=== PATIENT | female | born 1960 | race Two or more races ===

== ENCOUNTER 2016-04-04 14:17 | Emergency (ER) | payer OTHER ==
[2016-04-04 14:30] VITALS: TEMP 98.7; BMI 30.6
[2016-04-04] MEDS ORDERED: ALBUTEROL SO4 2.5/IPRATROPIUM 0.5 INH SOL 3 ML VIAL.NEB. NEB ONE ×3 (15:24→17:23)
[2016-04-04 16:03] LABS: BASOPHIL 0.9 % (0-2.0); EOSINOPHIL 3.3 % (0-4.5); MCH 31.5 pg (25.7-33.7); MCHC 34.6 g/dl (32.0-36.0); MEAN CELL VOLUME 91.1 fl (80-96); MEAN PLT VOLUME 8.7 fl (7.5-11.1); NEUTROPHILS 51.3 % (42.8-82.8); PLATELET COUNT 185 K/MM3 (134-434); RDW 12.8 % (11.6-15.6); WHITE BLOOD COUNT 5.8 K/mm3 (4.0-10.0)
--- NOTE | 2016-04-04 16:11 | EKG ---
Test Reason : Blood Pressure : / mmHG Vent. Rate : 087 BPM Atrial Rate : 087 BPM P-R Int : 156 ms QRS Dur : 084 ms QT Int : 366 ms P-R-T Axes : 035 011 027 degrees QTc Int : 440 ms NORMAL SINUS RHYTHM MINIMAL VOLTAGE CRITERIA FOR LVH, MAY BE NORMAL VARIANT BORDERLINE ECG WHEN COMPARED WITH ECG OF 25-NOV-2015 16:00, NO SIGNIFICANT CHANGE WAS FOUND Confirmed by JOEY RODRIGUEZ, ENZO ([id number]) on 04/04/2016 4:11:33 PM Referred By: Confirmed By:ENZO COOK MD
[2016-04-04] MEDS ORDERED: guaiFENesin/D-METHORPHAN HB 1 EACH TAB.ER.12H PO ONE (16:22)
[2016-04-04 16:34] LABS: ALK PHOS 164 U/L (45-117); ANION GAP 10 (8-16); BILIRUBIN,TOTAL 0.3 mg/dL (0.2-1.0); CO2 23 mmol/L (21-32); CREATININE 0.6 mg/dL (0.55-1.02); GLUCOSE,RANDOM 105 mg/dL (74-106); SGPT/ALT 43 U/L (12-78); TOT PROT 7.1 g/dl (6.4-8.2)
[2016-04-04] MEDS ORDERED: OSELTAMIVIR PHOSPHATE 75 MG CAPSULE ONE (16:36)
[2016-04-04 16:38] LABS: SGOT/AST 33 U/L (15-37)
[2016-04-04] MEDS ORDERED: morphine CARPU-JECT 2 MG/1 ML DISP.SYRIN IVPUSH ONE (16:54)
--- NOTE | 2016-04-04 17:02 | PDOC ---
*Physical Exam - Vital Signs Last Vital Signs Temp Pulse Resp BP Pulse Ox 98.7 F 100 H 18 114/87 100 04/04/16 14:27 04/04/16 14:27 04/04/16 14:27 04/04/16 14:27 04/04/16 14:27 ED Treatment Course - LABORATORY CBC & Chemistry Diagram: 04/04/16 15:55 04/04/16 15:53 - ADDITIONAL ORDERS Additional order review: Laboratory Results 04/04/16 15:53 Sodium 142 Potassium 4.6 Chloride 109 H Carbon Dioxide 23 Anion Gap 10 BUN 16 D Creatinine 0.6 Creat Clearance w eGFR > 60 Random Glucose 105 Calcium 9.0 Total Bilirubin 0.3 D AST 33 D ALT 43 Alkaline Phosphatase 164 H Total Protein 7.1 Albumin 4.0 04/04/16 15:55 Influenza Types A,B Antigen (ENIO) - Final Nasopharyngeal Swab - Final 04/04/16 15:55 RBC 4.74 MCV 91.1 MCHC 34.6 RDW 12.8 MPV 8.7 Neutrophils % 51.3 Lymphocytes % 36.2 Monocytes % 8.3 Eosinophils % 3.3 Basophils % 0.9 D - Medications Given in the ED: ED Medications Discontinued Medications Generic Name Dose Route Start Last Admin Trade Name Freq PRN Reason Stop Dose Admin Albuterol/Ipratropium 1 amp 04/04/16 15:24 04/04/16 16:01 Duoneb - NEB 04/04/16 15:25 1 amp ONCE ONE Administration Medical Decision Making - Medical Decision Making 04/04/16 16:54 Seen with MLP, I agree with the evaluation, assessment, and management as outlined with the following summary: 55y/o F with h/o asthma p/w URI sxs. Influenza A positive, VS wnl. labs wnl, no leukocytosis. received nebs, tamiflu. cxr pending. if wnl and respiratory status improves, can be discharged with PMD f/u. *DC/Admit/Observation/Transfer Diagnosis at time of Disposition: Influenza due to influenza virus, type A, human
[2016-04-04] MEDS ORDERED: OSELTAMIVIR PHOSPHATE 75 MG CAPSULE PO ONE (17:10)
[2016-04-04] MEDS ORDERED: morphine CARPU-JECT 2 MG/1 ML DISP.SYRIN ONE (17:22)
[2016-04-04] MEDS: ALBUTEROL SO4 2.5/IPRATROPIUM 0.5 INH SOL 3 ML VIAL.NEB. NEB SCH ×4 (17:25→18:17)
[2016-04-04 17:35] VITALS: BP 114/86; PULSE 93
--- NOTE | 2016-04-04 17:58 | PDOC ---
History of Present Illness - General Chief Complaint: Shortness of Breath Stated Complaint: COUGH, CHEST TIGHTNESS Time Seen by Provider: 04/04/16 15:05 - History of Present Illness Initial Comments: 04/04/16 17:51 Patient is a 55-year-old female past medical history of asthma, upper extremity DVT (2014), HIV, presenting to the ED today complaining of chest tightness. She states that her symptoms started 4 days ago and she has associated difficulty breathing cough and runny nose. Patient states she was seen at [facility] ER and was given a Z-Fab. She has not had any relief with the Z-Fab and states her symptoms are getting worse. Today she states that she feels that it very hard to take a deep breath. Pt. states that she only uses her inhaler for her asthma when she has upper respiratory symptoms. She has never been hospitalized for her asthma nor has she been intubated. Denies lightheadedness or dizziness, weakness, palpitations, nausea, vomiting, diarrhea. Denies recent travel. Patient states she had her flu shot this year Past History - Past Medical History Allergies/Adverse Reactions: Allergies Allergy/AdvReac Type Severity Reaction Status Date / Time Iodinated Contrast Media - Allergy Severe Hives Verified 04/04/16 14:26 Oral and [IV Dye, Iodine Containing Contrast ] levofloxacin [From Levaquin] Allergy Unknown Verified 04/04/16 14:26 prochlorperazine edisylate Allergy Unknown Itching Verified 04/04/16 14:26 [From Compazine] prochlorperazine maleate Allergy Unknown Itching Verified 04/04/16 14:26 [From Compazine] Sulfa (Sulfonamide Allergy Unknown Verified 04/04/16 14:26 Antibiotics) [Sulfa(Sulfonamide Antibiotics)] doxycycline AdvReac Severe Swelling Verified 04/04/16 14:26 Home Medications: Ambulatory Orders Efavirenz/Emtricitab/Tenofovir [Atripla Tablet] 1 each PO HS 09/12/12 Hydrocodone/Ibuprofen [Vicoprofen 7.5-200 mg Tablet] 1 each PO TID #20 tablet Omeprazole [Prilosec] 40 mg PO DAILY 06/12/14 Cyclobenzaprine HCl [Flexeril -] 10 mg PO DAILY 11/25/15 Albuterol Sulfate Inhaler - [Ventolin HFA Inhaler -] 1 - 2 inh PO Q4H #1 inhaler 04/04/16 Methylprednisolone [Medrol Dose Fab] 4 mg PO ASDIR #21 tablet 04/04/16 Oseltamivir Phosphate [Tamiflu -] 75 mg PO DAILY #5 capsule 04/06/16 Anemia: No Asthma: Yes Cancer: No Cardiac Disorders: No CVA: No COPD: No Dementia: No Diabetes: No GI Disorders: No Disorders: Yes (hx of kidney stones) HTN: No Hypercholesterolemia: Yes HIV: Yes Liver Disease: No Suicide Attempt (Hx): No Seizures: No Thyroid Disease: Yes (nodule on ultrasound) - Surgical History Abdominal Surgery: No Appendectomy: No Cardiac Surgery: No Cholecystectomy: No Lung Surgery: No Neurologic Surgery: No Orthopedic Surgery: (Right rotator cuff sx,Carpel tunnel) - Immunization History Immunization Up to Date: Yes - Psycho/Social/Smoking Cessation Hx Anxiety: No Suicidal Ideation: No Smoking Status: Yes Smoking History: Current every day smoker Have you smoked in the past 12 months: Yes Number of Cigarettes Smoked Daily: 8 If you are a former smoker, when did you quit?: 3 weeks ago Information on smoking cessation initiated: Yes 'Breaking Loose' booklet given: 04/04/16 Hx Alcohol Use: No Drug/Substance Use Hx: No Substance Use Type: None Hx Substance Use Treatment: No *Physical Exam - Vital Signs Last Vital Signs Temp Pulse Resp BP Pulse Ox 98.7 F 93 H 14 114/86 100 04/04/16 14:27 04/04/16 17:34 04/04/16 17:34 04/04/16 17:34 04/04/16 17:34 - Physical Exam Comments: 04/04/16 17:58 GENERAL: Well developed, well nourished. Awake and alert. No acute distress. HEENT: Normocephalic, atraumatic. PERRLA, EOMI. No conjunctival pallor. Sclera are non- icteric. Moist mucous membranes. Oropharynx shows erythema.. NECK: Supple. Full ROM. No JVD. Carotid pulses 2+ and symmetric, without bruits. No thyromegaly. No lymphadenopathy. CARDIOVASCULAR: Regular rate and rhythm. No murmurs, rubs, or gallops. Distal pulses are 2+ and symmetric. PULMONARY: No evidence of respiratory distress. (+) wheezing in the apices b/l. No rales or rhonchi. ABDOMINAL: Soft. Non-tender. Non-distended. No rebound or guarding. No organomegaly. Normoactive bowel sounds. MUSCULOSKELETAL Normal range of motion at all joints. No bony deformities or tenderness. No CVA tenderness. EXTREMITIES: No cyanosis. No clubbing. No edema. No calf tenderness. SKIN: Warm and dry. Normal capillary refill. No rashes. No jaundice. NEUROLOGICAL: Alert, awake, appropriate. Cranial nerves 2-12 intact. No deficits to light touch and temperature in face, upper extremities and lower extremities. No motor deficits in the in face, upper extremities and lower extremities. Normoreflexic in the upper and lower extremities. Normal speech. Toes are down- going bilaterally. Gait is normal without ataxia. PSYCHIATRIC: Cooperative. Good eye contact. Appropriate mood and affect. ED Treatment Course - LABORATORY CBC & Chemistry Diagram: 04/04/16 15:55 04/04/16 15:53 - ADDITIONAL ORDERS Additional order review: Laboratory Results 04/04/16 15:53 Sodium 142 Potassium 4.6 Chloride 109 H Carbon Dioxide 23 Anion Gap 10 BUN 16 D Creatinine 0.6 Creat Clearance w eGFR > 60 Random Glucose 105 Calcium 9.0 Total Bilirubin 0.3 D AST 33 D ALT 43 Alkaline Phosphatase 164 H Total Protein 7.1 Albumin 4.0 04/04/16 15:55 Influenza Types A,B Antigen (ENIO) - Final Nasopharyngeal Swab - Final 04/04/16 15:55 RBC 4.74 MCV 91.1 MCHC 34.6 RDW 12.8 MPV 8.7 Neutrophils % 51.3 Lymphocytes % 36.2 Monocytes % 8.3 Eosinophils % 3.3 Basophils % 0.9 D - RADIOLOGY Radiology Studies Ordered: Category Date Time Status CHEST PA & LAT [RAD] Stat Radiology 04/04/16 15:24 Taken - Medications Given in the ED: ED Medications Discontinued Medications Generic Name Dose Route Start Last Admin Trade Name Freq PRN Reason Stop Dose Admin Albuterol/Ipratropium 1 amp 04/04/16 15:24 04/04/16 16:01 Duoneb - NEB 04/04/16 15:25 1 amp ONCE ONE Administration Albuterol/Ipratropium 1 amp 04/04/16 17:00 04/04/16 17:34 Duoneb - NEB 04/04/16 17:46 1 amp Q15M LISA Administration Guaifenesin 1 tablet 04/04/16 16:22 04/04/16 17:33 Mucinex Dm - PO 04/04/16 16:23 1 tablet NOW ONE Administration Morphine Sulfate 2 mg 04/04/16 16:54 04/04/16 17:33 Morphine Injection - IVPUSH 04/04/16 16:55 2 mg ONCE ONE Administration Oseltamivir Phosphate 75 mg 04/04/16 17:10 04/04/16 16:38 Tamiflu - PO 04/04/16 17:11 75 mg ONCE ONE Administration Medical Decision Making - Medical Decision Making 04/04/16 15:34 1. Patient is a 55-year-old female past medical history of asthma for extremity DVT, HIV, presenting with upper respiratory infection symptoms and shortness of breath for 4 days. Given that her symptoms are not resolving with the Z-Fab will consider further swabbing at this time. Patient does have wheezing on exam. Will order a DuoNeb treatment. We'll also draw basic labs obtain an EKG and chest x-ray. We'll also rule out pneumonia. Wells criteria puts the paitent in the low risk category for PE. CBC CMP and chest x-ray One duoneb treatment Mucinex flu swab Will re-evaluate 04/04/16 16:28 Influenza A is positive. We'll give a treatment of Tamiflu now. Patient is asking for pain medication for her chest tightness and rib pain secondary to coughing. Patient uses oxycodone with ibuprofen at home. She gets this regularly through her primary care provider and is compliant with use. Did iStop the patient. We'll give 2 of morphine now. 17:15 Chest x-ray shows no evidence of pneumonia. No acute cardiopulmonary pathology. Patient still complaining of some chest tightness will order 3 nebulizers to be given within 15 minutes to see if her symptoms resolve. Patient is currently tachycardic at 100 we'll start fluids and give Tylenol for most likely underlying low-grade fever. 04/04/16 17:49 Patient's pulse was down to 92 now. Fluids and Tylenol seem to be helping. We will discharge home at this time. Patient knows that the flu as a viral illness and antibiotics will not help to treat it. She was advised to stop taking the Z- Fab at home. Patient confers understanding. Will write patient for Tamiflu even now she is a day outside of target range, as she has high risk because of her asthma. We'll also write a prescription for inhaler and for steroids. *DC/Admit/Observation/Transfer Diagnosis at time of Disposition: Influenza A - Discharge Dispostion Disposition: HOME Condition at time of disposition: Improved Admit: No - Prescriptions Prescriptions: Methylprednisolone [Medrol Dose Fab] 4 mg PO ASDIR #21 tablet Oseltamivir Phosphate [Tamiflu -] 75 mg PO DAILY #5 capsule Albuterol Sulfate Inhaler - [Ventolin HFA Inhaler -] 1 - 2 inh PO Q4H #1 inhaler - Referrals Referrals: Zaheer Pope MD [Primary Care Provider] - - Patient Instructions Printed Discharge Instructions: DI for Influenza -- Adult Additional Instructions: U have the flu. It is possible to get the flu even with the flu shot as the flu shot does not cover all strains of the flu. Get plenty of rest and drink plenty of fluids to avoid dehydration. Take your prednisone as prescribed. Use the inhaler as prescribed until her symptoms dissipate then use as needed. Return to the ED if you experience increasing shortness of breath, high fevers, dehydration. - Post Discharge Activity
[2016-04-04] MEDS ORDERED: SODIUM CHLORIDE 1,000 ML IV STA (18:18)
[2016-04-04] MEDS ORDERED: ACETAMINOPHEN 325 MG TABLET (FP) PO ONE (18:19)
[2016-04-04] MEDS ORDERED: ACETAMINOPHEN 325 MG TABLET (FP) ONE (18:34)
== END 2016-04-04 19:42 | disposition home or self-care (01) ==
LOC: JER 14:17
PROC: 3E0337Z Introduction of Electrolytic and Water Balance Substance into Peripheral Vein, Percutaneous Approach (ICD-10-PCS; principal; 2016-04-04)
PROC: 3E033NZ Introduction of Analgesics, Hypnotics, Sedatives into Peripheral Vein, Percutaneous Approach (ICD-10-PCS; 2016-04-04)
PROC: 3E0F7GC Introduction of Other Therapeutic Substance into Respiratory Tract, Via Natural or Artificial Opening (ICD-10-PCS; 2016-04-04)
DX: J09.X2 Influenza due to identified novel influenza A virus with other respiratory manifestations (principal); Z21 Asymptomatic human immunodeficiency virus [HIV] infection status; Z86.718 Personal history of other venous thrombosis and embolism
CPT/HCPCS: 36415; 71020-TC; 80053; 85025; 87804; 93005; 93010; 94640; 96361; 96374; 99284-25

== ENCOUNTER 2016-09-29 14:15 | Emergency (ER) | payer OTHER ==
[2016-09-29 14:20] VITALS: BP 130/80; PULSE 94; TEMP 98; BMI 32.2
--- NOTE | 2016-09-29 14:49 | PDOC ---
History of Present Illness - General Chief Complaint: Diarrhea Stated Complaint: WEAKNESS,VOMITING Time Seen by Provider: 09/29/16 14:49 - History of Present Illness Initial Comments: 55 year old female with HIV (CD4 600+ and VL undetectable 08/26/16) presenting with nausea and diarrhea for the past 5 days. She was at a barbeque 6 days ago and had chicken and beef that she believed was thoroughly cooked. Her symptoms started 24 hours after the barbeque the next afternoon with nausea, one episode of vomiting and diarrhea. She has had progressively worsening diarrhea since then up to 7 times per day. The vomiting is non-bilious, non-bloody and the diarrhea is non-bloody. Her appetite is not decreased and she is able to keep food down without vomiting despite some slight nausea. She has also had some diaphoresis while having diarrhea. Denies chest pain, fevers, chills, or other concerning symptoms. 09/29/16 16:08 Past History - Past Medical History Allergies/Adverse Reactions: Allergies Allergy/AdvReac Type Severity Reaction Status Date / Time Iodinated Contrast- Oral and Allergy Severe Hives Verified 09/29/16 14:17 IV Dye [IV Dye, Iodine Containing Contrast ] levofloxacin [From Levaquin] Allergy Unknown Verified 09/29/16 14:17 prochlorperazine edisylate Allergy Unknown Itching Verified 09/29/16 14:17 [From Compazine] prochlorperazine maleate Allergy Unknown Itching Verified 09/29/16 14:17 [From Compazine] Sulfa (Sulfonamide Allergy Unknown Verified 09/29/16 14:17 Antibiotics) [Sulfa(Sulfonamide Antibiotics)] doxycycline AdvReac Severe Swelling Verified 09/29/16 14:17 famotidine [From Pepcid] AdvReac Intermediate Verified 09/29/16 19:06 Home Medications: Ambulatory Orders Efavirenz/Emtricitab/Tenofovir [Atripla Tablet] 1 each PO HS 09/12/12 Omeprazole [Prilosec] 40 mg PO DAILY 06/12/14 Diphenhydramine HCl [Benadryl -] 25 mg PO HS 09/29/16 Hydrocodone/Ibuprofen [Vicoprofen 7.5-200 mg Tablet] 1 each PO ASDIR 09/29/16 Loperamide HCl [Imodium -] 2 mg PO DAILY PRN #7 capsule 09/29/16 Ondansetron HCl [Zofran] 4 mg PO BID PRN #30 tablet 09/29/16 Anemia: No Asthma: Yes Cancer: No Cardiac Disorders: No CVA: No COPD: No Dementia: No Diabetes: No GI Disorders: Yes (rodriguez's esophagus) Disorders: Yes (hx of kidney stones) HTN: No Hypercholesterolemia: Yes HIV: Yes Liver Disease: No Suicide Attempt (Hx): No Seizures: No Thyroid Disease: Yes (nodule on ultrasound) - Surgical History Abdominal Surgery: No Appendectomy: No Cardiac Surgery: (cardiac cath x 2) Cholecystectomy: No Lung Surgery: No Neurologic Surgery: No Orthopedic Surgery: (Right rotator cuff sx,Carpel tunnel) - Immunization History Immunization Up to Date: Yes - Psycho/Social/Smoking Cessation Hx Anxiety: No Suicidal Ideation: No Smoking Status: Yes Smoking History: Current every day smoker Have you smoked in the past 12 months: Yes Number of Cigarettes Smoked Daily: 10 If you are a former smoker, when did you quit?: 3 weeks ago Information on smoking cessation initiated: No 'Breaking Loose' booklet given: 04/04/16 Hx Alcohol Use: No Drug/Substance Use Hx: No Substance Use Type: None Hx Substance Use Treatment: No Review of Systems - Review of Systems Constitutional: Yes: Diaphoresis. No: Chills, Fever HEENTM: No: Blurred Vision, Recent change in vision Respiratory: No: Cough, Shortness of Breath Cardiac (ROS): No: Chest Pain, Edema ABD/GI: Yes: Diarrhea, Nausea, Vomiting. No: Constipated : No: Dysuria, Discharge Neurological: No: Headache, Numbness, Paresthesia *Physical Exam - Vital Signs Last Vital Signs Temp Pulse Resp BP Pulse Ox 98.0 F 94 H 18 130/80 99 09/29/16 14:18 09/29/16 14:18 09/29/16 14:18 09/29/16 14:18 09/29/16 14:18 - Physical Exam General Appearance: Yes: Nourished, Appropriately Dressed HEENT: positive: EOMI, TYLER, Normal Voice Neck: positive: Tender, Trachea midline, Normal Thyroid, Supple. negative: Rigid Respiratory/Chest: positive: Lungs Clear, Normal Breath Sounds. negative: Chest Tender, Respiratory Distress Cardiovascular: positive: Regular Rhythm, Regular Rate Gastrointestinal/Abdominal: positive: Normal Bowel Sounds, Tender (Upper left quadrant and epigastric tnederness to light palpation with diffuse trace tenderness.), Flat, Soft Integumentary: positive: Normal Color Neurologic: positive: Fully Oriented, Alert, Normal Mood/Affect ED Treatment Course - LABORATORY CBC & Chemistry Diagram: 09/29/16 17:30 09/29/16 17:30 Medical Decision Making - Medical Decision Making 55 year old female with history of GERD and HIV (non-imunocompromised) presenting with nausea and diarrhea for the for the past 5 days. This is most likely viral but will get CBC, CMP, EKG, and treat symptomatically with 2L NS, Zofran (given normal QT), viscous lidocaine, maalox, and Pepcid. 09/29/16 17:55 09/29/16 19:07 Patient's symptoms resolved, VSS, abdominal tenderness resolved, labs WNL, and PO challenge successful. Will discharge with Zofran and Maalox + follow up with PCP in two days. 09/29/16 19:09 *DC/Admit/Observation/Transfer Diagnosis at time of Disposition: Gastroenteritis - Discharge Dispostion Disposition: HOME Condition at time of disposition: Improved Admit: No - Prescriptions Prescriptions: Loperamide HCl [Imodium -] 2 mg PO DAILY PRN #7 capsule PRN Reason: Diarrhea Ondansetron HCl [Zofran] 4 mg PO BID PRN #30 tablet PRN Reason: Nausea And/Or Vomiting - Referrals Referrals: Zaheer Pope MD [Primary Care Provider] - - Patient Instructions Additional Instructions: You were seen for diarrhea, nausea, and vomiting. We looked at your blood and found no problems. We treated your symptoms with fluids and anti-nausea medications. Please take your medications as prescribed. Please follow up with your primary care physician in two days. Please return if your diarrhea doesn't get better in a few days or if you get fevers, chills, or worsening vomiting over the next few days. - Attestations Physician Attestion: 09/29/16 19:22 I, Dr. Bartolome Dumont, attest that this document has been prepared under my direction and personally reviewed by me in its entirety. I further attest, that it accurately reflects all work, treatment, procedures and medical decision -making performed by me.
[2016-09-29] MEDS ORDERED: SODIUM CHLORIDE 0.9% 1000 ML INFUS.BAG IV ONE (16:10)
--- NOTE | 2016-09-29 16:10 | PDOC ---
Attending Attestation - Resident Resident Name: Bartolome Dumont - ED Attending Attestation I have performed the following: I have examined & evaluated the patient, The case was reviewed & discussed with the resident, I agree w/resident's findings & plan, Exceptions are as noted - HPI HPI: 09/29/16 16:09 55-year-old female history of HIV (CD4 count in the low 1000s, viral load undetectable per patient), GERD presents with 4 days of diarrhea. Patient reports nonbloody nonbilious watery stools since Monday that were initially associated with nausea and one episode of vomiting. She continues to report nausea however has not vomited for 4 days. Patient presented today to the emergency department because she felt she was dehydrated and has had some lightheadedness when she ambulates. Denies fevers. +chills. Denies headache, chest pain, shortness of breath, abdominal pain, rashes, dysuria, lower extremity edema. Not tried any medications for her symptoms. 09/29/16 17:27 - Physicial Exam PE: 09/29/16 16:49 GENERAL: Awake, alert, and fully oriented, in no acute distress HEAD: No signs of trauma EYES: PERRLA, EOMI, sclera anicteric, conjunctiva clear ENT: Auricles normal inspection, hearing grossly normal, nares patent, oropharynx clear without exudates. dry MM NECK: Normal ROM, supple, no lymphadenopathy, JVD, or masses LUNGS: Breath sounds equal, clear to auscultation bilaterally. No wheezes, and no crackles HEART: Regular rate and rhythm, normal S1 and S2, no murmurs, rubs or gallops ABDOMEN: Soft, hyperactive bowel sounds. No guarding, no rebound. No masses. + mild epigastric ttp and LUQ ttp. EXTREMITIES: Normal range of motion, no edema. No clubbing or cyanosis. No cords, erythema, or tenderness NEUROLOGICAL: Normal speech, cranial nerves intact, negative pronator drift, 5/ 5 strength in all 4 extremities, normal sensation to light touch in all 4 extremities, normal cerebellar exam, normal gait, normal reflexes and tone SKIN: Warm, Dry, normal turgor, no rashes or lesions noted. 09/29/16 17:30 - Medical Decision Making 09/29/16 17:27 55-year-old female history of well-controlled HIV presents with nausea and nonbloody diarrhea as well as one episode of vomiting 4 days ago. Exam remarkable for epigastric and left upper quadrant tenderness to palpation. Likely viral gastroenteritis. We'll check blood work, start IV fluids and given a GI cocktail for pain relief. -labs -IVF -GI cocktail -reassess
[2016-09-29] MEDS ORDERED: ONDANSETRON 4 MG/2 ML VIAL IVPUSH ONE (17:21)
[2016-09-29] MEDS ORDERED: ONDANSETRON 4 MG/2 ML VIAL ONE (17:28)
[2016-09-29] MEDS ORDERED: FAMOTIDINE 20 MG/50 ML IVPB 50 ML IVPB ONE (17:35)
[2016-09-29] MEDS ORDERED: MAG HYDROX/AL HYDROX/SIMETH 30 ML UNIT-DOSE CUP PO ONE (17:35)
[2016-09-29] MEDS ORDERED: LIDOCAINE VISCOUS 2% ORAL/TOP 20 ML UNIT-DOSE CUP MM ONE (17:36)
[2016-09-29 17:38] LABS: BASOPHIL 1.1 % (0-2.0); EOSINOPHIL 2.5 % (0-4.5); MCH 31.9 pg (25.7-33.7); MEAN CELL VOLUME 91.1 fl (80-96); MEAN PLT VOLUME 8.6 fl (7.5-11.1); NEUTROPHILS 53.4 % (42.8-82.8); PLATELET COUNT 217 K/MM3 (134-434); RDW 12.9 % (11.6-15.6); WHITE BLOOD COUNT 7.8 K/mm3 (4.0-10.0)
[2016-09-29 18:06] LABS: ALK PHOS 163 U/L (45-117); ANION GAP 11 (8-16); BILIRUBIN,TOTAL 0.4 mg/dL (0.2-1.0); CALCIUM 9.4 mg/dL (8.5-10.1); CO2 24 mmol/L (21-32); CREATININE 0.6 mg/dL (0.55-1.02); GLUCOSE,RANDOM 96 mg/dL (74-106); MAGNESIUM 2.3 mg/dL (1.8-2.4); PHOSPHOROUS 3.8 mg/dL (2.5-4.9); SGOT/AST 15 U/L (15-37); SGPT/ALT 32 U/L (12-78); TOT PROT 7.2 g/dl (6.4-8.2)
--- NOTE | 2016-09-30 09:30 | EKG ---
Test Reason : Blood Pressure : / mmHG Vent. Rate : 066 BPM Atrial Rate : 066 BPM P-R Int : 154 ms QRS Dur : 086 ms QT Int : 412 ms P-R-T Axes : 044 020 040 degrees QTc Int : 431 ms NORMAL SINUS RHYTHM WHEN COMPARED WITH ECG OF 04-APR-2016 15:34, NO SIGNIFICANT CHANGE WAS FOUND Confirmed by SCOOTER GOOD MD ([id number]) on 09/30/2016 9:29:42 AM Referred By: Confirmed By:SCOOTER GOOD MD
== END 2016-09-29 19:30 | disposition home or self-care (01) ==
LOC: JER 14:15
PROC: 3E033GC Introduction of Other Therapeutic Substance into Peripheral Vein, Percutaneous Approach (ICD-10-PCS; principal; 2016-09-29)
DX: K52.9 Noninfective gastroenteritis and colitis, unspecified (principal); J45.909 Unspecified asthma, uncomplicated; K22.70 Barrett's esophagus without dysplasia; K21.9 Gastro-esophageal reflux disease without esophagitis; B20 Human immunodeficiency virus [HIV] disease; E78.00 Pure hypercholesterolemia, unspecified; F17.210 Nicotine dependence, cigarettes, uncomplicated
CPT/HCPCS: 36415; 80053; 83735; 84100; 85025; 93005; 93010; 96365; 96375; 99283-25

== ENCOUNTER 2017-02-27 10:07 | Emergency (ER) | payer OTHER ==
[2017-02-27 10:16] VITALS: BMI 30.9
[2017-02-27 11:57] LABS: URINE APPEARANCE CLEAR; URINE BILIRUBIN NEGATIVE (NEGATIVE); URINE BLOOD NEGATIVE (NEGATIVE); URINE COLOR YELLOW; URINE GLUCOSE (UA) NEGATIVE (NEGATIVE); URINE KETONE NEGATIVE (NEGATIVE); URINE NITRITE NEGATIVE (NEGATIVE); URINE PROTEIN NEGATIVE (NEGATIVE); URINE UROBILINOGEN NEGATIVE mg/dL (0.2-1.0)
[2017-02-27] MEDS ORDERED: morphine CARPU-JECT 4 MG/1 ML DISP.SYRIN IVPUSH ONE (12:30)
[2017-02-27] MEDS ORDERED: ONDANSETRON 4 MG/2 ML VIAL IVPUSH ONE (12:30)
[2017-02-27] MEDS ORDERED: SODIUM CHLORIDE 0.9% 1000 ML INFUS.BAG IV ONE (12:30)
[2017-02-27 13:03] LABS: BASO % 1.2 % (0-2.0); EOS % 2.6 % (0-4.5); HEMATOCRIT 44.2 % (32.4-45.2); HEMOGLOBIN 14.7 GM/dL (10.7-15.3); LYMPH % 34.2 % (8-40); MCH 30.4 pg (25.7-33.7); MCHC 33.3 g/dl (32.0-36.0); MEAN CELL VOLUME 91.1 fl (80-96); MEAN PLT VOLUME 8.5 fl (7.5-11.1); MONO % 7.3 % (3.8-10.2); NEUT % 54.7 % (42.8-82.8); PLATELET COUNT 207 K/MM3 (134-434); RBC 4.85 M/mm3 (3.60-5.2); RDW 13.1 % (11.6-15.6); WHITE BLOOD COUNT 7.6 K/mm3 (4.0-10.0)
--- NOTE | 2017-02-27 13:15 | PDOC ---
History of Present Illness - General Chief Complaint: Cold Symptoms Stated Complaint: SOB Time Seen by Provider: 02/27/17 11:10 History Source: Patient Exam Limitations: No Limitations - History of Present Illness Travel History: No Initial Comments: 02/27/17 13:13 56 yr female with FLU c/o right sided pain radiates to under her right breast to back started 2 days ago getting worse. No vomiting or diarrhea. no aggrevating or alleviating factors. Timing/Duration: reports: constant, getting worse Abdominal Pain Onset Location: reports: RUQ Past History - Past Medical History Allergies/Adverse Reactions: Allergies Allergy/AdvReac Type Severity Reaction Status Date / Time Iodinated Contrast- Oral and Allergy Severe Hives Verified 02/27/17 10:11 IV Dye [IV Dye, Iodine Containing Contrast ] levofloxacin [From Levaquin] Allergy Unknown Verified 02/27/17 10:11 prochlorperazine edisylate Allergy Unknown Itching Verified 02/27/17 10:11 [From Compazine] prochlorperazine maleate Allergy Unknown Itching Verified 02/27/17 10:11 [From Compazine] Sulfa (Sulfonamide Allergy Unknown Verified 02/27/17 10:11 Antibiotics) [Sulfa(Sulfonamide Antibiotics)] doxycycline AdvReac Severe Swelling Verified 02/27/17 10:11 famotidine [From Pepcid] AdvReac Intermediate Verified 02/27/17 10:11 Home Medications: Ambulatory Orders Efavirenz/Emtricitab/Tenofovir [Atripla Tablet] 1 each PO HS 09/12/12 Omeprazole [Prilosec] 40 mg PO DAILY 06/12/14 Diphenhydramine HCl [Benadryl -] 25 mg PO HS 09/29/16 Hydrocodone/Ibuprofen [Vicoprofen 7.5-200 mg Tablet] 1 each PO ASDIR 09/29/16 Loperamide HCl [Imodium -] 2 mg PO DAILY PRN #7 capsule 09/29/16 Ondansetron HCl [Zofran] 4 mg PO BID PRN #30 tablet 09/29/16 Azithromycin [Zithromax 1gm Fab -] 1 gm PO DAILY 02/27/17 Anemia: No Asthma: Yes Cancer: No Cardiac Disorders: No CVA: No COPD: No Dementia: No Diabetes: No GI Disorders: No Disorders: Yes (hx of kidney stones) HTN: No Hypercholesterolemia: Yes HIV: Yes Liver Disease: No Seizures: No Thyroid Disease: Yes (nodule on ultrasound) Other medical history: VERTIGO - Surgical History Abdominal Surgery: No Appendectomy: No Cardiac Surgery: No Cholecystectomy: No Lung Surgery: No Neurologic Surgery: No Orthopedic Surgery: (Right rotator cuff sx,Carpel tunnel) - Immunization History Immunization Up to Date: Yes - Suicide/Smoking/Psychosocial Hx Smoking Status: Yes Smoking History: Current every day smoker Have you smoked in the past 12 months: Yes Number of Cigarettes Smoked Daily: 8 If you are a former smoker, when did you quit?: 3 weeks ago Information on smoking cessation initiated: No 'Breaking Loose' booklet given: 04/04/16 Hx Alcohol Use: No Drug/Substance Use Hx: No Substance Use Type: None Hx Substance Use Treatment: No Abd/GI Specific PMHX - Complaint Specific PMHX Colitis: No Diverticulitis: No Gall Bladder Disease: No Review of Systems - Review of Systems Able to Perform ROS?: Yes Is the patient limited Upper Sorbian proficient: No Constitutional: No: Symptoms Reported HEENTM: No: Symptoms Reported Respiratory: No: Symptoms reported Cardiac (ROS): No: Symptoms Reported ABD/GI: Yes: Symptoms Reported *Physical Exam - Vital Signs Last Vital Signs Temp Pulse Resp BP Pulse Ox 97.8 F 93 H 17 119/74 99 02/27/17 10:11 02/27/17 10:11 02/27/17 10:11 02/27/17 10:11 02/27/17 10:11 - Physical Exam General Appearance: Yes: Nourished, Appropriately Dressed HEENT: positive: EOMI, TYLER, TMs Normal, Pharynx Normal Neck: positive: Supple. negative: Tender Respiratory/Chest: positive: Lungs Clear, Normal Breath Sounds Cardiovascular: positive: Regular Rhythm, Regular Rate Gastrointestinal/Abdominal: positive: Normal Bowel Sounds, Tender (RUQ), Soft, Tenderness. negative: Guarding, Rebound Lymphatic: negative: Adenopathy Musculoskeletal: positive: Normal Inspection Extremity: positive: Normal Capillary Refill, Normal Inspection, Normal Range of Motion Integumentary: positive: Normal Color, Dry, Warm Neurologic: positive: Fully Oriented, Alert, Normal Mood/Affect, Normal Response , Motor Strength 5/5 ED Treatment Course - LABORATORY CBC & Chemistry Diagram: 02/27/17 12:55 02/27/17 12:55 - ADDITIONAL ORDERS Additional order review: Laboratory Results 02/27/17 11:37 Urine Color Yellow Urine Appearance Clear Urine pH 5.0 Ur Specific [place] 1.018 Urine Protein Negative Urine Glucose (UA) Negative Urine Ketones Negative Urine Blood Negative Urine Nitrite Negative Urine Bilirubin Negative Urine Urobilinogen Negative Ur Leukocyte Esterase Negative 02/27/17 12:55 RBC 4.85 MCV 91.1 MCHC 33.3 RDW 13.1 MPV 8.5 Neutrophils % 54.7 Lymphocytes % 34.2 Monocytes % 7.3 Eosinophils % 2.6 Basophils % 1.2 - Medications Given in the ED: ED Medications Discontinued Medications Generic Name Dose Route Start Last Admin Trade Name Gerald PRN Reason Stop Dose Admin Morphine Sulfate 4 mg 02/27/17 12:30 02/27/17 12:30 Morphine Injection - IVPUSH 02/27/17 12:31 4 mg ONCE ONE Administration Ondansetron HCl 4 mg 02/27/17 12:30 02/27/17 12:30 Zofran Injection IVPUSH 02/27/17 12:31 4 mg ONCE ONE Administration Sodium Chloride 1,000 ml 02/27/17 12:30 02/27/17 12:30 Normal Saline - IV 02/27/17 12:31 1,000 ml ONCE ONE Administration Medical Decision Making - Medical Decision Making 02/27/17 13:15 cc: RUQ pain sent for labs, US from fast track will give pain meds and re-evaluate 02/27/17 13:49 examined by and pt states pain has improved after the pain meds. US resulted, labs resulted *DC/Admit/Observation/Transfer Diagnosis at time of Disposition: Musculoskeletal pain - Discharge Dispostion Disposition: HOME Condition at time of disposition: Improved - Referrals Referrals: Yandel Johnson MD [Primary Care Provider] - Van Samuels MD [Staff Physician] - - Patient Instructions Additional Instructions: please follow with the surgeon if symptoms worsen or persist bland diet as tolerated avoid any spicy or fatty foods that may worsen you pain if the gallstone is causing your pain frequent hand washing take ibuprofen 800mg every 6hrs with food as needed for pain please call your primary care doctor to arrange for follow up within the next 48hrs return to ER for any worsening symptoms - Post Discharge Activity
[2017-02-27] MEDS ORDERED: HYDROmorphone HCL CARPU-JECT 1 MG/1 ML DISP.SYRIN IVPUSH ONE (13:22)
[2017-02-27] MEDS ORDERED: HYDROmorphone HCL CARPU-JECT 1 MG/1 ML DISP.SYRIN ONE (13:25)
[2017-02-27 13:42] LABS: ANION GAP 10 (8-16); BLOOD UREA NITROGEN 14 mg/dL (7-18); CALCIUM 9.2 mg/dL (8.5-10.1); CHLORIDE 108 mmol/L (98-107); CO2 25 mmol/L (21-32); GLUCOSE,RANDOM 104 mg/dL (74-106); LIPASE 117 U/L (73-393); POTASSIUM 4.7 mmol/L (3.5-5.1); SODIUM 143 mmol/L (136-145)
[2017-02-27 13:47] LABS: ALK PHOS 179 U/L (45-117); BILIRUBIN,TOTAL 0.3 mg/dL (0.2-1.0); CREATININE 0.6 mg/dL (0.55-1.02); SGOT/AST 26 U/L (15-37); SGPT/ALT 42 U/L (12-78); TOT PROT 7.1 g/dl (6.4-8.2)
[2017-02-27 14:18] VITALS: BP 115/70; PULSE 86; TEMP 98.1
--- NOTE | 2017-02-27 15:25 | PDOC ---
*Physical Exam - Vital Signs Last Vital Signs Temp Pulse Resp BP Pulse Ox 98.1 F 86 18 115/70 100 02/27/17 14:17 02/27/17 14:17 02/27/17 14:17 02/27/17 14:17 02/27/17 14:17 - Physical Exam Comments: 02/27/17 15:22 Vital signs stable, afebrile, O2 sat normal Superficial discomfort to palpation over the right lower anterior and lateral ribs with pinpoint discomfort to palpation but no overlying bruising or rash, no right upper quadrant tenderness or guarding. Belly is soft/nondistended. No CVA tenderness ED Treatment Course - LABORATORY CBC & Chemistry Diagram: 02/27/17 12:55 02/27/17 12:55 - ADDITIONAL ORDERS Additional order review: Laboratory Results 02/27/17 02/27/17 02/27/17 12:55 12:55 11:37 Sodium 143 Potassium 4.7 Chloride 108 H Carbon Dioxide 25 Anion Gap 10 BUN 14 Creatinine 0.6 Creat Clearance w eGFR > 60 Random Glucose 104 Calcium 9.2 Total Bilirubin 0.3 D AST 26 D ALT 42 D Alkaline Phosphatase 179 H Total Protein 7.1 Albumin 4.0 Lipase 117 Urine Color Yellow Urine Appearance Clear Urine pH 5.0 Ur Specific [place] 1.018 Urine Protein Negative Urine Glucose (UA) Negative Urine Ketones Negative Urine Blood Negative Urine Nitrite Negative Urine Bilirubin Negative Urine Urobilinogen Negative Ur Leukocyte Esterase Negative Blood Type O POSITIVE Antibody Screen Negative 02/27/17 12:55 RBC 4.85 MCV 91.1 MCHC 33.3 RDW 13.1 MPV 8.5 Neutrophils % 54.7 Lymphocytes % 34.2 Monocytes % 7.3 Eosinophils % 2.6 Basophils % 1.2 - Medications Given in the ED: ED Medications Discontinued Medications Generic Name Dose Route Start Last Admin Trade Name Freq PRN Reason Stop Dose Admin Hydromorphone HCl 0.5 mg 02/27/17 13:22 02/27/17 13:24 Dilaudid Injection - IVPUSH 02/27/17 13:23 0.5 mg ONCE ONE Administration Morphine Sulfate 4 mg 02/27/17 12:30 02/27/17 12:30 Morphine Injection - IVPUSH 02/27/17 12:31 4 mg ONCE ONE Administration Ondansetron HCl 4 mg 02/27/17 12:30 02/27/17 12:30 Zofran Injection IVPUSH 02/27/17 12:31 4 mg ONCE ONE Administration Sodium Chloride 1,000 ml 02/27/17 12:30 02/27/17 12:30 Normal Saline - IV 02/27/17 12:31 1,000 ml ONCE ONE Administration Medical Decision Making - Medical Decision Making 02/27/17 15:23 Patient seen and evaluated with the nurse practitioner. I agree with the overall evaluation, assessment, and management with the following summary of visit: 56-year-old female HIV well-controlled presents with right lower rib pain in the setting of recent URI symptoms and cough. Referred from [facility] for further evaluation of right upper quadrant pain. Labs are within normal limits Chest x-ray and right upper quadrant ultrasound showed no acute pathology On my evaluation, patient's tenderness is more musculoskeletal and located in the right lower ribs, consistent with muscle/cartilage strain in the setting of recent cough Patient is well-appearing and comfortable, agrees with discharge plan on her home pain medications, will continue her previously prescribed azithromycin and Tamiflu, and understands return criteria. *DC/Admit/Observation/Transfer Diagnosis at time of Disposition: Musculoskeletal pain - Discharge Dispostion Disposition: HOME Condition at time of disposition: Improved - Referrals Referrals: Yandel Johnson MD [Primary Care Provider] - Van Samuels MD [Staff Physician] - - Patient Instructions Additional Instructions: please follow with the surgeon if symptoms worsen or persist bland diet as tolerated avoid any spicy or fatty foods that may worsen you pain if the gallstone is causing your pain frequent hand washing take ibuprofen 800mg every 6hrs with food as needed for pain please call your primary care doctor to arrange for follow up within the next 48hrs return to ER for any worsening symptoms - Post Discharge Activity
== END 2017-02-27 14:24 | disposition home or self-care (01) ==
LOC: JER 10:07 → JERFT 10:07 → JER 14:24
PROC: 3E033NZ Introduction of Analgesics, Hypnotics, Sedatives into Peripheral Vein, Percutaneous Approach (ICD-10-PCS; principal; 2017-02-27)
PROC: 3E033NZ Introduction of Analgesics, Hypnotics, Sedatives into Peripheral Vein, Percutaneous Approach (ICD-10-PCS; 2017-02-27)
PROC: 3E033GC Introduction of Other Therapeutic Substance into Peripheral Vein, Percutaneous Approach (ICD-10-PCS; 2017-02-27)
DX: R10.11 Right upper quadrant pain (principal); J06.9 Acute upper respiratory infection, unspecified; Z21 Asymptomatic human immunodeficiency virus [HIV] infection status
CPT/HCPCS: 36415; 71046-TC; 76705-TC; 80053; 81003; 83690; 85025; 86850; 86900; 86901; 87086; 96374; 96375; 99283-25

== ENCOUNTER 2017-06-04 19:21 | Emergency (ER) | payer OTHER ==
[2017-06-04 19:26] VITALS: BP 135/81; PULSE 109; TEMP 98.5; BMI 30.9
[2017-06-04] MEDS ORDERED: ONDANSETRON 4 MG/2 ML VIAL IVPUSH ONE (19:58)
[2017-06-04] MEDS ORDERED: SODIUM CHLORIDE 1,000 ML IV STA (19:58)
[2017-06-04] MEDS ORDERED: MAG HYDROX/AL HYDROX/SIMETH 30 ML UNIT-DOSE CUP PO ONE (19:59)
--- NOTE | 2017-06-04 20:04 | PDOC ---
History of Present Illness - General Chief Complaint: Chest Pain Stated Complaint: CHEST PAIN Time Seen by Provider: 06/04/17 19:43 History Source: Patient, Old Records Exam Limitations: No Limitations - History of Present Illness Travel History: No Initial Comments: 06/04/17 20:01 This is a 56-year-old woman with past medical history of vertigo, asthma, Zaldivar's esophagus, migraines, HIV positive (undetectable viral load and CD4- 1164) presents emergency Department with 1 day of epigastric pain radiating to her back. Patient states yesterday evening she was sitting on the couch watching television when she developed this sudden onset epigastric pain. Rates the pain 9/10 and describes as a "stuck feeling" or a pressure. Patient states the pain has not been relieved by any measures and has not gotten worse over the past day. Patient states she has occasional shortness of breath with deep breathing and has been belching. Patient states she tried to drink jaden wagner today believing the pain was a gas sensation which caused her to vomit. Patient states she's been unable to tolerate any food or fluids for the past 24 hours. She states occasionally she has become diaphoretic throughout this time. She denies any dizziness, headaches, sore throat, dysuria, hematuria, rectal bleeding, constipation or diarrhea. Past History - Past Medical History Allergies/Adverse Reactions: Allergies Allergy/AdvReac Type Severity Reaction Status Date / Time Iodinated Contrast- Oral and Allergy Severe Hives Verified 06/04/17 19:22 IV Dye [IV Dye, Iodine Containing Contrast ] levofloxacin [From Levaquin] Allergy Unknown Verified 06/04/17 19:22 prochlorperazine edisylate Allergy Unknown Itching Verified 06/04/17 19:22 [From Compazine] prochlorperazine maleate Allergy Unknown Itching Verified 06/04/17 19:22 [From Compazine] Sulfa (Sulfonamide Allergy Unknown Verified 06/04/17 19:22 Antibiotics) [Sulfa(Sulfonamide Antibiotics)] doxycycline AdvReac Severe Swelling Verified 06/04/17 19:22 famotidine [From Pepcid] AdvReac Intermediate Verified 06/04/17 19:22 Home Medications: Ambulatory Orders Efavirenz/Emtricitab/Tenofovir [Atripla Tablet] 1 each PO HS 07/24/13 Omeprazole [Prilosec] 40 mg PO DAILY 06/12/14 Diphenhydramine HCl [Benadryl -] 25 mg PO HS 09/29/16 Hydrocodone/Ibuprofen [Vicoprofen 7.5-200 mg Tablet] 1 each PO ASDIR 09/29/16 Loperamide HCl [Imodium -] 2 mg PO DAILY PRN #7 capsule 09/29/16 Ondansetron HCl [Zofran] 4 mg PO BID PRN #30 tablet 09/29/16 Azithromycin [Zithromax 1gm Fab -] 1 gm PO DAILY 02/27/17 Anemia: No Asthma: Yes Cancer: No Cardiac Disorders: No CVA: No COPD: No Dementia: No Diabetes: No GI Disorders: No Disorders: Yes (hx of kidney stones) HTN: No Hypercholesterolemia: Yes Liver Disease: No Seizures: No Thyroid Disease: Yes (nodule on ultrasound) Other medical history: vertigo, back problems - Surgical History Abdominal Surgery: No Appendectomy: No Cardiac Surgery: No Cholecystectomy: No Lung Surgery: No Neurologic Surgery: No Orthopedic Surgery: (Right rotator cuff sx,Carpel tunnel) - Immunization History Immunization Up to Date: Yes - Suicide/Smoking/Psychosocial Hx Smoking Status: Yes Smoking History: Current every day smoker Have you smoked in the past 12 months: Yes Number of Cigarettes Smoked Daily: 8 If you are a former smoker, when did you quit?: 3 weeks ago Information on smoking cessation initiated: No 'Breaking Loose' booklet given: 04/04/16 Hx Alcohol Use: No Drug/Substance Use Hx: No Substance Use Type: None Hx Substance Use Treatment: No Abd/GI Specific PMHX - Complaint Specific PMHX Colitis: No Diverticulitis: No Gall Bladder Disease: No Review of Systems - Review of Systems Able to Perform ROS?: Yes Is the patient limited Albanian proficient: No Constitutional: No: Symptoms Reported HEENTM: No: Symptoms Reported Respiratory: Yes: See HPI Cardiac (ROS): No: Symptoms Reported ABD/GI: Yes: See HPI : No: Symptoms Reported Musculoskeletal: Yes: See HPI Integumentary: Yes: See HPI Neurological: No: Symptoms reported Endocrine: No: Symptoms Reported Hematologic/Lymphatic: No: Symptoms Reported *Physical Exam - Vital Signs Last Vital Signs Temp Pulse Resp BP Pulse Ox 98.5 F 109 H 18 135/81 98 06/04/17 19:23 06/04/17 19:23 06/04/17 19:23 06/04/17 19:23 06/04/17 19:23 - Physical Exam General Appearance: Yes: Appropriately Dressed. No: Apparent Distress HEENT: positive: Normal ENT Inspection Neck: positive: Trachea midline, Supple Respiratory/Chest: positive: Lungs Clear, Normal Breath Sounds. negative: Respiratory Distress, Accessory Muscle Use Cardiovascular: positive: Regular Rhythm, S1, S2, Tachycardia. negative: Edema , Murmur Gastrointestinal/Abdominal: positive: Normal Bowel Sounds, Tender (RUQ. +wong' s sign.), Soft. negative: Organomegaly Musculoskeletal: positive: Normal Inspection. negative: CVA Tenderness Extremity: positive: Normal Inspection, Normal Range of Motion Integumentary: positive: Normal Color, Dry, Warm Neurologic: positive: Alert, Normal Response, Motor Strength /5 ED Treatment Course - LABORATORY CBC & Chemistry Diagram: 06/04/17 20:20 06/04/17 20:20 Medical Decision Making - Medical Decision Making 06/04/17 20:06 A/P: 56-year-old woman with epigastric pain for 1 day Lungs clear to auscultation bilaterally. Regular tachycardic rhythm. No murmur rub or gallop noted. Normoactive bowel sounds. Tenderness in the epigastrium and right upper quadrant. Positive Wong sign Remainder of abdomen is benign Labs with cardiac profile, lipase, chest x-ray, right upper quadrant ultrasound , EKG, Maalox, fluids, Zofran 06/04/17 20:44 Patient was offered Tylenol for pain which she has refused stating Tylenol does not work for me. Patient states she has taken her previous prescribed Vicoprofen with minimal relief of pain. Patient is requesting something stronger. I stop performed. Patient given a 30 day supply of Vicoprofen on 05/[address] Leonard Sanchez. This was discussed with the patient agrees to taken Tylenol now with reevaluation of pain afterwards. 06/04/17 22:34 Ultrasound read by imaging corrosion control technician: No gallstones, gallbladder wall thickening or pericholecystic fluid. Possible 3 mm gallbladder polyp. Normal common bile duct measuring 3.1 mm in diameter. Fatty liver. Normal size. No right hydronephrosis. No right upper quadrant free fluid. Laboratory testing is normal with the exception of an elevated alkaline phosphatase. This is likely due to patient's antiretroviral medications and is baseline for this patient. 06/04/17 23:32 Patient feels better after receiving pain medication and is requesting discharge at this time. Ultrasound results relate the patient who understands she needs reevaluation of the gallbladder polyp noted on this exam. Patient is to follow-up with the primary doctor within the next 1 week. Patient verbalizes understanding of discharge instructions. *DC/Admit/Observation/Transfer Diagnosis at time of Disposition: Abdominal pain Qualifiers: Abdominal location: epigastric Qualified Code(s): R10.13 - Epigastric pain - Discharge Dispostion Disposition: HOME Condition at time of disposition: Stable Admit: No - Referrals Referrals: Yandel Johnson MD [Primary Care Provider] - - Patient Instructions Additional Instructions: As discussed you have a 3 mm polyp noted in her gallbladder. You should have this followed up with your primary doctor. Laboratory testing including cardiac enzymes were all normal. Keep well-hydrated. Return to emergency department for any worsening pain, shortness of breath, chest pain, dizziness or any other concerns. - Post Discharge Activity
[2017-06-04] MEDS ORDERED: ONDANSETRON 4 MG/2 ML VIAL ONE (20:06)
[2017-06-04] MEDS ORDERED: MAG HYDROX/AL HYDROX/SIMETH 30 ML UNIT-DOSE CUP ONE (20:06)
[2017-06-04 20:29] LABS: BASO % 0.8 % (0-2.0); EOS % 3.1 % (0-4.5); HEMATOCRIT 40.8 % (32.4-45.2); HEMOGLOBIN 14.5 GM/dL (10.7-15.3); LYMPH % 32.6 % (8-40); MCH 32.7 pg (25.7-33.7); MCHC 35.7 g/dl (32.0-36.0); MEAN CELL VOLUME 91.6 fl (80-96); MEAN PLT VOLUME 8.3 fl (7.5-11.1); MONO % 7.2 % (3.8-10.2); NEUT % 56.3 % (42.8-82.8); PLATELET COUNT 211 K/MM3 (134-434); RBC 4.45 M/mm3 (3.60-5.2); RDW 12.7 % (11.6-15.6); WHITE BLOOD COUNT 8.7 K/mm3 (4.0-10.0)
[2017-06-04] MEDS ORDERED: ACETAMINOPHEN 1000 MG/100 ML VIAL (NON FORMULARY) IVPB ONE (20:29)
[2017-06-04] MEDS ORDERED: ACETAMINOPHEN INJECTION 100 ML IVPB ONE (20:31)
[2017-06-04 20:56] LABS: ALBUMIN 3.8 g/dl (3.4-5.0); ANION GAP 5 (8-16); BILIRUBIN,TOTAL 0.1 mg/dL (0.2-1.0); BLOOD UREA NITROGEN 12 mg/dL (7-18); CALCIUM 8.7 mg/dL (8.5-10.1); CHLORIDE 111 mmol/L (98-107); CO2 26 mmol/L (21-32); CREATININE 0.6 mg/dL (0.55-1.02); GLUCOSE,RANDOM 111 mg/dL (74-106); LIPASE 127 U/L (73-393); POTASSIUM 4.1 mmol/L (3.5-5.1); SGOT/AST 15 U/L (15-37); SGPT/ALT 27 U/L (12-78); SODIUM 142 mmol/L (136-145)
[2017-06-04] MEDS ORDERED: morphine CARPU-JECT 2 MG/1 ML DISP.SYRIN IVPUSH ONE (20:56)
[2017-06-04 20:57] LABS: ALK PHOS 170 U/L (45-117)
[2017-06-04] MEDS ORDERED: morphine SULFATE 4 MG/ML VIAL ONE ×2 (20:58→22:33)
[2017-06-04] MEDS ORDERED: morphine SULFATE 4 MG/ML VIAL IVPUSH ONE (22:27)
[2017-06-04 22:56] LABS: URINE APPEARANCE CLEAR; URINE BILIRUBIN NEGATIVE (<2.0 mg/dL); URINE BLOOD 1+ (NEGATIVE); URINE COLOR STRAW; URINE GLUCOSE (UA) NEGATIVE (NEGATIVE); URINE KETONE NEGATIVE (NEGATIVE); URINE LEUK ESTERASE NEGATIVE (NEGATIVE); URINE NITRITE NEGATIVE (NEGATIVE); URINE PROTEIN NEGATIVE (NEGATIVE); URINE UROBILINOGEN NEGATIVE mg/dL (0.2-1.0)
[2017-06-04 23:01] LABS: EPI CELLS RARE /HPF (FEW); URINE BACTERIA RARE /hpf (NONE SEEN); URINE MUCUS RARE
--- NOTE | 2017-06-05 12:21 | EKG ---
Test Reason : Blood Pressure : / mmHG Vent. Rate : 097 BPM Atrial Rate : 097 BPM P-R Int : 152 ms QRS Dur : 080 ms QT Int : 368 ms P-R-T Axes : 044 031 054 degrees QTc Int : 467 ms NORMAL SINUS RHYTHM NORMAL ECG WHEN COMPARED WITH ECG OF 29-SEP-2016 16:59, T WAVE AMPLITUDE HAS DECREASED IN ANTERIOR LEADS Confirmed by SHIVAM REYES MD ([id number]) on 06/05/2017 12:21:37 PM Referred By: Confirmed By:SHIVAM REYES MD
== END 2017-06-04 23:56 | disposition home or self-care (01) ==
LOC: JER 19:21
PROC: 3E033NZ Introduction of Analgesics, Hypnotics, Sedatives into Peripheral Vein, Percutaneous Approach (ICD-10-PCS; principal; 2017-06-04)
PROC: 3E033GC Introduction of Other Therapeutic Substance into Peripheral Vein, Percutaneous Approach (ICD-10-PCS; 2017-06-04)
DX: R07.89 Other chest pain (principal); J45.909 Unspecified asthma, uncomplicated; R42 Dizziness and giddiness; K22.70 Barrett's esophagus without dysplasia; Z21 Asymptomatic human immunodeficiency virus [HIV] infection status; Z87.442 Personal history of urinary calculi
CPT/HCPCS: 36415; 71046-TC-FY; 76705-TC; 80053; 81003; 81015; 82550; 83690; 83735; 84484; 85025; 93005; 93010; 96374; 96375; 96376; 99284-25; J7030

== ENCOUNTER 2017-08-28 12:19 | Emergency (ER) | payer OTHER ==
[2017-08-28 12:42] VITALS: TEMP 98.1; BMI 31.4
--- NOTE | 2017-08-28 13:02 | PDOC ---
History of Present Illness - General Chief Complaint: Pain, Acute Stated Complaint: GENITAL PAIN Time Seen by Provider: 08/28/17 13:02 History Source: Patient Exam Limitations: No Limitations - History of Present Illness Initial Comments: The patient is a 56F with a PMH of HIV (1160), vertigo, and asthma who presents with 1 day of worsening LLQ pain. She endorses mild nausea and BRBPR 2 days ago x1 but has since not had any blood in her stool. She tried taking ibuprofen and Vicoprofen with little relief. She denies previous episodes of this pain, hematuria, vaginal discharge, dysuria, new sexual partners or unprotected sex. She denies emesis, diarrhea, constipation. States she had a colonoscopy 3 years ago significant for polyps and internal hemorrhoids and is seen by Dr. Chace Banks for GI. Her Vicoprofen is prescribed to her by her pain management doctor, Dr. Moon. 08/28/17 13:38 Timing/Duration: other (1day of worsening) Severity: severe Associated Symptoms: reports: denies symptoms Past History - Past Medical History Allergies/Adverse Reactions: Allergies Allergy/AdvReac Type Severity Reaction Status Date / Time Iodinated Contrast- Oral and Allergy Severe Hives Verified 08/28/17 14:47 IV Dye [IV Dye, Iodine Containing Contrast ] levofloxacin [From Levaquin] Allergy Unknown Verified 08/28/17 14:47 prochlorperazine edisylate Allergy Unknown Itching Verified 08/28/17 14:47 [From Compazine] prochlorperazine maleate Allergy Unknown Itching Verified 08/28/17 14:47 [From Compazine] Sulfa (Sulfonamide Allergy Unknown Verified 08/28/17 14:47 Antibiotics) [Sulfa(Sulfonamide Antibiotics)] doxycycline AdvReac Severe Swelling Verified 08/28/17 14:47 famotidine [From Pepcid] AdvReac Intermediate Verified 08/28/17 14:47 Home Medications: Ambulatory Orders Efavirenz/Emtricitab/Tenofovir [Atripla Tablet] 1 each PO HS 09/12/12 Omeprazole [Prilosec] 40 mg PO DAILY 06/12/14 Hydrocodone/Ibuprofen [Vicoprofen 7.5-200 mg Tablet] 1 each PO ASDIR 09/29/16 Acetaminophen [Tylenol Extra Strength] 500 mg PO QID PRN 7 Days #56 tablet 08/28 Lidocaine 5% Patch [Lidoderm Patch -] 1 patch TP DAILY #7 patch 08/28/17 Anemia: No Asthma: Yes Cancer: No Cardiac Disorders: No CVA: No COPD: No DVT: No Dementia: No Diabetes: No GI Disorders: No Disorders: Yes (hx of kidney stones) HTN: No Hypercholesterolemia: Yes HIV: Yes Liver Disease: No Seizures: No Thyroid Disease: Yes (nodule on ultrasound) Other medical history: chronic back pian - Surgical History Abdominal Surgery: No Appendectomy: No Cardiac Surgery: No Cholecystectomy: No Lung Surgery: No Neurologic Surgery: No Orthopedic Surgery: (Right rotator cuff sx,Carpel tunnel) - Immunization History Immunization Up to Date: Yes - Suicide/Smoking/Psychosocial Hx Smoking Status: Yes Smoking History: Current every day smoker Have you smoked in the past 12 months: Yes Number of Cigarettes Smoked Daily: 8 If you are a former smoker, when did you quit?: 3 weeks ago Information on smoking cessation initiated: Yes 'Breaking Loose' booklet given: 04/04/16 Hx Alcohol Use: No Drug/Substance Use Hx: No Substance Use Type: None Hx Substance Use Treatment: No Review of Systems - Review of Systems Able to Perform ROS?: Yes Is the patient limited Namibian proficient: Yes Constitutional: No: Chills, Fever HEENTM: No: Blurred Vision, Nose Congestion, Throat Pain Respiratory: No: Cough, Shortness of Breath Cardiac (ROS): No: Chest Pain, Palpitations, Syncope ABD/GI: Yes: See HPI : Yes: Flank Pain. No: Burning, Dysuria, Discharge, Frequency, Hematuria, Incontinence, Pain, Urgency Musculoskeletal: Yes: Back Pain (pain radiates to back). No: Joint Pain, Muscle Pain, Muscle Weakness Integumentary: No: Pruritus, Rash Neurological: No: Headache, Weakness, Unsteady Gait Psychiatric: No: Anxiety, Depression Endocrine: No: Intolerance to Cold, Intolerance to Heat Hematologic/Lymphatic: No: Easy Bleeding, Easy Bruising *Physical Exam - Vital Signs Last Vital Signs Temp Pulse Resp BP Pulse Ox 98.1 F 102 H 20 140/84 99 08/28/17 12:33 08/28/17 12:33 08/28/17 12:33 08/28/17 12:33 08/28/17 12:33 - Physical Exam General Appearance: Yes: Mild Distress, Obese. No: Intoxicated HEENT: positive: EOMI, TYLER, Normal ENT Inspection, Normal Voice. negative: Nasal Congestion, Rhinorrhea Neck: positive: Trachea midline, Supple. negative: Lymphadenopathy (R), Lymphadenopathy (L) Respiratory/Chest: positive: Lungs Clear, Normal Breath Sounds Cardiovascular: positive: Regular Rhythm, Regular Rate, S1, S2. negative: Murmur Vascular Pulses: Femoral (R): 2+, Femoral (L): 2+, Carotid (R): 2+, Carotid (L) : 2+, Dorsalis-Pedis (R): 2+, Doralis-Pedis (L): 2+ Gastrointestinal/Abdominal: positive: Normal Bowel Sounds, Tender (Exquisit tenderness to palpation in the LLQ/L inguinal area), Soft, Protuberent. negative: Rebound Rectal Exam: positive: normal rectal tone, hemorrhoids (internal), other (no fissure) Musculoskeletal: positive: Normal Inspection, Other (L buttock TTP near PSIS). negative: CVA Tenderness Extremity: positive: Normal Capillary Refill, Normal Range of Motion. negative : Cyanosis Integumentary: positive: Normal Color, Warm. negative: Rash Neurologic: positive: tower helper II-XII NML intact, Fully Oriented, Alert, Normal Mood/ Affect, Normal Response, Motor Strength 5/5 Procedures - Bedside Ultrasound Other: Limited POCUS renal study Remarks: Limited POCUS renal study: indication for abdominal /flank pain, views obtained include bilateral kidneys and bladder in TV and sagittal; findings: no hydronephrosis, no FF in pelvis. impression: normal renal system, no hydronephrosis. 08/28/17 14:58 ED Treatment Course - LABORATORY CBC & Chemistry Diagram: 08/28/17 14:28 08/28/17 14:28 Medical Decision Making - Medical Decision Making The patient is a 56F with a history of HIV (1164), hemorrhoids, and colonic polyps who presents with 1 day of worsening LLQ Abdominal Pain DDx: Diverticulosis, Diverticulitis, Nephrolithiasis, Ovarian cyst, Hemorrhoids , Anal fissure; doubt STI, uterine fibroid ED Course: CBC, BMP, UA CT A&P w/o contrast Plan: LLQ Abdominal Pain -CT A&P w/o contrast (2/2 IV contrast allergy) -Limited POCUS renal study: --Indication for abdominal /flank pain, views obtained include bilateral kidneys and bladder in TV and sagittal; findings: no hydronephrosis, no FF in pelvis. impression: normal renal system, no hydronephrosis -1L NS -Ofirmev 1000mg IV Once -Morphine 4mg IV Twice -Toradol 30mg IV Once Nausea -Zofran 4mg IV Once BRBPR -FOBT --No blood on exam Glove --Negative 08/28/17 14:45 CT A&P w/o contrast significant for colonic diverticulosis without diverticulitis. Additionally, it was significant for a stable splenic artery aneurysm. Dispo: The patient's pain improved after two doses of morphine and application of a lidoderm patch. BMP, CBC, and UA without WNL. She was determined to be appropriate for discharge. It was discussed that the patient should maintain follow up with her OBGYN next Monday, and GI appointment on 09/05/2017. She should also follow up with her PCP within the next 1-3 days. Additionally, she was prescribed Tylenol and lidoderm patches in addition to her home pain regimen prescribed by her pain doctor, Dr. Crockett. ED return precautions were discussed. The patient verbalized understanding. 08/28/17 18:09 *DC/Admit/Observation/Transfer Diagnosis at time of Disposition: Abdominal pain Qualifiers: Abdominal location: left lower quadrant Qualified Code(s): R10.32 - Left lower quadrant pain - Discharge Dispostion Disposition: HOME Condition at time of disposition: Stable Decision to Admit order: No - Prescriptions Prescriptions: Acetaminophen [Tylenol Extra Strength] 500 mg PO QID PRN 7 Days #56 tablet PRN Reason: Pain Lidocaine 5% Patch [Lidoderm Patch -] 1 patch TP DAILY #7 patch - Referrals Referrals: Yandel Johnson MD [Primary Care Provider] - - Patient Instructions Printed Discharge Instructions: DI for Abdominal Pain-Adult, DI for Rectal Bleeding Additional Instructions: You were seen in the Emergency Department today for left lower abdominal pain. You underwent a CT scan of the abdomen that was significant for colonic diverticulosis without diverticulitis and given the report of the CT scan. Please take this report with you to your OBGYN, GI, and PCP appointments. Also Lidoderm patches and Tylenol were sent to your pharmacy. Apply one patch for 12 hours, remove, and do not place another for at least 12 hours after removing the previous patch. You can take the Tylenol up to 1000mg every 6 hours. Please keep your follow up GI, OBGYN, and PCP. Return to the Emergency Department if you have fever, worsening pain, blood in your stool, vaginal discharge, vaginal bleeding, or blood in your urine. - Post Discharge Activity
[2017-08-28] MEDS ORDERED: ACETAMINOPHEN 1000 MG/100 ML VIAL (NON FORMULARY) IVPB ONE (13:39)
[2017-08-28] MEDS ORDERED: LIDOCAINE 5% TOPICAL PATCH TP ONE (14:31)
[2017-08-28] MEDS ORDERED: morphine CARPU-JECT 4 MG/1 ML DISP.SYRIN IVPUSH ONE ×2 (14:31→16:37)
[2017-08-28] MEDS ORDERED: ONDANSETRON 4 MG/2 ML VIAL IVPUSH ONE (14:31)
[2017-08-28] MEDS ORDERED: KETOROLAC TROMETHAMINE 30 MG/1 ML VIAL IVPUSH ONE (14:38)
--- NOTE | 2017-08-28 14:38 | PDOC ---
Attending Attestation - HPI HPI: 08/28/17 14:41 The patient is a 56 year old female, with a significant past medical history of vertigo, asthma, Zaldivar's esophagus, migraines, HIV positive (undetectable viral load and CD4-1164) , who presents to the emergency department with one day of progressive left lower abdominal pain. She reports noticing bright red blood per rectum abput 2 days ago but denies blood in her stool since. She reportedly tried taking ibuprofen and Vicoprofen with little relief. She states she took Motrin 800mg this morning with no relief. She denies previous episodes of this pain, hematuria, vaginal discharge, dysuria. States she had a colonoscopy 3 years ago significant for polyps and internal hemorrhoids and is seen by Dr. Chace Banks for GI. The patient denies chest pain, shortness of breath, headache and dizziness. The patient denies fever, chills, nausea, vomit, diarrhea and constipation. The patient denies dysuria, frequency, urgency and hematuria. Allergies: doxycyline, IV Contrast, ""antinausea"" - Physicial Exam PE: 08/28/17 14:41 General: Well appearing, awake and alert, mild distress 2/2 pain HEENT: PERRL, EOMI, anicteric, normal conjunctiva, moist mucus membranes Neck: neck supple, FROM Lungs: CTAB, normal and even respirations, no respiratory distress Heart: RRR, no murmurs, 2+ peripheral pulses throughout, no peripheral edema Abdomen: soft, obese, +LLQ tenderness, no peritoneal signs. No CVAT Back: nontender, normal inspection and ROM, +palp left buttock tenderness MSK: no edema, BRIZUELA x4, ROM intact. No clubbing or cyanosis. normal bulk and tone. Neuro: alert, oriented appropriately; no focal neurologic deficits. Skin: warm and well perfused, cap refill <2 sec, normal color; no rash Rectal: Supervised by me, performed by Dr. Jonathon Verde, reveals no blood in rectal vault. No external or internal hemorrhoids. - Medical Decision Making 08/28/17 14:42 Documentation prepared by Annabella Crook, acting as medical care administrator for Misa Stewart MD <Annabella Crook - Last Filed: 08/28/17 15:04> - Resident Resident Name: Jonathon Verde - Medical Decision Making 08/28/17 14:32 56 YOF with h/o back pain presenting with LLQ pain radiating to left flank since yesterday. +bloody bowel movement with blood tinging toilet bowel ~2 days ago. no f/c, urinary sx, vomiting or diarrhea. last colonoscopy 3 years ago, +colonic polyps and hemorrhoids. Vital signs reviewed, wnl. mild tachy 2/2 pain. DDx. diverticulitis, diverticular bleed. colitis, renal colic/ureterolithiasis, UTI, pyelonephritis, doubt ovarian torsion or cysts/pelvic pathology - there is no VB or vaginal discharge or deep pelvic pain, no dysuria or hematuria. will perform CT a/p, if abnormalities noted, consider TVUS. Limited POCUS renal study: indication for abdominal /flank pain, views obtained include bilateral kidneys and bladder in TV and sagittal; findings: no hydronephrosis, no FF in pelvis. impression: normal renal system, no hydronephrosis. labs_ wnl, normal UA neg for infection or blood interventions: IVF, morphine, toradol, lidoderm patch. CT a/p to r/o diverticulitis and intra abdominal pathology. renal US neg for hydro, so lower likelihood of renal colic or obstructed stone. s/o pending CT results, no narcotics, has been stable and well appearing and comfortable. ambulatory, pain controlled; sees outpatient pain specialist, so told to f/u pain contract. topical lidoderm patch for her back. 08/28/17 14:39 08/28/17 17:16 <Misa Stewart - Last Filed: 08/28/17 17:18>
[2017-08-28 14:41] LABS: HEMATOCRIT 42.4 % (32.4-45.2); HEMOGLOBIN 14.5 GM/dL (10.7-15.3); MCHC 34.2 g/dl (32.0-36.0); MEAN CELL VOLUME 90.8 fl (80-96); MEAN PLT VOLUME 8.8 fl (7.5-11.1); PLATELET COUNT 230 K/MM3 (134-434); RBC 4.67 M/mm3 (3.60-5.2); RDW 13.1 % (11.6-15.6)
[2017-08-28] MEDS ORDERED: LIDOCAINE 5% TOPICAL PATCH ONE (14:50)
[2017-08-28] MEDS ORDERED: ACETAMINOPHEN INJECTION 100 ML IVPB ONE (14:50)
[2017-08-28] MEDS ORDERED: morphine SULFATE 4 MG/ML VIAL ONE (14:50)
[2017-08-28] MEDS ORDERED: KETOROLAC TROMETHAMINE 30 MG/1 ML VIAL ONE (14:51)
[2017-08-28] MEDS ORDERED: ONDANSETRON 4 MG/2 ML VIAL ONE (14:51)
[2017-08-28 14:52] LABS: URINE APPEARANCE CLEAR; URINE BILIRUBIN NEGATIVE (<2.0 mg/dL); URINE COLOR YELLOW; URINE GLUCOSE (UA) NEGATIVE (NEGATIVE); URINE KETONE NEGATIVE (NEGATIVE); URINE LEUK ESTERASE NEGATIVE (NEGATIVE); URINE NITRITE NEGATIVE (NEGATIVE); URINE PROTEIN NEGATIVE (NEGATIVE); URINE UROBILINOGEN NEGATIVE mg/dL (0.2-1.0)
[2017-08-28] MEDS ORDERED: SODIUM CHLORIDE 0.9% 500 ML INFUS.BAG IV ONE (14:57)
[2017-08-28 15:00] LABS: ANION GAP 7 (8-16); BLOOD UREA NITROGEN 14 mg/dL (7-18); CALCIUM 9.3 mg/dL (8.5-10.1); CHLORIDE 110 mmol/L (98-107); CO2 25 mmol/L (21-32); CREATININE 0.6 mg/dL (0.55-1.02); GLUCOSE,RANDOM 108 mg/dL (74-106); POTASSIUM 4.8 mmol/L (3.5-5.1); SODIUM 142 mmol/L (136-145)
[2017-08-28] MEDS ORDERED: KETOROLAC TROMETHAMINE 60 MG/2 ML VIAL ONE (16:19)
[2017-08-28] MEDS ORDERED: MORPHINE SULFATE 2 MG/ML VIAL ONE (16:49)
[2017-08-28 18:37] VITALS: BP 141/81; PULSE 79
[2017-08-28] MEDS ORDERED: LIDOCAINE PATCH REMOVAL MC SCH (22:00)
== END 2017-08-28 18:37 | disposition home or self-care (01) ==
LOC: JER 12:19
PROC: 3E033NZ Introduction of Analgesics, Hypnotics, Sedatives into Peripheral Vein, Percutaneous Approach (ICD-10-PCS; principal; 2017-08-28)
PROC: 3E0337Z Introduction of Electrolytic and Water Balance Substance into Peripheral Vein, Percutaneous Approach (ICD-10-PCS; 2017-08-28)
PROC: 3E033GC Introduction of Other Therapeutic Substance into Peripheral Vein, Percutaneous Approach (ICD-10-PCS; 2017-08-28)
PROC: 3E0333Z Introduction of Anti-inflammatory into Peripheral Vein, Percutaneous Approach (ICD-10-PCS; 2017-08-28)
DX: R10.32 Left lower quadrant pain (principal); K57.90 Diverticulosis of intestine, part unspecified, without perforation or abscess without bleeding; Z21 Asymptomatic human immunodeficiency virus [HIV] infection status; R42 Dizziness and giddiness; J45.909 Unspecified asthma, uncomplicated; G43.909 Migraine, unspecified, not intractable, without status migrainosus; Z88.8 Allergy status to other drugs, medicaments and biological substances
CPT/HCPCS: 36415; 74176-TC; 80048; 81003; 82272; 85027; 87086; 96374; 96375; 99283-25; J0131

== ENCOUNTER 2017-09-07 06:41 | Day surgery (SDC) | payer OTHER ==
[2017-09-06 13:48] VITALS: BMI 31.1
[2017-09-07] MEDS ORDERED: PROPOFOL 20 ML ONE (08:21)
[2017-09-07] MEDS ORDERED: LIDOCAINE HCL/PF 2% SDV 5ML VIAL ONE (08:21)
[2017-09-07 16:06] VITALS: BP 131/75; PULSE 62; TEMP 98
--- NOTE | 2017-09-08 18:45 | PATH ---
Surgical Pathology Report Patient Name: CHRISTIN REYEZ [facility]. Rec. #: [id number] /Age/Gender: 1960 (Age: 56) / F Account: [id number] Location: [facility] Taken: 09/07/2017 Received: 09/07/2017 Reported: 09/08/2017 Physicians: Chace Llamas M.D. Specimen(s) Received A: BX ANTRUM EROSION B: BX BODY C: BX GE JUNCTION Clinical History Epigastric pain Postoperative diagnosis: Irregular Z line, antrum erosion Final Diagnosis A. ANTRUM EROSION, BIOPSY: GASTRIC MUCOSA WITH ACTIVE CHRONIC GASTRITIS. IMMUNOSTAIN IS NEGATIVE FOR H. PYLORI ORGANISMS. B. BODY, BIOPSY: GASTRIC MUCOSA WITH MILD CHRONIC INFLAMMATION. IMMUNOSTAIN IS NEGATIVE FOR H. PYLORI ORGANISMS. C. GE JUNCTION, BIOPSY: GASTROESOPHAGEAL JUNCTIONAL MUCOSA WITH CHANGES CONSISTENT WITH REFLUX ESOPHAGITIS. Electronically Signed Shorty Riley M.D. Gross Description A. Received in formalin, labeled "biopsy antrum erosion" are 2 singer, irregular portions of soft tissue measuring 0.2 and 0.6 cm. in greatest dimension. The specimens are submitted in toto in one cassette. B. Received in formalin, labeled "biopsy body of stomach" are 3 singer, irregular portions of soft tissue ranging from 0.1-0.2 cm. in greatest dimension. The specimens are submitted in toto in one cassette. C. Received in formalin, labeled "biopsy GE junction" is a singer, irregular portion of soft tissue measuring 0.4 cm. in greatest dimension. The specimen is submitted in toto in one cassette. /09/07/2017 [facility]09/07/2017
== END 2017-09-07 09:55 | disposition home or self-care (01) ==
LOC: JASU-ENDO 06:41
PROVIDERS: ATTEND Internal Medicine Gastroenterology
PROC: 0DB68ZX Excision of Stomach, Via Natural or Artificial Opening Endoscopic, Diagnostic (ICD-10-PCS; 2017-09-07)
PROC: 0DB38ZX Excision of Lower Esophagus, Via Natural or Artificial Opening Endoscopic, Diagnostic (ICD-10-PCS; principal; 2017-09-07 08:00)
DX: K29.50 Unspecified chronic gastritis without bleeding (principal); K21.0 Gastro-esophageal reflux disease with esophagitis; Z21 Asymptomatic human immunodeficiency virus [HIV] infection status; E78.5 Hyperlipidemia, unspecified
CPT/HCPCS: 88305-TC; 88342-TC

== ENCOUNTER 2017-12-27 21:46 | Emergency (ER) | payer OTHER ==
[2017-12-27 21:56] VITALS: BMI 31.4
--- NOTE | 2017-12-27 23:40 | PDOC ---
History of Present Illness - History of Present Illness Initial Comments: This patient is a 57 year old female with PMHx of HIV (with CD4 count in 1000s and undetectable viral load), Asthma, Hypertension, Hyperlipidemia, Smoker, Renal colic, vertigo, chronic back pain who presents with left sided abdominal pain since this morning. Patient reports LLQ pain since this morning. She states that she called her GI doc who referred her here. She reports a similar pain and was dx with diverticulitis. She states that this pain feels worse. She also reports hard stools and constipation. She states that she took 2 Miralax and drank prune juice but it did not relieve her constipation. Patient reports associated nausea and vomiting. She states that her normal back pain medication did not help to relieve her pain. Denies passing gas but has been burping. Denies hematuria or dysuria. PCP- Dr. Zaheer Pope Surgical history: Tubal ligation, R Rotator cuff, Carpal Tunnel. Allergies: Please see nursing notes <Alva Mariee - Last Filed: 12/28/17 01:29> <Godwin Watts - Last Filed: 12/28/17 04:45> <Niraj Robb - Last Filed: 12/30/17 16:38> - General Chief Complaint: Pain Stated Complaint: PAIN, ACUTE Time Seen by Provider: 12/27/17 23:06 Past History <Alva Mariee - Last Filed: 12/28/17 01:29> <Godwin Watts - Last Filed: 12/28/17 04:45> - Past Medical History Anemia: No Asthma: Yes (NO RECENT ATTACK) Cancer: Yes (H/O UTERINE CANCER) Cardiac Disorders: No CVA: No COPD: No DVT: No Dementia: No Diabetes: No GI Disorders: Yes (GERD,COLONIC POLYP) Disorders: Yes (hx of kidney stones) HTN: No Hypercholesterolemia: Yes Liver Disease: Yes (FATTY LIVER) Seizures: No Thyroid Disease: Yes (nodule on ultrasound) - Surgical History Abdominal Surgery: No Appendectomy: No Cardiac Surgery: No Cholecystectomy: No Lung Surgery: No Neurologic Surgery: No Orthopedic Surgery: (Right rotator cuff sx,Carpel tunnel) - Immunization History Immunization Up to Date: Yes - Suicide/Smoking/Psychosocial Hx Smoking Status: Yes Smoking History: Current every day smoker Have you smoked in the past 12 months: Yes Number of Cigarettes Smoked Daily: 8 If you are a former smoker, when did you quit?: 3 weeks ago Information on smoking cessation initiated: No 'Breaking Loose' booklet given: 09/07/17 Hx Alcohol Use: No Drug/Substance Use Hx: No Substance Use Type: None Hx Substance Use Treatment: No <Niraj Robb - Last Filed: 12/30/17 16:38> - Past Medical History Allergies/Adverse Reactions: Allergies Allergy/AdvReac Type Severity Reaction Status Date / Time Iodinated Contrast- Oral and Allergy Severe Hives Verified 12/27/17 21:55 IV Dye [IV Dye, Iodine Containing Contrast ] levofloxacin [From Levaquin] Allergy Unknown Verified 12/27/17 21:55 prochlorperazine edisylate Allergy Unknown Itching Verified 12/27/17 21:55 [From Compazine] prochlorperazine maleate Allergy Unknown Itching Verified 12/27/17 21:55 [From Compazine] Sulfa (Sulfonamide Allergy Unknown Verified 12/27/17 21:55 Antibiotics) [Sulfa(Sulfonamide Antibiotics)] doxycycline AdvReac Severe Swelling Verified 12/27/17 21:55 famotidine [From Pepcid] AdvReac Intermediate Verified 12/27/17 21:55 Home Medications: Ambulatory Orders Efavirenz/Emtricitab/Tenofovir [Atripla Tablet] 1 each PO HS 09/12/12 Omeprazole [Prilosec] 40 mg PO DAILY 06/12/14 Hydrocodone/Ibuprofen [Vicoprofen 7.5-200 mg Tablet] 1 each PO ASDIR 09/29/16 Diphenhydramine HCl [Benadryl Capsule -] 25 mg PO DAILY 09/06/17 Cephalexin Monohydrate [Keflex -] 500 mg PO BID #20 capsule 12/29/17 Abd/GI Specific PMHX - Complaint Specific PMHX Colitis: No Diverticulitis: No Gall Bladder Disease: No <Niraj Robb - Last Filed: 12/30/17 16:38> Review of Systems - Review of Systems Comments:: CONSTITUTIONAL: No fever, no chills, no fatigue EYES: No visual changes ENT: No ear pain, no sore throat CARDIOVASCULAR: No chest pain, no palpitations RESPIRATORY: No cough, no SOB GI: LLQ pain +left flank pain, +nausea, +vomiting, +constipation, no diarrhea GENITOURINARY: No dysuria, no frequency, no hematuria MUSKULOSKELETAL: No new back pain, no joint pain, no myalgias SKIN: No rash NEURO: No headache <Alva Mariee - Last Filed: 12/28/17 01:29> *Physical Exam - Vital Signs Last Vital Signs Temp Pulse Resp BP Pulse Ox 98.3 F 111 H 18 107/76 99 12/27/17 21:53 12/27/17 21:53 12/27/17 21:53 12/27/17 21:53 12/27/17 21:53 - Physical Exam Comments: CONSTITUTIONAL: Well-appearing; well-nourished; in no apparent distress HEAD: Normocephalic; atraumatic CARD: Normal S1, S2; no murmurs, rubs, or gallops RESP: Normal chest excursion with respiration; breath sounds clear and equal bilaterally; no wheezes, rhonchi, or rales ABD: Soft, non-distended; LLQ, mild left CVA tenderness; no palpable organomegaly, no palpable hernias EXT: Normal ROM in all four extremities; non-tender to palpation; distal pulses intact SKIN: Warm, dry, no rash NEURO: No focal neurological deficiencies. <Alva Mariee - Last Filed: 12/28/17 01:29> - Vital Signs Last Vital Signs Temp Pulse Resp BP Pulse Ox 98.3 F 111 H 18 107/76 99 12/27/17 21:53 12/27/17 21:53 12/27/17 21:53 12/27/17 21:53 12/27/17 21:53 <Godwin Watts - Last Filed: 12/28/17 04:45> - Vital Signs Last Vital Signs Temp Pulse Resp BP Pulse Ox 98.3 F 111 H 18 107/76 99 12/27/17 21:53 12/27/17 21:53 12/27/17 21:53 12/27/17 21:53 12/27/17 21:53 <Niarj Robb - Last Filed: 12/30/17 16:38> ED Treatment Course - LABORATORY CBC & Chemistry Diagram: 12/28/17 00:12 12/28/17 00:12 - ADDITIONAL ORDERS Additional order review: Laboratory Results 12/28/17 12/28/17 12/27/17 00:12 00:12 23:43 PT with INR 11.90 INR 1.01 Sodium 143 Potassium 4.7 Chloride 107 Carbon Dioxide 27 Anion Gap 9 BUN 13 Creatinine 0.8 Creat Clearance w eGFR > 60 Random Glucose 108 H Calcium 9.5 Total Bilirubin 0.4 AST 22 ALT 37 Alkaline Phosphatase 185 H Total Protein 7.5 Albumin 4.2 Lipase 185 Urine Color Yellow Urine Appearance Clear Urine pH 5.0 Ur Specific [place] 1.018 Urine Protein Negative Urine Glucose (UA) Negative Urine Ketones Negative Urine Blood Negative Urine Nitrite Negative Urine Bilirubin Negative Urine Urobilinogen Negative Ur Leukocyte Esterase Negative 12/28/17 00:12 RBC 4.83 MCV 91.5 MCHC 34.7 RDW 13.1 MPV 7.9 D Neutrophils % 50.6 Lymphocytes % 39.9 D Monocytes % 6.2 Eosinophils % 3.0 Basophils % 0.3 - Medications Given in the ED: ED Medications Discontinued Medications Generic Name Dose Route Start Last Admin Trade Name Gerald PRN Reason Stop Dose Admin Morphine Sulfate 4 mg 12/27/17 23:49 12/28/17 00:17 Morphine Sulfate IVPUSH 12/27/17 23:50 4 mg ONCE ONE Administration <Alva Mariee - Last Filed: 12/28/17 01:29> - LABORATORY CBC & Chemistry Diagram: 12/28/17 00:12 12/28/17 00:12 - ADDITIONAL ORDERS Additional order review: Laboratory Results 12/28/17 12/28/17 12/28/17 00:32 00:12 00:12 PT with INR 11.90 INR 1.01 Sodium 143 Potassium 4.7 Chloride 107 Carbon Dioxide 27 Anion Gap 9 BUN 13 Creatinine 0.8 Creat Clearance w eGFR > 60 Random Glucose 108 H Calcium 9.5 Total Bilirubin 0.4 AST 22 ALT 37 Alkaline Phosphatase 185 H Total Protein 7.5 Albumin 4.2 Lipase 185 Urine Color Urine Appearance Urine pH Ur Specific [place] Urine Protein Urine Glucose (UA) Urine Ketones Urine Blood Urine Nitrite Urine Bilirubin Urine Urobilinogen Ur Leukocyte Esterase Blood Type O POSITIVE Antibody Screen Negative 12/27/17 23:43 PT with INR INR Sodium Potassium Chloride Carbon Dioxide Anion Gap BUN Creatinine Creat Clearance w eGFR Random Glucose Calcium Total Bilirubin AST ALT Alkaline Phosphatase Total Protein Albumin Lipase Urine Color Yellow Urine Appearance Clear Urine pH 5.0 Ur Specific [place] 1.018 Urine Protein Negative Urine Glucose (UA) Negative Urine Ketones Negative Urine Blood Negative Urine Nitrite Negative Urine Bilirubin Negative Urine Urobilinogen Negative Ur Leukocyte Esterase Negative Blood Type Antibody Screen 12/28/17 00:12 RBC 4.83 MCV 91.5 MCHC 34.7 RDW 13.1 MPV 7.9 D Neutrophils % 50.6 Lymphocytes % 39.9 D Monocytes % 6.2 Eosinophils % 3.0 Basophils % 0.3 - Medications Given in the ED: ED Medications Discontinued Medications Generic Name Dose Route Start Last Admin Trade Name Guilleq PRN Reason Stop Dose Admin Al Hydroxide/Mg Hydroxide 30 ml 12/28/17 04:05 12/28/17 04:13 Mylanta Suspension - PO 12/28/17 04:06 30 ml ONCE ONE Administration Sodium Chloride 1,000 mls @ 1,000 mls/hr 12/28/17 00:26 12/28/17 00:33 Normal Saline - IV 12/28/17 01:25 1,000 mls/hr ASDIR STA Administration Morphine Sulfate 4 mg 12/27/17 23:49 12/28/17 00:17 Morphine Sulfate IVPUSH 12/27/17 23:50 4 mg ONCE ONE Administration Morphine Sulfate 4 mg 12/28/17 01:32 12/28/17 01:50 Morphine Sulfate IVPUSH 12/28/17 01:33 4 mg ONCE ONE Administration Morphine Sulfate 2 mg 12/28/17 04:05 12/28/17 04:12 Morphine Sulfate IVPUSH 12/28/17 04:06 2 mg ONCE ONE Administration <Godwin Watts - Last Filed: 12/28/17 04:45> - LABORATORY CBC & Chemistry Diagram: 12/28/17 00:12 12/28/17 00:12 <Niraj Robb - Last Filed: 12/30/17 16:38> *DC/Admit/Observation/Transfer - Attestations Scribe Attestion: 12/28/17 01:31 Documentation prepared by Alva Mariee, acting as medical equipment technician for Niraj Robb MD. <Alva Mariee - Last Filed: 12/28/17 01:29> <Godwin Watts - Last Filed: 12/28/17 04:45> <Niraj Robb - Last Filed: 12/30/17 16:38> Diagnosis at time of Disposition: Diverticulosis - Discharge Dispostion Disposition: HOME Condition at time of disposition: Stable - Prescriptions Prescriptions: Cephalexin Monohydrate [Keflex -] 500 mg PO BID #20 capsule - Referrals Referrals: Yandel Johnson MD [Primary Care Provider] - - Patient Instructions - Post Discharge Activity
[2017-12-27] MEDS ORDERED: morphine SULFATE 4 MG/ML VIAL IVPUSH ONE (23:49)
[2017-12-27 23:50] LABS: URINE APPEARANCE CLEAR; URINE BILIRUBIN NEGATIVE (<2.0 mg/dL); URINE COLOR YELLOW; URINE GLUCOSE (UA) NEGATIVE (NEGATIVE); URINE KETONE NEGATIVE (NEGATIVE); URINE LEUK ESTERASE NEGATIVE (NEGATIVE); URINE NITRITE NEGATIVE (NEGATIVE); URINE PROTEIN NEGATIVE (NEGATIVE); URINE UROBILINOGEN NEGATIVE mg/dL (0.2-1.0)
[2017-12-28] MEDS ORDERED: morphine SULFATE 4 MG/ML VIAL ONE ×2 (00:15→01:48)
[2017-12-28 00:23] LABS: BASO % 0.3 % (0-2.0); HEMATOCRIT 44.2 % (32.4-45.2); HEMOGLOBIN 15.3 GM/dL (10.7-15.3); LYMPH % 39.9 % (8-40); MCH 31.7 pg (25.7-33.7); MCHC 34.7 g/dl (32.0-36.0); MEAN CELL VOLUME 91.5 fl (80-96); MEAN PLT VOLUME 7.9 fl (7.5-11.1); MONO % 6.2 % (3.8-10.2); NEUT % 50.6 % (42.8-82.8); PLATELET COUNT 238 K/MM3 (134-434); RBC 4.83 M/mm3 (3.60-5.2); RDW 13.1 % (11.6-15.6); WHITE BLOOD COUNT 10.4 K/mm3 (4.0-10.0)
[2017-12-28] MEDS ORDERED: SODIUM CHLORIDE 1,000 ML IV STA (00:26)
[2017-12-28 00:39] LABS: INR 1.01 (0.83-1.09); PROTHROMBIN TIME (PATIENT) 11.9 SEC (9.7-13.0)
[2017-12-28 01:05] LABS: ALBUMIN 4.2 g/dl (3.4-5.0); ALK PHOS 185 U/L (45-117); ANION GAP 9 MMOL/L (8-16); BILIRUBIN,TOTAL 0.4 mg/dL (0.2-1); BLOOD UREA NITROGEN 13 mg/dL (7-18); CALCIUM 9.5 mg/dL (8.5-10.1); CHLORIDE 107 mmol/L (98-107); CO2 27 mmol/L (21-32); CREATININE 0.8 mg/dL (0.55-1.3); GLUCOSE,RANDOM 108 mg/dL (74-106); LIPASE 185 U/L (73-393); POTASSIUM 4.7 mmol/L (3.5-5.1); SGOT/AST 22 U/L (15-37); SGPT/ALT 37 U/L (13-61); SODIUM 143 mmol/L (136-145); TOT PROT 7.5 g/dl (6.4-8.2)
[2017-12-28] MEDS ORDERED: morphine SULFATE 4 MG/ML VIAL IVPUSH ONE (01:32)
[2017-12-28] MEDS ORDERED: MAG HYDROX/AL HYDROX/SIMETH -MYLANTA- ORAL SUSPENSION PO ONE ×2 (04:05→04:45)
[2017-12-28] MEDS ORDERED: MORPHINE SULFATE 2 MG/ML VIAL IVPUSH ONE (04:05)
[2017-12-28] MEDS ORDERED: MAG HYDROX/AL HYDROX/SIMETH 30 ML UNIT-DOSE CUP ONE ×2 (04:08→04:56)
[2017-12-28] MEDS ORDERED: MORPHINE SULFATE 2 MG/ML VIAL ONE (04:10)
[2017-12-28 05:03] VITALS: BP 120/78; PULSE 88; TEMP 98.5
== END 2017-12-28 05:07 | disposition home or self-care (01) ==
LOC: JER 21:46
PROC: 3E0337Z Introduction of Electrolytic and Water Balance Substance into Peripheral Vein, Percutaneous Approach (ICD-10-PCS; principal; 2017-12-27)
PROC: 3E033NZ Introduction of Analgesics, Hypnotics, Sedatives into Peripheral Vein, Percutaneous Approach (ICD-10-PCS; 2017-12-27)
DX: K57.90 Diverticulosis of intestine, part unspecified, without perforation or abscess without bleeding (principal); I10 Essential (primary) hypertension; E78.5 Hyperlipidemia, unspecified; Z21 Asymptomatic human immunodeficiency virus [HIV] infection status; Z87.19 Personal history of other diseases of the digestive system; M54.5 Low back pain; G89.29 Other chronic pain; Z87.442 Personal history of urinary calculi; F17.210 Nicotine dependence, cigarettes, uncomplicated; Z88.8 Allergy status to other drugs, medicaments and biological substances
CPT/HCPCS: 36415; 74176-TC; 80053; 81003; 83690; 85025; 85610; 86850; 86900; 86901; 87086; 87186; 99282-25; J7030

== ENCOUNTER 2018-03-26 11:08 | Emergency (ER) | payer OTHER ==
[2018-03-26 12:04] VITALS: BMI 29.9
[2018-03-26] MEDS ORDERED: morphine CARPU-JECT 2 MG/1 ML DISP.SYRIN IVPUSH ONE ×2 (13:29→15:10)
[2018-03-26] MEDS ORDERED: ONDANSETRON 4 MG/2 ML VIAL IVPUSH ONE (13:30)
[2018-03-26] MEDS ORDERED: SODIUM CHLORIDE 1,000 ML IV STA (13:30)
[2018-03-26 13:54] LABS: BASO % 0.4 % (0-2.0); EOS % 3.1 % (0-4.5); HEMATOCRIT 43.1 % (32.4-45.2); HEMOGLOBIN 15.4 GM/dL (10.7-15.3); LYMPH % 40.8 % (8-40); MCH 33.5 pg (25.7-33.7); MCHC 35.8 g/dl (32.0-36.0); MEAN CELL VOLUME 93.4 fl (80-96); MEAN PLT VOLUME 8.7 fl (7.5-11.1); MONO % 6.9 % (3.8-10.2); NEUT % 48.8 % (42.8-82.8); PLATELET COUNT 232 K/MM3 (134-434); RBC 4.61 M/mm3 (3.60-5.2); RDW 13.1 % (11.6-15.6); WHITE BLOOD COUNT 8.8 K/mm3 (4.0-10.0)
[2018-03-26 14:43] LABS: ALK PHOS 178 U/L (45-117); ANION GAP 5 MMOL/L (8-16); BILIRUBIN,TOTAL 0.4 mg/dL (0.2-1); BLOOD UREA NITROGEN 15 mg/dL (7-18); CALCIUM 9.4 mg/dL (8.5-10.1); CHLORIDE 109 mmol/L (98-107); CO2 27 mmol/L (21-32); CREATININE 0.6 mg/dL (0.55-1.3); GLUCOSE,RANDOM 105 mg/dL (74-106); MAGNESIUM 2.2 mg/dL (1.8-2.4); POTASSIUM 4.8 mmol/L (3.5-5.1); SGOT/AST 33 U/L (15-37); SGPT/ALT 48 U/L (13-61); SODIUM 140 mmol/L (136-145); TOT PROT 7.4 g/dl (6.4-8.2)
--- NOTE | 2018-03-26 15:25 | PDOC ---
History of Present Illness - General Chief Complaint: Headache Stated Complaint: PALPATIONS/ LIGHT HEADACHE Time Seen by Provider: 03/26/18 12:51 History Source: Patient Exam Limitations: No Limitations - History of Present Illness Initial Comments: 03/26/18 15:25 57-year-old female presents to ED with complaints of headache, nausea, dizziness along with decreased appetite for the past 3 days. Patient denies recent travel, recent head injury, fever, chills, urinary complaints, diarrhea, abdominal pain chest pain, shortness of breath or palpitations. Patient states history of headaches but not to this extent and states has taken medication for the above with no improvement. Timing/Duration: reports: increasing Severity: Yes: moderate Associated Symptoms: reports: nausea/vomiting, weakness Past History - Travel Traveled outside of the country in the last 30 days: No Close contact w/someone who was outside of country & ill: No - Past Medical History Allergies/Adverse Reactions: Allergies Allergy/AdvReac Type Severity Reaction Status Date / Time Iodinated Contrast- Oral and Allergy Severe Hives Verified 03/26/18 11:59 IV Dye [IV Dye, Iodine Containing Contrast ] levofloxacin [From Levaquin] Allergy Unknown Verified 03/26/18 11:59 prochlorperazine edisylate Allergy Unknown Itching Verified 03/26/18 11:59 [From Compazine] prochlorperazine maleate Allergy Unknown Itching Verified 03/26/18 11:59 [From Compazine] Sulfa (Sulfonamide Allergy Unknown Verified 03/26/18 11:59 Antibiotics) [Sulfa(Sulfonamide Antibiotics)] doxycycline AdvReac Severe Swelling Verified 03/26/18 11:59 famotidine [From Pepcid] AdvReac Intermediate Verified 03/26/18 11:59 Home Medications: Ambulatory Orders Efavirenz/Emtricitab/Tenofovir [Atripla Tablet] 1 each PO HS 09/12/12 Omeprazole [Prilosec] 40 mg PO DAILY 06/12/14 Hydrocodone/Ibuprofen [Vicoprofen 7.5-200 mg Tablet] 1 each PO ASDIR 09/29/16 Diphenhydramine HCl [Benadryl Capsule -] 25 mg PO DAILY 09/06/17 Anemia: No Asthma: Yes (NO RECENT ATTACK) Cancer: Yes (H/O UTERINE CANCER) Cardiac Disorders: No CVA: No COPD: No DVT: No Dementia: No Diabetes: No GI Disorders: Yes (GERD,COLONIC POLYP) Disorders: Yes (hx of kidney stones) HTN: No Hypercholesterolemia: Yes Liver Disease: Yes (FATTY LIVER) Seizures: No Thyroid Disease: Yes (nodule on ultrasound) - Surgical History Abdominal Surgery: No Appendectomy: No Cardiac Surgery: No Cholecystectomy: No Lung Surgery: No Neurologic Surgery: No Orthopedic Surgery: (Right rotator cuff sx,Carpel tunnel) - Reproductive History LMP Normal: No Is Patient Now?: No - Immunization History Immunization Up to Date: Yes - Suicide/Smoking/Psychosocial Hx Smoking Status: Yes Smoking History: Current every day smoker Have you smoked in the past 12 months: Yes Number of Cigarettes Smoked Daily: 8 If you are a former smoker, when did you quit?: 3 weeks ago Information on smoking cessation initiated: No 'Breaking Loose' booklet given: 09/07/17 Hx Alcohol Use: No Drug/Substance Use Hx: No Substance Use Type: None Hx Substance Use Treatment: No Patient Lives Alone: Yes Lives with/in: lives alone Neuro Specific PMHX - Complaint Specific PMHX Glaucoma: No Migraine: Yes Multiple Sclerosis: No Review of Systems - Review of Systems Able to Perform ROS?: Yes Constitutional: Yes: Weakness HEENTM: No: Symptoms Reported Respiratory: No: Symptoms reported Cardiac (ROS): Yes: Lightheadedness ABD/GI: Yes: Nausea. No: Abdominal cramping : No: Symptoms Reported Musculoskeletal: No: Symptoms Reported Integumentary: No: Symptoms Reported Neurological: Yes: Headache ( generalized) Endocrine: No: Symptoms Reported Hematologic/Lymphatic: No: Symptoms Reported *Physical Exam - Vital Signs Last Vital Signs Temp Pulse Resp BP Pulse Ox 98.2 F 112 H 20 109/69 99 03/26/18 12:02 03/26/18 12:02 03/26/18 12:02 03/26/18 12:02 03/26/18 12:02 - Physical Exam General Appearance: Yes: Nourished, Appropriately Dressed. No: Apparent Distress HEENT: positive: EOMI, TYLER, TMs Normal, Pharynx Normal. negative: Pale Conjunctivae Neck: positive: Supple Respiratory/Chest: positive: Lungs Clear, Normal Breath Sounds. negative: Respiratory Distress, Accessory Muscle Use Cardiovascular: positive: Regular Rhythm, Tachycardia. negative: Murmur Gastrointestinal/Abdominal: positive: Soft. negative: Tenderness Integumentary: positive: Normal Color, Warm, Moist Neurologic: positive: Motor Strength 5/5 (ambulatory) Moderate Sedation - Procedure Monitoring Vital Signs: Procedure Monitoring Vital Signs Temperature 98.2 F 03/26/18 12:02 Pulse Rate 112 H 03/26/18 12:02 Respiratory Rate 20 03/26/18 12:02 Blood Pressure 109/69 03/26/18 12:02 O2 Sat by Pulse Oximetry (%) 99 03/26/18 12:02 ED Treatment Course - LABORATORY CBC & Chemistry Diagram: 03/26/18 13:40 03/26/18 13:40 - ADDITIONAL ORDERS Additional order review: Laboratory Results 03/26/18 13:40 Sodium 140 Potassium 4.8 Chloride 109 H Carbon Dioxide 27 Anion Gap 5 L BUN 15 Creatinine 0.6 Creat Clearance w eGFR > 60 Random Glucose 105 Calcium 9.4 Magnesium 2.2 Total Bilirubin 0.4 AST 33 ALT 48 Alkaline Phosphatase 178 H Total Protein 7.4 Albumin 4.0 03/26/18 13:40 RBC 4.61 MCV 93.4 MCHC 35.8 RDW 13.1 MPV 8.7 D Neutrophils % 48.8 Lymphocytes % 40.8 H Monocytes % 6.9 Eosinophils % 3.1 Basophils % 0.4 - RADIOLOGY Radiology Studies Ordered: Category Date Time Status HEAD CT WITHOUT CONTRAST [CT] Stat CT Scan 03/26/18 13:31 Ordered CHEST X-RAY PORTABLE* [RAD] Stat Radiology 03/26/18 13:29 Ordered - Medications Given in the ED: ED Medications Discontinued Medications Generic Name Dose Route Start Last Admin Trade Name Freq PRN Reason Stop Dose Admin Sodium Chloride 1,000 mls @ 1,000 mls/hr 03/26/18 13:30 03/26/18 14:22 Normal Saline - IV 03/26/18 14:29 1,000 mls/hr ASDIR STA Administration Morphine Sulfate 4 mg 03/26/18 13:29 03/26/18 14:37 Morphine Injection - IVPUSH 03/26/18 13:30 4 mg ONCE ONE Administration Ondansetron HCl 4 mg 03/26/18 13:30 03/26/18 14:37 Zofran Injection IVPUSH 03/26/18 13:31 4 mg ONCE ONE Administration Medical Decision Making - Medical Decision Making 03/26/18 14:33 Chief complaint: Generalized headache dizziness, nausea and decreased by mouth intake for the past 4 days. Patient examined no acute findings. Patient ordered for labs, influenza, urine, IV fluids, Zofran, morphine and head CT. 03/26/18 15:34 Laboratory Tests 03/26/18 03/26/18 03/26/18 13:40 13:40 13:40 WBC 8.8 Hgb 15.4 H Hct 43.1 Absolute Neuts (auto) 4.3 Neutrophils % 48.8 Lymphocytes % 40.8 H Sodium 140 Potassium 4.8 Chloride 109 H Carbon Dioxide 27 Anion Gap 5 L BUN 15 Creatinine 0.6 Random Glucose 105 Calcium 9.4 Magnesium 2.2 Total Bilirubin 0.4 AST 33 ALT 48 Alkaline Phosphatase 178 H Total Protein 7.4 Albumin 4.0 Influenza A (Rapid) Negative Influenza B (Rapid) Negative Patient awaiting head CT results 03/26/18 16:02 Laboratory Tests 03/26/18 15:00 Urine Ketones Negative Ur Leukocyte Esterase Trace Urine WBC (Auto) Pending Urine RBC (Auto) Pending Head CT showed no evidence of intracranial bleed. Patient states nothing better after receiving second morphine dose. Patient be discharged home with Zofran recommendations to follow-up with her doctor and pain management *DC/Admit/Observation/Transfer Diagnosis at time of Disposition: Headache - Discharge Dispostion Disposition: HOME Condition at time of disposition: Improved - Referrals - Patient Instructions Printed Discharge Instructions: DI for Hormonal and Tension Headaches Additional Instructions: At this time your labs head CT and EKG were normal. I recommend follow-up with her doctor and taking Zofran as needed for nausea. - Post Discharge Activity
[2018-03-26 15:41] LABS: URINE APPEARANCE CLEAR; URINE BILIRUBIN NEGATIVE (<2.0 mg/dL); URINE COLOR YELLOW; URINE GLUCOSE (UA) NEGATIVE (NEGATIVE); URINE KETONE NEGATIVE (NEGATIVE); URINE LEUK ESTERASE TRACE (NEGATIVE); URINE NITRITE NEGATIVE (NEGATIVE); URINE PROTEIN NEGATIVE (NEGATIVE); URINE UROBILINOGEN NEGATIVE mg/dL (0.2-1.0)
[2018-03-26] MEDS ORDERED: morphine SULFATE 4 MG/ML VIAL ONE (15:47)
[2018-03-26 16:04] LABS: EPI CELLS RARE /HPF (FEW); URINE BACTERIA RARE /hpf (NONE SEEN); URINE MUCUS RARE
[2018-03-26 16:48] VITALS: BP 127/76; PULSE 92; TEMP 98.1
--- NOTE | 2018-03-26 17:30 | EKG ---
Test Reason : Blood Pressure : / mmHG Vent. Rate : 105 BPM Atrial Rate : 105 BPM P-R Int : 158 ms QRS Dur : 082 ms QT Int : 358 ms P-R-T Axes : 053 040 049 degrees QTc Int : 473 ms SINUS TACHYCARDIA NONSPECIFIC T WAVE ABNORMALITY ABNORMAL ECG WHEN COMPARED WITH ECG OF 04-JUN-2017 19:34, NO SIGNIFICANT CHANGE WAS FOUND Confirmed by ENZO COOK MD ([id number]) on 03/26/2018 5:30:17 PM Referred By: Confirmed By:ENZO COOK MD
== END 2018-03-26 16:34 | disposition home or self-care (01) ==
LOC: JER 11:08
PROC: 3E0337Z Introduction of Electrolytic and Water Balance Substance into Peripheral Vein, Percutaneous Approach (ICD-10-PCS; principal; 2018-03-26)
PROC: 3E033NZ Introduction of Analgesics, Hypnotics, Sedatives into Peripheral Vein, Percutaneous Approach (ICD-10-PCS; 2018-03-26)
PROC: 3E033NZ Introduction of Analgesics, Hypnotics, Sedatives into Peripheral Vein, Percutaneous Approach (ICD-10-PCS; 2018-03-26)
PROC: 3E033GC Introduction of Other Therapeutic Substance into Peripheral Vein, Percutaneous Approach (ICD-10-PCS; 2018-03-26)
DX: R51 Headache (principal); E78.00 Pure hypercholesterolemia, unspecified; E04.1 Nontoxic single thyroid nodule; Z87.09 Personal history of other diseases of the respiratory system; Z87.19 Personal history of other diseases of the digestive system; Z85.42 Personal history of malignant neoplasm of other parts of uterus; Z88.8 Allergy status to other drugs, medicaments and biological substances
CPT/HCPCS: 36415; 70450-TC; 71045-TC-FY; 80053; 81003; 81015; 83735; 85025; 87086; 87804; 93005; 93010; 96361; 96374; 96375; 96376; 99281-25; J7030

== ENCOUNTER 2018-12-07 04:50 | Emergency (ER) | payer OTHER ==
[2018-12-07 05:09] VITALS: BP 125/67; PULSE 98; TEMP 97.6; BMI 31.9
--- NOTE | 2018-12-07 05:45 | PDOC ---
History of Present Illness - General Chief Complaint: Pain Stated Complaint: ARM PAIN History Source: Patient Exam Limitations: No Limitations - History of Present Illness Initial Comments: 12/07/18 05:26 [id number] with h/o HIV (last CD4 in the past 2-3 months was >1000 and she notes she is adherent to HAART regimen), chronic back pain, fibromyalgia, right rotator cuff surgery, carpal tunnel syndrome, BTL, HTN, HLD, asthma, tobacco smoking, renal colic, and vertigo. She presents with about a week of R>L anterior upper arm pain/bilateral shoulder pain and right sciatica pain. She notes this has been getting a bit worse and she has gotten little relief with her normal Vicoprofen and muscle relaxants, which she receives from her pain management doctor. She notes mild substernal chest discomfort, and mild transient nausea yesterday, but denies any recent f/c, vomiting, diarrhea, constipation, black/ bloody stool, SOB, palpitations, neck or back pain, worsened lightheadedness/ dizziness/imbalance, n/t/w focally, bowel/bladder incontinence, or skin changes. States she has never had this before but has had some h/o right shoulder pain which feels somewhat similar. No recent falls, injuries, abnormal heavy lifting, etc. No recent stressors beyond baseline. She has not run out of any home meds. Past History - Past Medical History Allergies/Adverse Reactions: Allergies Allergy/AdvReac Type Severity Reaction Status Date / Time Iodinated Contrast Media Allergy Severe Hives Verified 12/07/18 06:07 [IV Dye, Iodine Containing Contrast ] levofloxacin [From Levaquin] Allergy Unknown Verified 12/07/18 06:07 prochlorperazine edisylate Allergy Unknown Itching Verified 12/07/18 06:07 [From Compazine] prochlorperazine maleate Allergy Unknown Itching Verified 12/07/18 06:07 [From Compazine] Sulfa (Sulfonamide Allergy Unknown Verified 12/07/18 06:07 Antibiotics) [Sulfa(Sulfonamide Antibiotics)] doxycycline AdvReac Severe Swelling Verified 12/07/18 06:07 famotidine [From Pepcid] AdvReac Intermediate Verified 12/07/18 06:07 Home Medications: Ambulatory Orders Efavirenz/Emtricit/Tenofovr Df [Atripla Tablet] 1 each PO HS 09/12/12 Omeprazole [Prilosec] 40 mg PO DAILY 06/12/14 Hydrocodone/Ibuprofen [Vicoprofen 7.5-200 mg Tablet] 1 each PO TID 09/29/16 Cyclobenzaprine HCl [Flexeril -] 10 mg PO HS PRN 12/07/18 Anemia: No Asthma: Yes (NO RECENT ATTACK) Cancer: Yes (H/O UTERINE CANCER) Cardiac Disorders: No CVA: No COPD: No DVT: No Dementia: No Diabetes: No GI Disorders: Yes (GERD,COLONIC POLYP) Disorders: Yes (hx of kidney stones) HTN: No Hypercholesterolemia: Yes Liver Disease: Yes (FATTY LIVER) Seizures: No Thyroid Disease: Yes (nodule on ultrasound) - Surgical History Abdominal Surgery: No Appendectomy: No Cardiac Surgery: No Cholecystectomy: No Lung Surgery: No Neurologic Surgery: No Orthopedic Surgery: (Right rotator cuff sx,Carpel tunnel) - Immunization History Immunization Up to Date: Yes - Psycho Social/Smoking Cessation Hx Smoking Status: Yes Smoking History: Current every day smoker Have you smoked in the past 12 months: Yes Number of Cigarettes Smoked Daily: 10 If you are a former smoker, when did you quit?: 3 weeks ago Information on smoking cessation initiated: No 'Breaking Loose' booklet given: 09/07/17 Hx Alcohol Use: No Drug/Substance Use Hx: No Substance Use Type: None Hx Substance Use Treatment: No Review of Systems - Review of Systems Able to Perform ROS?: Yes Comments:: 12/07/18 05:57 GEN: no fever, chills, night sweats, generalized weakness, malaise, or unintentional weight change HEENT: no ear pain, congestion, sore throat, rhinorrhea, nosebleed, vision change, or eye pain CV: chest pain, no palpitations, lightheadedness, syncope, edema, or exercise intolerance RESP: no cough, wheezing, or SOB GI: nausea (resolved), no abdominal pain, vomiting, diarrhea, constipation, appetite change, or white/black/bloody stool : no dysuria, hematuria, frequency, incontinence, retention, pruritis, bleeding, or discharge MSK: arm and shoulder pain, no muscle wasting or joint swelling NEURO: no headache, seizure, vertigo, imbalance, numbness, tingling, focal weakness, or difficulty walking/talking PSYCH: no insomnia, behavior change, SI, HI, or substance use SKIN: no prutitis, excessive dryness, jaundice, rash, cuts, or unexplained bruises ROS otherwise negative except as noted in HPI *Physical Exam - Vital Signs Last Vital Signs Temp Pulse Resp BP Pulse Ox 97.6 F 98 H 20 125/67 100 12/07/18 05:04 12/07/18 05:04 12/07/18 05:04 12/07/18 05:04 12/07/18 05:04 - Physical Exam Comments: 12/07/18 06:00 GENERAL: a bit uncomfortable when repositioning but otherwise well-appearing, A/ Ox4, no distress, answers questions appropriately HEENT: PERRLA, EOMI, moist mucous membranes NECK/BACK: no midline ttp to C/T/L spine, no spinal stepoff or deformity, no hematoma, full ROM, neck supple CARDIOVASCULAR: regular rate/rhythm, normal S1S2, no MGR, strong peripheral pulses, capillary refill <2 seconds, extremities wwp, no edema LUNGS/RESPIRATORY: no respiratory distress, CTAB GI/ABDOMEN: symmetric [id number], normoactive BS, soft, no ttp, no midline pulsatile masses : no CVA tenderness EXTREMITIES: R>L mild ttp to anterior mid-shaft upper arm along the biceps muscles, no biceps tendonitis, no ttp glenohumeral joint or AC or clavicle, no muscle atrophy, no acute deformity SKIN: warm and dry, no pallor, no jaundice, no rash, no bruising, no skin breakdown, no cuts, no lesions NEUROLOGICAL: GCS 15, CN II-XII grossly intact, 5/5 strength proximally and distally, no facial droop Heart Score/ECG Review #1 Sinus rhythm, rate 87, normal axis and intervals, no ischemic ST-T changes ED Treatment Course - LABORATORY CBC & Chemistry Diagram: 12/07/18 05:59 12/07/18 05:59 Medical Decision Making - Medical Decision Making 12/07/18 06:08 Pt with h/o with chronic back pain p/w b/l upper arm pain. No new red flag symptoms (see HPI). Initial Vital Signs Temp Pulse Resp BP Pulse Ox 97.6 F 98 H 20 125/67 100 12/07/18 05:04 12/07/18 05:04 12/07/18 05:04 12/07/18 05:04 12/07/18 05:04 Exam: As noted in Physical Exam section. DDX IBNLT: most likely DDD, DJD, osteophyte, compression fxr, other vertebral or spinous process fxr; much LL malignancy (i.e. multiple myeloma), spinal epidural abscess, epidural hematoma, meningitis, or other more concerning etiology. W/U ordered: Labs as noted below, EKG TX ordered: Offered toradol, ibuprofen, naproxen, or Tylenol and patient does not want these. Laboratory Tests 12/07/18 12/07/18 05:59 05:59 WBC 8.0 RBC 4.38 Hgb 14.4 Hct 40.4 MCV 92.2 MCH 32.8 MCHC 35.6 RDW 13.0 Plt Count 207 MPV 8.4 Absolute Neuts (auto) 3.6 Neutrophils % 45.3 Lymphocytes % 43.3 H Monocytes % 6.9 Eosinophils % 3.9 Basophils % 0.6 Nucleated RBC % 0 Sodium 142 Potassium 4.2 Chloride 110 H Carbon Dioxide 24 Anion Gap 7 L BUN 18.0 Creatinine 0.6 Est GFR (CKD-EPI)AfAm 117.27 Est GFR (CKD-EPI)NonAf 101.18 Random Glucose 116 H Calcium 9.2 Total Bilirubin 0.3 AST 28 ALT 49 Alkaline Phosphatase 160 H Creatine Kinase 61 Troponin I < 0.02 Total Protein 6.6 Albumin 3.8 12/07/18 07:05 The Pt is appropriate for discharge with close outpatient follow up. They are comfortable with this plan and will follow up with their primary care provider within 7 days. They are counseled on importance of proactive pain management and neurosurgery follow up. Specific return precautions are discussed and they will come back to the ER if necessary. Discharge - Discharge Information Problems reviewed: Yes Clinical Impression/Diagnosis: Arm pain, anterior Qualifiers: Laterality: unspecified laterality Qualified Code(s): M79.603 - Pain in arm, unspecified Condition: Stable Disposition: HOME - Admission No - Follow up/Referral Referrals: Yandel Johnson MD [Primary Care Provider] - Fernando Feliciano MD [Staff Physician] - Charlie Watts MD [Staff Physician] - Enrique Cristina MD, FAANS [Staff Physician] - - Patient Discharge Instructions Additional Instructions: You were seen in the ER for arm pain and sciatica which are most likely related to your chronic back pain (the nerves in your back travel down your arms and legs as well).. We are giving you referral information for three of our neurosurgeons; please follow up with them and with your pain management doctor. Please discuss changing your pain management regimen with these two doctors so that you can get on top of your back pain - this may include the spinal injections you mentioned, so talk with your pain management doctor about this again too. Call their clinic as soon as possible, tell them you were seen in the ER for back pain, and tell them you need an appointment. If you have any new or worsening symptoms please come back to the ER at any time (24 hours a day ), especially for fever, new numbness, new tingling new weakness, new urinary or bowel incontinence or retention, or other new symptoms. If you are having severe or life threatening symptoms, or symptoms that make it unsafe to drive or have someone drive you, please call 911. - Post Discharge Activity
[2018-12-07 06:16] LABS: BASO % 0.6 % (0-2.0); EOS % 3.9 % (0-4.5); HEMATOCRIT 40.4 % (32.4-45.2); HEMOGLOBIN 14.4 GM/dL (10.7-15.3); LYMPH % 43.3 % (8-40); MCH 32.8 pg (25.7-33.7); MCHC 35.6 g/dl (32.0-36.0); MEAN CELL VOLUME 92.2 fl (80-96); MEAN PLT VOLUME 8.4 fl (7.5-11.1); MONO % 6.9 % (3.8-10.2); NEUT % 45.3 % (42.8-82.8); PLATELET COUNT 207 K/MM3 (134-434); RBC 4.38 M/mm3 (3.60-5.2)
[2018-12-07 06:42] LABS: ALBUMIN 3.8 g/dl (3.4-5.0); ALK PHOS 160 U/L (45-117); ANION GAP 7 MMOL/L (8-16); BILIRUBIN,TOTAL 0.3 mg/dL (0.2-1); CALCIUM 9.2 mg/dL (8.5-10.1); CHLORIDE 110 mmol/L (98-107); CO2 24 mmol/L (21-32); CREATININE 0.6 mg/dL (0.55-1.3); GLUCOSE,RANDOM 116 mg/dL (74-106); POTASSIUM 4.2 mmol/L (3.5-5.1); SGOT/AST 28 U/L (15-37); SGPT/ALT 49 U/L (13-61); SODIUM 142 mmol/L (136-145); TOT PROT 6.6 g/dl (6.4-8.2)
--- NOTE | 2018-12-07 08:17 | PDOC ---
Attending Attestation - Resident Resident Name: AlexsandraAriana - ED Attending Attestation I have performed the following: I have examined & evaluated the patient, The case was reviewed & discussed with the resident, I agree w/resident's findings & plan, Exceptions are as noted - HPI HPI: 12/07/18 08:13 58F pmh HTN, HLD, asthma, HIV well controlled with HAART, fibromyalgia, carpal tunnel syndrome, s/p R rotator cuff surgery here with a week of bilateral upper ext and shoulder shooting pain R greater than L. No numbness, weakness - Physicial Exam PE: 12/07/18 08:16 Agree with exam as documented by resident - Medical Decision Making 12/07/18 08:16 Acute worsening, progression of chronic pain analgesia re-eval referral to neurosurgery f/u with her pain management dc
--- NOTE | 2018-12-07 12:42 | EKG ---
Test Reason : Blood Pressure : / mmHG Vent. Rate : 087 BPM Atrial Rate : 087 BPM P-R Int : 156 ms QRS Dur : 080 ms QT Int : 384 ms P-R-T Axes : 037 017 050 degrees QTc Int : 462 ms NORMAL SINUS RHYTHM NORMAL ECG WHEN COMPARED WITH ECG OF 26-MAR-2018 11:12, NO SIGNIFICANT CHANGE WAS FOUND Confirmed by SCOOTER GOOD MD ([id number]) on 12/07/2018 12:42:06 PM Referred By: Confirmed By:SCOOTER GOOD MD
== END 2018-12-07 07:24 | disposition home or self-care (01) ==
LOC: JER 04:50
DX: M79.603 Pain in arm, unspecified (principal); Z91.041 Radiographic dye allergy status; Z88.8 Allergy status to other drugs, medicaments and biological substances; Z21 Asymptomatic human immunodeficiency virus [HIV] infection status; G56.00 Carpal tunnel syndrome, unspecified upper limb; I10 Essential (primary) hypertension; E78.5 Hyperlipidemia, unspecified; J45.909 Unspecified asthma, uncomplicated; F17.210 Nicotine dependence, cigarettes, uncomplicated; N20.0 Calculus of kidney; R42 Dizziness and giddiness; N94.9 Unspecified condition associated with female genital organs and menstrual cycle; G89.29 Other chronic pain; K76.0 Fatty (change of) liver, not elsewhere classified; K21.9 Gastro-esophageal reflux disease without esophagitis; Z85.42 Personal history of malignant neoplasm of other parts of uterus; E07.9 Disorder of thyroid, unspecified
CPT/HCPCS: 36415; 80053; 82550; 84484; 85025; 93005; 93010; 99283-25

== ENCOUNTER 2018-12-28 21:01 | Emergency (ER) | payer OTHER ==
--- NOTE | 2018-12-28 21:13 | PDOC ---
Rapid Medical Evaluation Chief Complaint: Pain Medical Evaluation: Allergies Allergy/AdvReac Type Severity Reaction Status Date / Time Iodinated Contrast Media Allergy Severe Hives Verified 12/07/18 06:07 [IV Dye, Iodine Containing Contrast ] levofloxacin [From Levaquin] Allergy Unknown Verified 12/07/18 06:07 prochlorperazine edisylate Allergy Unknown Itching Verified 12/07/18 06:07 [From Compazine] prochlorperazine maleate Allergy Unknown Itching Verified 12/07/18 06:07 [From Compazine] Sulfa (Sulfonamide Allergy Unknown Verified 12/07/18 06:07 Antibiotics) [Sulfa(Sulfonamide Antibiotics)] doxycycline AdvReac Severe Swelling Verified 12/07/18 06:07 famotidine [From Pepcid] AdvReac Intermediate Verified 12/07/18 06:07 I have performed a brief in-person evaluation of this patient. The patient presents with a chief complaint of: c/o RLQ today along with 1 episode of emesis; denies prior abd surgeries Pertinent physical exam findings: In mild distress due to pain, TTP along RLQ/R pelvic region I have ordered the following: Labs The patient will proceed to the ED for further evaluation. 12/28/18 21:11
[2018-12-28] MEDS ORDERED: SODIUM CHLORIDE 1,000 ML IV STA (21:14)
[2018-12-28] MEDS ORDERED: ONDANSETRON 4 MG/2 ML VIAL IVPUSH ONE (21:14)
[2018-12-28] MEDS ORDERED: ACETAMINOPHEN 1000 MG/100 ML VIAL (NON FORMULARY) IVPB ONE ×2 (21:14→21:53)
[2018-12-28 21:15] VITALS: BMI 32.1
[2018-12-28] MEDS ORDERED: ONDANSETRON 4 MG/2 ML VIAL ONE (21:43)
[2018-12-28] MEDS ORDERED: ACETAMINOPHEN INJECTION 100 ML IVPB ONE (21:43)
[2018-12-28 21:45] LABS: BASO % 0.4 % (0-2.0); HEMOGLOBIN 15.1 GM/dL (10.7-15.3); MCH 32.5 pg (25.7-33.7); MCHC 34.4 g/dl (32.0-36.0); MEAN CELL VOLUME 94.4 fl (80-96); MEAN PLT VOLUME 8.4 fl (7.5-11.1); MONO % 6.8 % (3.8-10.2); NEUT % 48.8 % (42.8-82.8); PLATELET COUNT 234 K/MM3 (134-434); RBC 4.66 M/mm3 (3.60-5.2); RDW 12.9 % (11.6-15.6); WHITE BLOOD COUNT 11.2 K/mm3 (4.0-10.0)
[2018-12-28] MEDS ORDERED: LACTATED RINGERS SOLUTION 1000 ML INFUS.BAG IV ONE (21:52)
[2018-12-28] MEDS ORDERED: ACETAMINOPHEN 500 MG TABLET (FP) PO ONE (21:52)
[2018-12-28] MEDS ORDERED: LIDOCAINE PATCH REMOVAL MC SCH (22:00)
[2018-12-28 22:03] LABS: INR 0.94 (0.83-1.09); PROTHROMBIN TIME (PATIENT) 11.1 SEC (9.7-13.0)
[2018-12-28 22:06] LABS: ACTIVATED PTT 29.7 SECONDS (25.2-36.5)
[2018-12-28 22:09] LABS: EPI CELLS 2.4 /HPF (0-5/HPF); HYALINE CASTS 0 /lpf (0-8); URINE APPEARANCE CLEAR; URINE BACTERIA 3.3 /hpf (NEGATIVE); URINE BILIRUBIN NEGATIVE (NEGATIVE); URINE COLOR YELLOW; URINE GLUCOSE (UA) NEGATIVE (NEGATIVE); URINE KETONE NEGATIVE (NEGATIVE); URINE LEUK ESTERASE TRACE (NEGATIVE); URINE NITRITE NEGATIVE (NEGATIVE); URINE PROTEIN NEGATIVE (NEGATIVE); URINE RBC 1 /hpf (0-4); URINE UROBILINOGEN 0.2 mg/dL (0.2-1.0); URINE WBC 7 /hpf (0-5)
--- NOTE | 2018-12-28 22:15 | PDOC ---
History of Present Illness - General Chief Complaint: Pain Stated Complaint: RT LOWER ABD PAIN Time Seen by Provider: 12/28/18 21:11 History Source: Patient, Old Records Exam Limitations: No Limitations - History of Present Illness Initial Comments: HPI: 58 y/o female presenting to [facility] complaining of right lower quadrant abdominal pain for the past four hours. Reports the pain started while she was at rest. Described as sharp and intermittent. No change with PO intake. Nonmigratory. Endorses emesis x1 described as nonbloody, nonbilious. One BM since onset that was described as normal and nonbloody. Denies urinary symptoms or lower back pain. Attempted relief with prescribed Vicodin w/ minimal change. Believes she had several bloody bowel movements a few weeks ago. Scheduled for outpatient colonoscopy next week. Medical Hx: - HIV (last CD4 in the past 2-3 months was >1000 and she notes she is adherent to HAART regimen) - Chronic back pain - Fibromyalgia - Right rotator cuff surgery - Carpal tunnel syndrome - S/p BTL - HTN - HLD - Asthma - tobacco smoking - H/o renal colic - Vertigo - Diverticulitis Review of Systems: In addition to that documented in the HPI above, the additional ROS was obtained : Constitutional- Denies fevers or chills Head- Denies vision changes ENMT- Denies sore throat CV- Denies chest pain Resp- Denies SOB GI- Per HPI - Denies painful urination, hematuria, or urinary frequency MSK- Denies recent trauma Skin- Denies new rashes Neuro- Denies new numbness or tingling or weakness Endocrine- Denies polyuria Heme- Denies bleeding or bruising Physical Examination: Constitutional- Adult female in no acute distress or obvious discomfort. Obese body habitus. Found sitting upright on hospital chair. Pt able to stand and walk to exam room without obvious discomfort. Answered all questions appropriately and completely. Head- Normocephalic. No obvious external signs of trauma. Cardiovascular / Chest- Regular rate and regular rhythm. No murmur, rubs, clicks , or gallops. Peripheral pulses- radial pulses full. No pretibial edema. Respiratory- Breathing unlabored. Equal chest rise and fall. Clear to auscultation bilaterally. No stridor, no wheezing, no rhonchi. Gastrointestinal- abdomen is tender in RLQ with grimace but no rebound or guarding. Negative psoas sign. Exam limited by pannus. No hepatosplenomegaly. No pulsatile masses. No overlying skin lesions or obvious signs of trauma. . Neuro- Alert and oriented x4. Moving all four extremities spontaneously. Skin- Warm, dry, and intact. - No R or L CVA tenderness. Psych- Affect- appropriate. Mood- normal. Speech was non-labored, non- pressured. 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 Patient Name: Yamilka Chance Date: 1960 Address: [address] [place] [address] Sex: Female Rx Written Rx Dispensed Drug Quantity Days Supply Prescriber Name 12/17/2018 12/17/2018 hydrocodone-ibuprofen 7.5-200 180 30 Sanchez, Leonard 12/14/2018 12/14/2018 hydrocodone-ibuprofen 7.5-200 12 2 Shanti Arce (AGENCY OWNER) 11/14/2018 11/15/2018 hydrocodone-ibuprofen 7.5-200 180 30 Sanchez, Leonard 10/16/2018 10/19/2018 hydrocodone-ibuprofen 7.5-200 180 30 Sanchez, Leonard 09/19/2018 09/19/2018 hydrocodone-ibuprofen 7.5-200 180 30 Sanchez, Leonard 08/21/2018 08/21/2018 hydrocodone-ibuprofen 7.5-200 180 30 Sanchez, Leonard 07/24/2018 07/25/2018 hydrocodone-ibuprofen 7.5-200 180 30 Sylwia, Desiree, N 06/27/2018 06/27/2018 hydrocodone-ibuprofen 7.5-200 180 30 Sanchez, Leonard 05/29/2018 05/30/2018 hydrocodone-ibuprofen 7.5-200 180 30 Sanchez, Leonard 05/01/2018 05/03/2018 hydrocodone-ibuprofen 7.5-200 180 30 Sanchez, Leonard 04/03/2018 04/03/2018 hydrocodone-ibuprofen 7.5-200 180 30 Sanchez, Leonard 03/15/2018 03/15/2018 hydrocodone-ibuprofen 7.5-200 120 30 Belen Sotkes M, MSN, WEIGHT GUESSER-, 02/14/2018 02/14/2018 hydrocodone-ibuprofen 7.5-200 180 30 Leonard Sanchez 01/10/2018 01/16/2018 hydrocodone-ibuprofen 7.5-200 180 30 Desiree Dao N MDM: *Reviewed vital signs, nursing notes, and prior visit documentation (if available). 58 y/o female presenting with RLQ abdominal pain x4 hours. No improvement w/ taking home Vicodin. Does not take a bowel regimen with her chronic opiates. Afebrile. Vitals remarkable for tachycardia without hypotension. Tended downward without intervention. Physical exam as described above. Mild leukocytosis without left shift. CTAP unremarkable for acute appendicitis. Liver and spleen lesions chronic and noted on previous scans. Lipase not elevated. Low suspicion for pancreatitis. UA unremarkable for pyuria, nitrites, or leukocyte esterase. Transvaginal U/S revealed large amount of bowel gas. Suspect mild constipation as source of pain given nonadherence to bowel regimen with chronic opiate prescription. Zofran, Ofermiv ordered by RME. Additionally ordered LR IVFB and Ketorolac. Pt refused Lidoderm patch. 29 Dec 2018 00:04 AM Called to pts bedside by RN for the second time. Pt refused the lidoderm patch because she doesnt like patches because they do not work for her. Ordered Toradol and pt was brought to CT scan. Pt became upset because there was another pt using the scanner, so she walked back to the department. Pt then refused the Toradol because it doesnt work for her. When queried, pt reported the only thing that worked for her was Morphine. Explained to the pt that Morphine could not be prescribed at this time. Pt became upset but agreed to try and lay flat for the CT scan. Pt reassessed. Abd pain had improved. No acute abdominal signs on repeat exam. Discussed labs and xrays results with pt . Answered all questions. Provided return precautions. Pt expressed verbal understanding and agreement with plan to discharge home with outpatient follow up. Provided copies of todays results. Encouraged better adherence with Miralax. Pt declined prescription for Miralax stating she had it at home. Declined dose before leaving the department. Will f/u at previously scheduled GI appt. Emmanuel Shaw M.D., PGY2 Emergency Medicine Resident Past History - Past Medical History Allergies/Adverse Reactions: Allergies Allergy/AdvReac Type Severity Reaction Status Date / Time Iodinated Contrast Media Allergy Severe Hives Verified 12/28/18 21:15 [IV Dye, Iodine Containing Contrast ] levofloxacin [From Levaquin] Allergy Unknown Verified 12/28/18 21:15 prochlorperazine edisylate Allergy Unknown Itching Verified 12/28/18 21:15 [From Compazine] prochlorperazine maleate Allergy Unknown Itching Verified 12/28/18 21:15 [From Compazine] Sulfa (Sulfonamide Allergy Unknown Verified 12/28/18 21:15 Antibiotics) [Sulfa(Sulfonamide Antibiotics)] doxycycline AdvReac Severe Swelling Verified 12/28/18 21:15 famotidine [From Pepcid] AdvReac Intermediate Verified 12/28/18 21:15 Home Medications: Ambulatory Orders Efavirenz/Emtricit/Tenofovr Df [Atripla Tablet] 1 each PO HS 09/12/12 Omeprazole [Prilosec] 40 mg PO DAILY 06/12/14 Hydrocodone/Ibuprofen [Vicoprofen 7.5-200 mg Tablet] 1 each PO TID 09/29/16 Cyclobenzaprine HCl [Flexeril -] 10 mg PO HS PRN 12/07/18 Anemia: No Asthma: Yes (NO RECENT ATTACK) Cancer: Yes (H/O UTERINE CANCER at 25 yrs old) Cardiac Disorders: No CVA: No COPD: No DVT: No Dementia: No Diabetes: No GI Disorders: Yes (GERD,COLONIC POLYP) Disorders: Yes (hx of kidney stones) HTN: No Hypercholesterolemia: Yes Liver Disease: Yes (FATTY LIVER) Seizures: No Thyroid Disease: Yes (nodule on ultrasound) Other medical history: vertigo, fibromyalgia - Surgical History Abdominal Surgery: No Appendectomy: No Cardiac Surgery: No Cholecystectomy: No Lung Surgery: No Neurologic Surgery: No Orthopedic Surgery: (Right rotator cuff sx,Carpel tunnel) - Immunization History Immunization Up to Date: Yes - Psycho Social/Smoking Cessation Hx Smoking Status: Yes Smoking History: Never smoked Have you smoked in the past 12 months: Yes Number of Cigarettes Smoked Daily: 8 If you are a former smoker, when did you quit?: 3 weeks ago 'Breaking Loose' booklet given: 09/07/17 Hx Alcohol Use: No Drug/Substance Use Hx: No Substance Use Type: None Hx Substance Use Treatment: No *Physical Exam - Vital Signs Last Vital Signs Temp Pulse Resp BP Pulse Ox 98.2 F 119 H 18 131/85 99 12/28/18 21:11 12/28/18 21:11 12/28/18 21:11 12/28/18 21:11 12/28/18 21:11 ED Treatment Course - LABORATORY CBC & Chemistry Diagram: 12/28/18 21:26 12/28/18 21:26 - ADDITIONAL ORDERS Additional order review: Laboratory Results 12/28/18 12/28/18 21:26 21:26 PT with INR 11.10 INR 0.94 PTT (Actin FS) 29.7 Urine Color Yellow Urine Appearance Clear Urine pH 6.0 Ur Specific [place] 1.023 Urine Protein Negative Urine Glucose (UA) Negative Urine Ketones Negative Urine Blood Negative Urine Nitrite Negative Urine Bilirubin Negative Urine Urobilinogen 0.2 Ur Leukocyte Esterase Trace Urine WBC (Auto) 7 Urine RBC (Auto) 1 Urine Casts (Auto) 0 U Epithel Cells (Auto) 2.4 Urine Bacteria (Auto) 3.3 12/28/18 21:26 RBC 4.66 MCV 94.4 MCHC 34.4 RDW 12.9 MPV 8.4 Neutrophils % 48.8 Lymphocytes % 41.0 H Monocytes % 6.8 Eosinophils % 3.0 Basophils % 0.4 - RADIOLOGY Radiology Studies Ordered: Category Date Time Status ABDOMEN & PELVIS CT WITH CONTR [CT] Stat CT Scan 12/28/18 22:03 Ordered Radiograph Interpretation: CTAB: THIS IS A PRELIMINARY REPORT FROM [facility]PER[facility] DATE OF SERVICE: 2018-12-29 00:10:26 IMAGES: 513 EXAM: ABDOMEN \T\ PELVIS CT W/O CONTR HISTORY: Rule out ileus or obstruction COMPARISON: None. FINDINGS: The visualized lung bases are clear The liver is mildly enlarged measuring 18 cm in craniocaudal dimension with 2 small calcifications in the left lobe compatible with granulomas Normal appearance of the gallbladder Mild fatty changes of the pancreas There is a partially calcified splenic artery aneurysm measuring 1 cm as well as an aneurysm distal to this with nearly complete peripheral calcification measuring 1.3 cm There is a splenic granuloma. The spleen is not enlarged The adrenal glands are unremarkable Punctate nonobstructing upper pole left renal stone. The kidneys are otherwise unremarkable Small umbilical hernia containing fat No bowel distention or appreciable thickening allowing for lack of enteric contrast. The appendix is normal Colonic diverticulosis, predominantly sigmoid colon without evidence of acute diverticulitis The unenhanced uterus and adnexal structures are grossly normal The bladder is normal in contour without thickening No intra-abdominal free air or free fluid One or more of the following dose reduction techniques were used: automated exposure control, adjustment of the mA and/or kV according to patient size, use of iterative reconstructive technique. THIS DOCUMENT HAS BEEN ELECTRONICALLY SIGNED Emmanuel Lamb MD 12/29/2018 00:56 EST [place]. Please call Imaging W[facility] Boot Top Assembler [phone] ([phone]) with questions. Emmanuel Lamb MD Transvaginal U/S: THIS IS A PRELIMINARY REPORT FROM [facility] OPER[facility] DATE OF SERVICE: 2018-12-29 01:13:31 IMAGES: 29 EXAM: Pelvic ultrasound with Doppler study of the bilateral ovaries HISTORY: Rule out cancer or ovarian pathology COMPARISON: None. FINDINGS: Normal uterus. Normal homogeneous endometrial complex measuring 1 mm in thickness. No free fluid. Neither the right nor the left ovary could be visualized. Excessive bowel gas. Therefore, cannot evaluate for ovarian pathology. THIS DOCUMENT HAS BEEN ELECTRONICALLY SIGNED Shakir Hernandez MD 12/29/2018 02:38 EST - Medications Given in the ED: ED Medications Discontinued Medications Generic Name Dose Route Start Last Admin Trade Name Freq PRN Reason Stop Dose Admin Acetaminophen 1,000 mg 12/28/18 21:14 12/28/18 22:07 Ofirmev Injection - IVPB 12/28/18 21:15 Not Given ONCE ONE Acetaminophen 1,000 mg 12/28/18 21:53 12/28/18 22:06 Ofirmev Injection - IVPB 12/28/18 21:54 1,000 mg ONCE ONE Administration Sodium Chloride 1,000 mls @ 1,000 mls/hr 12/28/18 21:14 12/28/18 22:07 Normal Saline - IV 12/28/18 22:13 Not Given ASDIR STA Lactated Ringer's 1,000 ml 12/28/18 21:52 12/28/18 22:06 Lactated Ringers Solution IV 12/28/18 21:53 1,000 ml ONCE ONE Administration Ondansetron HCl 4 mg 12/28/18 21:14 12/28/18 22:06 Zofran Injection IVPUSH 12/28/18 21:15 4 mg ONCE ONE Administration Discharge - Discharge Information Problems reviewed: Yes Clinical Impression/Diagnosis: RLQ abdominal pain Condition: Improved Disposition: HOME - Admission No - Additional Discharge Information Prescription Drug Monitoring Program (I-STOP) results: I-STOP reviewed and no issues identified - Follow up/Referral Referrals: Yandel Johnson MD [Primary Care Provider] - - Patient Discharge Instructions Patient Printed Discharge Instructions: DI for Abdominal Pain-Adult, DI for Prescription Opioid Use Additional Instructions: You were seen today for right lower abdominal pain. Your CT scan showed a mildly enlarged liver with two small calcifications, a partially calcified splenic artery aneurysm, and a splenic granuloma. These were all seen on your previous CT scans. You should discuss this findings with your primary care doctor. Your ultrasound showed a lot of bowel gas. This is likely the source of your pain. You need to take your prescribed Miralax everyday while you are taking the Vicodin. You can also take over the counter Tylenol as needed for pain. Take as directed on the package insert. Do not exceed the recommended dosage. 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 A copy of todays results are attached to this packet. Take it to the appointment so your doctor can review them. Go to the nearest emergency department if your condition worsens or you feel like you need additional emergency evaluation. Print Language: WOLOF - Post Discharge Activity
[2018-12-28 22:17] LABS: ALBUMIN 3.9 g/dl (3.4-5.0); BILIRUBIN,TOTAL 0.2 mg/dL (0.2-1); BLOOD UREA NITROGEN 21.3 mg/dL (7-18); CALCIUM 9.4 mg/dL (8.5-10.1); CREATININE 0.7 mg/dL (0.55-1.3); POTASSIUM 4.3 mmol/L (3.5-5.1); TOT PROT 7.1 g/dl (6.4-8.2)
[2018-12-28] MEDS ORDERED: LIDOCAINE 5% TOPICAL PATCH TP ONE (23:09)
[2018-12-28] MEDS ORDERED: KETOROLAC TROMETHAMINE 30 MG/1 ML VIAL IVPUSH ONE (23:40)
[2018-12-29] MEDS ORDERED: KETOROLAC TROMETHAMINE 30 MG/1 ML VIAL ONE (00:03)
--- NOTE | 2018-12-29 01:04 | PDOC ---
Attending Attestation - Resident Resident Name: Emmanuel Shaw - ED Attending Attestation I have performed the following: I have examined & evaluated the patient, The case was reviewed & discussed with the resident, I agree w/resident's findings & plan - HPI HPI: 12/29/18 19:57 Pt comes with suprapubic pain; RLQ pain - Physicial Exam PE: 12/29/18 19:57 Agree with resident exam - Medical Decision Making 12/29/18 01:04 Patient Name: CHRISTIN REYEZ THIS IS A PRELIMINARY REPORT FROM [facility] DATE OF SERVICE: 2018-12-29 00:10:26 IMAGES: 513 EXAM: ABDOMEN \T\ PELVIS CT W/O CONTR HISTORY: Rule out ileus or obstruction COMPARISON: None. FINDINGS: The visualized lung bases are clear The liver is mildly enlarged measuring 18 cm in craniocaudal dimension with 2 small calcifications in the left lobe compatible with granulomas Normal appearance of the gallbladder Mild fatty changes of the pancreas There is a partially calcified splenic artery aneurysm measuring 1 cm as well as an aneurysm distal to this with nearly complete peripheral calcification measuring 1.3 cm There is a splenic granuloma. The spleen is not enlarged The adrenal glands are unremarkable Punctate nonobstructing upper pole left renal stone. The kidneys are otherwise unremarkable Small umbilical hernia containing fat No bowel distention or appreciable thickening allowing for lack of enteric contrast. The appendix is normal Colonic diverticulosis, predominantly sigmoid colon without evidence of acute diverticulitis The unenhanced uterus and adnexal structures are grossly normal The bladder is normal in contour without thickening No intra-abdominal free air or free fluid 12/29/18 Patient Name: CHRISTIN REYEZ THIS IS A PRELIMINARY REPORT FROM [facility] DATE OF SERVICE: 2018-12-29 01:13:31 IMAGES: 29 EXAM: Pelvic ultrasound with Doppler study of the bilateral ovaries HISTORY: Rule out cancer or ovarian pathology COMPARISON: None. FINDINGS: Normal uterus. Normal homogeneous endometrial complex measuring 1 mm in thickness. No free fluid. Neither the right nor the left ovary could be visualized. Excessive bowel gas. Therefore, cannot evaluate for ovarian pathology. 12/29/18 02:42 12/29/18 19:57 Labs normal; pt is stable for d/c home.
[2018-12-29 02:15] VITALS: BP 109/68; PULSE 78; TEMP 98.1
== END 2018-12-29 02:57 | disposition home or self-care (01) ==
LOC: JER 21:01
PROC: 3E0333Z Introduction of Anti-inflammatory into Peripheral Vein, Percutaneous Approach (ICD-10-PCS; principal; 2018-12-28)
PROC: 3E033NZ Introduction of Analgesics, Hypnotics, Sedatives into Peripheral Vein, Percutaneous Approach (ICD-10-PCS; 2018-12-28)
PROC: 3E033GC Introduction of Other Therapeutic Substance into Peripheral Vein, Percutaneous Approach (ICD-10-PCS; 2018-12-28)
PROC: 3E0337Z Introduction of Electrolytic and Water Balance Substance into Peripheral Vein, Percutaneous Approach (ICD-10-PCS; 2018-12-28)
DX: R10.31 Right lower quadrant pain (principal); I10 Essential (primary) hypertension; Z21 Asymptomatic human immunodeficiency virus [HIV] infection status; M79.7 Fibromyalgia; M54.5 Low back pain; G89.29 Other chronic pain; E78.5 Hyperlipidemia, unspecified; J45.909 Unspecified asthma, uncomplicated; F17.210 Nicotine dependence, cigarettes, uncomplicated; K21.9 Gastro-esophageal reflux disease without esophagitis; E04.1 Nontoxic single thyroid nodule; E66.9 Obesity, unspecified; Z68.32 Body mass index [BMI] 32.0-32.9, adult; Z87.442 Personal history of urinary calculi; Z85.42 Personal history of malignant neoplasm of other parts of uterus
CPT/HCPCS: 36415; 74176-TC; 76830-TC; 80053; 81003; 83690; 85025; 85610; 85730; 86850; 86900; 86901; 96374; 96375; 99283-25; J0131

== ENCOUNTER 2019-03-29 15:29 | Emergency (ER) | payer OTHER ==
--- NOTE | 2019-03-29 15:36 | PDOC ---
Rapid Medical Evaluation Chief Complaint: Pain Time Seen by Provider: 03/29/19 15:34 Medical Evaluation: Allergies Allergy/AdvReac Type Severity Reaction Status Date / Time Iodinated Contrast Media Allergy Severe Hives Verified 12/28/18 21:15 [IV Dye, Iodine Containing Contrast ] levofloxacin [From Levaquin] Allergy Unknown Verified 12/28/18 21:15 prochlorperazine edisylate Allergy Unknown Itching Verified 12/28/18 21:15 [From Compazine] prochlorperazine maleate Allergy Unknown Itching Verified 12/28/18 21:15 [From Compazine] Sulfa (Sulfonamide Allergy Unknown Verified 12/28/18 21:15 Antibiotics) [Sulfa(Sulfonamide Antibiotics)] doxycycline AdvReac Severe Swelling Verified 12/28/18 21:15 famotidine [From Pepcid] AdvReac Intermediate Verified 12/28/18 21:15 03/29/19 15:35 58 year old female c/o RUQ pain radiating to the back x 6 days. patient reports nausea. vomited 1 x. denies urinary symptoms. PMHX; back pain, vertigo, hypercholestremia, HIV + (viral load undetectable) PE: patient alert ox3 A; abdominal pain P; labs EKG 03/29/19 15:38 Discharge Disposition - Diagnosis Abdominal pain Qualifiers: Abdominal location: upper abdomen, unspecified Qualified Code(s): R10.10 - Upper abdominal pain, unspecified - Referrals - Patient Instructions - Post Discharge Activity
[2019-03-29 15:38] VITALS: TEMP 97.9; BMI 32.8
[2019-03-29 16:24] LABS: BASO % 0.8 % (0-2.0); EOS % 3.2 % (0-4.5); HEMATOCRIT 43.9 % (32.4-45.2); LYMPH % 40.2 % (8-40); MCH 31.9 pg (25.7-33.7); MCHC 34.2 g/dl (32.0-36.0); MEAN CELL VOLUME 93.3 fl (80-96); MEAN PLT VOLUME 8.9 fl (7.5-11.1); MONO % 6.8 % (3.8-10.2); PLATELET COUNT 233 K/MM3 (134-434); RDW 12.5 % (11.6-15.6); WHITE BLOOD COUNT 9.6 K/mm3 (4.0-10.0)
[2019-03-29] MEDS ORDERED: ACETAMINOPHEN 1000 MG/100 ML VIAL (NON FORMULARY) IVPB ONE (16:35)
[2019-03-29] MEDS ORDERED: ONDANSETRON 4 MG/2 ML VIAL IVPUSH ONE (16:35)
[2019-03-29] MEDS ORDERED: SODIUM CHLORIDE 0.9% 500 ML INFUS.BAG IV ONE (16:35)
[2019-03-29 16:37] LABS: EPI CELLS 8.2 /HPF (0-5/HPF); HYALINE CASTS 4 /lpf (0-8); PH,URINE 5.5 (5.0-8.0); URINE APPEARANCE CLEAR; URINE BACTERIA 69.3 /hpf (NEGATIVE); URINE BILIRUBIN NEGATIVE (NEGATIVE); URINE COLOR YELLOW; URINE GLUCOSE (UA) NEGATIVE (NEGATIVE); URINE KETONE NEGATIVE (NEGATIVE); URINE LEUK ESTERASE 1+ (NEGATIVE); URINE NITRITE NEGATIVE (NEGATIVE); URINE PROTEIN NEGATIVE (NEGATIVE); URINE RBC 1 /hpf (0-4); URINE UROBILINOGEN 0.2 mg/dL (0.2-1.0); URINE WBC 8 /hpf (0-5)
[2019-03-29 16:45] LABS: ALBUMIN 3.8 g/dl (3.4-5.0); ALK PHOS 173 U/L (45-117); ANION GAP 6 MMOL/L (8-16); BILIRUBIN,TOTAL 0.3 mg/dL (0.2-1); BLOOD UREA NITROGEN 14.5 mg/dL (7-18); CALCIUM 9.3 mg/dL (8.5-10.1); CHLORIDE 110 mmol/L (98-107); CO2 25 mmol/L (21-32); CREATININE 0.7 mg/dL (0.55-1.3); GLUCOSE,RANDOM 109 mg/dL (74-106); LIPASE 121 U/L (73-393); POTASSIUM 4.7 mmol/L (3.5-5.1); SGOT/AST 26 U/L (15-37); SGPT/ALT 45 U/L (13-61); SODIUM 141 mmol/L (136-145)
[2019-03-29] MEDS ORDERED: ONDANSETRON 4 MG/2 ML VIAL ONE (17:02)
[2019-03-29] MEDS ORDERED: ACETAMINOPHEN INJECTION 100 ML IVPB ONE (17:02)
--- NOTE | 2019-03-29 17:04 | PDOC ---
Attending Attestation - Resident Resident Name: Yamilet Tyler - ED Attending Attestation I have performed the following: I have examined & evaluated the patient, The case was reviewed & discussed with the resident, I agree w/resident's findings & plan - HPI HPI: 03/29/19 20:58 see resident hpi - Physicial Exam PE: 03/29/19 20:58 agree with resident exam - Medical Decision Making 03/29/19 20:59 58-year-old female complaining of right upper quadrant pain radiating to the right flank currently on antiretroviral treatment with undetectable viral load CT scan of the chest abdomen and pelvis showed no significant acute abnormality Patient still having significant pain after IV Tylenol as well as nausea We will add low-dose Toradol for possible pain due to gas/constipation as patient is on chronic opiates We will admit to medical service for observation
--- NOTE | 2019-03-29 17:14 | PDOC ---
History of Present Illness - General Chief Complaint: Pain Stated Complaint: ABD PAIN Time Seen by Provider: 03/29/19 15:34 - History of Present Illness Initial Comments: 03/29/19 17:07 58 y/o F hx of HIV, HLD, vertigo and chronic back pain presents to the ER with 6 days of abdominal pain.Pain is located in the right upper quadrant and is pressure like in quality 10/10 in intensity and radiates to her back. She took some vicoprofen which did not relieve her pain. Pain is made worse by movement. She was prompted to come to the ED today due to nausea and vomiting which started yesterday. She has 2 episodes on non-bloody non bilious emesis since yesterday. She has had 3 bowel movements today an denies any diarrhea/bloody stools/constipation at any time. she denies fevers, chills, dysuria, hematuria, hx of abdominal surgery. Past History - Past Medical History Allergies/Adverse Reactions: Allergies Allergy/AdvReac Type Severity Reaction Status Date / Time Iodinated Contrast Media Allergy Severe Hives Verified 03/29/19 15:38 [IV Dye, Iodine Containing Contrast ] levofloxacin [From Levaquin] Allergy Unknown Verified 03/29/19 15:38 prochlorperazine edisylate Allergy Unknown Itching Verified 03/29/19 15:38 [From Compazine] prochlorperazine maleate Allergy Unknown Itching Verified 03/29/19 15:38 [From Compazine] Sulfa (Sulfonamide Allergy Unknown Verified 03/29/19 15:38 Antibiotics) [Sulfa(Sulfonamide Antibiotics)] doxycycline AdvReac Severe Swelling Verified 03/29/19 15:38 famotidine [From Pepcid] AdvReac Intermediate Verified 03/29/19 15:38 Home Medications: Ambulatory Orders Efavirenz/Emtricit/Tenofovr Df [Atripla Tablet] 1 each PO HS 09/12/12 Omeprazole [Prilosec] 40 mg PO DAILY 06/12/14 Hydrocodone/Ibuprofen [Vicoprofen 7.5-200 mg Tablet] 1 each PO TID 09/29/16 Cyclobenzaprine HCl [Flexeril -] 10 mg PO HS PRN 12/07/18 Simethicone 125 mg PO DAILY 03/29/19 Anemia: No Asthma: Yes (NO RECENT ATTACK) Cancer: Yes (H/O UTERINE CANCER at 25 yrs old) Cardiac Disorders: No CVA: No COPD: No DVT: No Dementia: No Diabetes: No GI Disorders: Yes (GERD,COLONIC POLYP) Disorders: Yes (hx of kidney stones) HTN: No Hypercholesterolemia: Yes Liver Disease: Yes (FATTY LIVER) Seizures: No Thyroid Disease: Yes (nodule on ultrasound) - Surgical History Abdominal Surgery: No Appendectomy: No Cardiac Surgery: No Cholecystectomy: No Lung Surgery: No Neurologic Surgery: No Orthopedic Surgery: (Right rotator cuff sx,Carpel tunnel) - Immunization History Immunization Up to Date: Yes - Psycho Social/Smoking Cessation Hx Smoking Status: Yes Smoking History: Never smoked Have you smoked in the past 12 months: No Number of Cigarettes Smoked Daily: 8 If you are a former smoker, when did you quit?: 3 weeks ago Information on smoking cessation initiated: No 'Breaking Loose' booklet given: 09/07/17 Hx Alcohol Use: No Drug/Substance Use Hx: No Substance Use Type: None Hx Substance Use Treatment: No Review of Systems - Review of Systems Constitutional: No: Chills, Fever HEENTM: No: Eye Pain, Blurred Vision Respiratory: No: Cough, Shortness of Breath Cardiac (ROS): No: Chest Pain, Irregular Heart Rate ABD/GI: Yes: Nausea, Vomiting : No: Burning, Dysuria, Hematuria Musculoskeletal: Yes: Back Pain Integumentary: No: Bruising, Change in Color Neurological: No: Headache, Numbness *Physical Exam - Vital Signs Last Vital Signs Temp Pulse Resp BP Pulse Ox 97.9 F 93 H 17 157/79 97 03/29/19 15:36 03/29/19 15:36 03/29/19 15:36 03/29/19 15:36 03/29/19 15:36 - Physical Exam 03/29/19 17:04 GENERAL:Well developed, well nourished. Awake and alert. No acute distress. HEENT:Normocephalic, atraumatic. PERRLA, EOMI. No conjunctival pallor. Sclera are non-icteric. Moist mucous membranes. Oropharynx is clear. NECK: Supple. Full ROM. No JVD. Carotid pulses 2+ and symmetric, without bruits. No thyromegaly. No lymphadenopathy. CARDIOVASCULAR:Regular rate and rhythm. No murmurs, rubs, or gallops. Distal pulses are 2+ and symmetric. PULMONARY: No evidence of respiratory distress. Lungs clear to auscultation bilaterally. No wheezing, rales or rhonchi. ABDOMINAL:Soft. tenderness to palpation epigastric and RUQ. no guarding or rebound. MUSCULOSKELETAL Normal range of motion at all joints. No bony deformities or tenderness. No CVA tenderness. EXTREMITIES: No cyanosis. No clubbing. No edema. No calf tenderness. SKIN: Warm and dry. Normal capillary refill. No rashes. No jaundice. NEUROLOGICAL: Alert, awake, appropriate. Cranial nerves 2-12 intact. No deficits to light touch and temperature in face, upper extremities and lower extremities. No motor deficits in the in face, upper extremities and lower extremities. . Normal speech. PSYCHIATRIC: Cooperative. Good eye contact. Appropriate mood and affect. ED Treatment Course - LABORATORY CBC & Chemistry Diagram: 03/29/19 15:10 03/29/19 15:10 - ADDITIONAL ORDERS Additional order review: Laboratory Results 03/29/19 03/29/19 15:49 15:10 Sodium 141 Potassium 4.7 Chloride 110 H Carbon Dioxide 25 Anion Gap 6 L BUN 14.5 Creatinine 0.7 Est GFR (CKD-EPI)AfAm 111.47 Est GFR (CKD-EPI)NonAf 96.18 Random Glucose 109 H Calcium 9.3 Total Bilirubin 0.3 AST 26 ALT 45 Alkaline Phosphatase 173 H Total Protein 7.0 Albumin 3.8 Lipase 121 Urine Color Yellow Urine Appearance Clear Urine pH 5.5 Ur Specific [place] 1.016 Urine Protein Negative Urine Glucose (UA) Negative Urine Ketones Negative Urine Blood Negative Urine Nitrite Negative Urine Bilirubin Negative Urine Urobilinogen 0.2 Ur Leukocyte Esterase 1+ H Urine WBC (Auto) 8 Urine RBC (Auto) 1 Urine Casts (Auto) 4 U Epithel Cells (Auto) 8.2 Urine Bacteria (Auto) 69.3 03/29/19 15:10 RBC 4.70 MCV 93.3 MCHC 34.2 RDW 12.5 MPV 8.9 Neutrophils % 49.0 Lymphocytes % 40.2 H Monocytes % 6.8 Eosinophils % 3.2 Basophils % 0.8 - RADIOLOGY Radiology Studies Ordered: Category Date Time Status ABDOMEN US -LIMITED [US] Stat Ultrasound 03/29/19 16:36 Ordered Medical Decision Making - Medical Decision Making 03/29/19 17:14 58 y/o F hx of HIV, HLD, vertigo and chronic back pain presents to the ER with 6 days of abdominal pain. ekg, cbc, cmp, lipase, troponin, RUQ ultrasound EKG: NSR, nomal EKG Qtc 407 Meds: 1L normal saline, IV tylenol, zofran 03/29/19 17:24 Labs unremarkable, pt receiving meds. 03/29/19 18:27 RUQ ultrasound no sonographic evidence of cholellithiasis or acute cholecystitis gallbladder polyp noted in 2018 is not seen on this exam. correlation with 12 month follow up suggeted no definite biliary tract dilatation 03/29/19 20:[address] chest,abdomen and pelvis pending 03/29/19 21:26 pt reporting more pain and nausea admitting team contacted for admission for intractable pain -will give additional medication 4mg morphine 15mg toradol reglan 10mg IV protonix 20mg IV Discharge - Discharge Information Problems reviewed: Yes Clinical Impression/Diagnosis: Abdominal pain Qualifiers: Abdominal location: upper abdomen, unspecified Qualified Code(s): R10.10 - Upper abdominal pain, unspecified Condition: Stable Disposition: HOME - Follow up/Referral Referrals: Yandel Johnson MD [Primary Care Provider] - - Patient Discharge Instructions Patient Printed Discharge Instructions: DI for Abdominal Pain-Adult Additional Instructions: return to the ED if your pain gets worse, you develop fever, chills, burning urine Follow up with your primary care doctor in the next 2-3 days. - Post Discharge Activity
[2019-03-29] MEDS ORDERED: METOCLOPRAMIDE HCL INJECTION 10 MG/2 ML VIAL IVPB ONE (21:00)
[2019-03-29] MEDS ORDERED: KETOROLAC TROMETHAMINE 30 MG/1 ML VIAL IVPUSH ONE (21:00)
[2019-03-29] MEDS ORDERED: morphine CARPU-JECT 4 MG/1 ML DISP.SYRIN IVPUSH ONE ×2 (21:09→21:24)
[2019-03-29] MEDS ORDERED: PANTOPRAZOLE SODIUM 40 MG VIAL IVPUSH ONE (21:24)
[2019-03-29] MEDS ORDERED: METOCLOPRAMIDE HCL INJECTION 10 MG/2 ML VIAL ONE (21:26)
[2019-03-29] MEDS ORDERED: morphine SULFATE 4 MG/ML VIAL ONE (21:27)
[2019-03-29] MEDS ORDERED: KETOROLAC TROMETHAMINE 15 MG/ML VIAL ONE (21:27)
[2019-03-29] MEDS ORDERED: PANTOPRAZOLE SODIUM 40 MG VIAL ONE (21:30)
[2019-03-29 22:38] VITALS: BP 125/61; PULSE 75
--- NOTE | 2019-03-30 14:32 | EKG ---
Test Reason : Blood Pressure : / mmHG Vent. Rate : 063 BPM Atrial Rate : 063 BPM P-R Int : 146 ms QRS Dur : 080 ms QT Int : 398 ms P-R-T Axes : 048 022 046 degrees QTc Int : 407 ms NORMAL SINUS RHYTHM NORMAL ECG Confirmed by MD ROSS GREGORY ([id number]) on 03/30/2019 2:32:36 PM Referred By: Confirmed By:LUKE ROSS MD
== END 2019-03-29 22:41 | disposition home or self-care (01) ==
LOC: JER 15:29
PROC: 3E033NZ Introduction of Analgesics, Hypnotics, Sedatives into Peripheral Vein, Percutaneous Approach (ICD-10-PCS; principal; 2019-03-29)
PROC: 3E0333Z Introduction of Anti-inflammatory into Peripheral Vein, Percutaneous Approach (ICD-10-PCS; 2019-03-29)
PROC: 3E033GC Introduction of Other Therapeutic Substance into Peripheral Vein, Percutaneous Approach (ICD-10-PCS; 2019-03-29)
DX: R10.10 Upper abdominal pain, unspecified (principal)
CPT/HCPCS: 36415; 71250-TC; 74176-TC; 76705-TC; 80053; 81003; 83605; 83690; 84484; 85025; 93005; 93010; 96374; 96375; 99283-25; J0131

== ENCOUNTER 2019-04-01 02:27 | Inpatient (IN) | payer OTHER ==
--- NOTE | 2019-04-01 03:10 | PDOC ---
History of Present Illness - General Chief Complaint: Pain, Acute Stated Complaint: BACK AND ABD PAIN Time Seen by Provider: 04/01/19 02:56 History Source: Patient Exam Limitations: No Limitations - History of Present Illness Initial Comments: 04/01/19 04:00 HPI: 58 yo F pmh HIV (on HAART), HLD, vertigo, and chronic back pain presenting with 10 days of abdominal pain (seen and evaluated 03/29 for the same pain). Pain is located in the right upper quadrant and is pressure like in quality 10/10 in intensity and radiates to her back. It comes in waves, was slightly improved after her 03/29 visit so she opted to return home despite an offer for admission. This morning she took some vicoprofen which did not relieve her pain - the same thing she attempted last time. Pain is made worse by movement. She no long has vomiting, but endorses continued nausea for three days. Of note, she did a bowel prep for colonoscopy scheduled with Dr. Llamas tomorrow and says as the day progressed her pain worsened. She denies fevers, chills, dysuria, hematuria , prior abdominal surgery. While evaluated 03/29, had negative CTAP, negative RUQ US, labs within normal limits. Was offered admission for intractable pain but opted to return home. All: Contrast media, Sulfa Drugs, Levaquin Meds: Per chart PMH: As above PSH: Denies Past History - Travel Traveled outside of the country in the last 30 days: No Close contact w/someone who was outside of country & ill: No - Past Medical History Allergies/Adverse Reactions: Allergies Allergy/AdvReac Type Severity Reaction Status Date / Time Iodinated Contrast Media Allergy Severe Hives Verified 04/01/19 02:37 [IV Dye, Iodine Containing Contrast ] levofloxacin [From Levaquin] Allergy Unknown Verified 04/01/19 02:37 prochlorperazine edisylate Allergy Unknown Itching Verified 04/01/19 02:37 [From Compazine] prochlorperazine maleate Allergy Unknown Itching Verified 04/01/19 02:37 [From Compazine] Sulfa (Sulfonamide Allergy Unknown Verified 04/01/19 02:37 Antibiotics) [Sulfa(Sulfonamide Antibiotics)] doxycycline AdvReac Severe Swelling Verified 04/01/19 02:37 famotidine [From Pepcid] AdvReac Intermediate Verified 04/01/19 02:37 Home Medications: Ambulatory Orders Efavirenz/Emtricit/Tenofovr Df [Atripla Tablet] 1 each PO HS 09/12/12 Omeprazole [Prilosec] 40 mg PO DAILY 06/12/14 Hydrocodone/Ibuprofen [Vicoprofen 7.5-200 mg Tablet] 1 each PO TID 09/29/16 Cyclobenzaprine HCl [Flexeril -] 10 mg PO HS PRN 12/07/18 Simethicone 125 mg PO DAILY 03/29/19 Anemia: No Asthma: Yes (NO RECENT ATTACK) Cancer: Yes (H/O UTERINE CANCER at 25 yrs old) Cardiac Disorders: No CVA: No COPD: No DVT: No Dementia: No Diabetes: No GI Disorders: Yes (GERD,COLONIC POLYP) Disorders: Yes (hx of kidney stones) HTN: No Hypercholesterolemia: Yes Liver Disease: Yes (FATTY LIVER) Seizures: No Thyroid Disease: Yes (nodule on ultrasound) - Surgical History Abdominal Surgery: No Appendectomy: No Cardiac Surgery: No Cholecystectomy: No Lung Surgery: No Neurologic Surgery: No Orthopedic Surgery: (Right rotator cuff sx,Carpel tunnel) - Immunization History Immunization Up to Date: Yes - Psycho Social/Smoking Cessation Hx Smoking Status: Yes Smoking History: Unknown if ever smoked Have you smoked in the past 12 months: No Number of Cigarettes Smoked Daily: 8 If you are a former smoker, when did you quit?: 3 weeks ago 'Breaking Loose' booklet given: 09/07/17 Hx Alcohol Use: No Drug/Substance Use Hx: No Substance Use Type: None Hx Substance Use Treatment: No Review of Systems - Review of Systems Able to Perform ROS?: Yes Is the patient limited [place] proficient: Yes Constitutional: No: Chills, Fever, Malaise, Weakness HEENTM: No: Recent change in vision, Nose Congestion, Throat Pain Respiratory: No: Cough, Shortness of Breath, Productive cough Cardiac (ROS): No: Chest Pain, Irregular Heart Rate, Lightheadedness, Palpitations, Syncope, Chest Tightness ABD/GI: Yes: Nausea. No: Constipated, Diarrhea, Poor Appetite, Poor Fluid Intake, Vomiting : No: Burning, Dysuria, Frequency Musculoskeletal: No: Muscle Pain, Muscle Weakness Integumentary: No: Bruising, Pallor, Pruritus, Rash Neurological: No: Headache, Numbness, Tingling, Weakness Psychiatric: No: Stressors, Change in Appetite Endocrine: No: Increased Thirst, Increased Urine Hematologic/Lymphatic: No: Anemia, Blood Clots, Easy Bleeding All Other Systems: Reviewed and Negative *Physical Exam - Vital Signs Last Vital Signs Temp Pulse Resp BP Pulse Ox 98.0 F 115 H 18 132/97 97 04/01/19 02:34 04/01/19 02:34 04/01/19 02:34 04/01/19 02:34 04/01/19 02:34 - Physical Exam 04/01/19 03:53 Vitals reviewed, AF, tachy to 115, otherwise HDS GEN: Well appearing, appears stated age, NAD, uncomfortable. AAOx3. HEENT: NCAT, EOMI, PERRL. Sclera anicteric, noninjected. No facial asymmetry. Moist mucous membranes. Normal voice. Trachea midline. CV: RRR, S1/S2, no murmurs / rubs / gallops appreciated. LUNG: CTAB, normal work of breathing. No wheezes, rales, rhonchi. No cough. Speaking full sentences. GI: Soft, +TTP RUQ, non-distended, +BS, +guarding, no rebound. No masses. Neg CVAT b/l. EXTREMITIES: 2+ distal pulses. No LE edema. No obvious deformities of all extremities. SKIN: Warm, dry, no rashes appreciated, non-jaundiced. PSYCH: Normal mood and affect. Cooperative and appropriate. NEURO: CN grossly intact. Moving all extremities well. Normal strength and sensation grossly. ED Treatment Course - LABORATORY CBC & Chemistry Diagram: 04/01/19 03:36 04/01/19 03:36 Medical Decision Making - Medical Decision Making 04/01/19 04:13 58 yo F pmh HIV (on HAART), HLD, vertigo, and chronic back pain presenting with 10 days of abdominal pain (seen and evaluated 03/29 for the same pain and offered admission). History notable for 10 days of symptoms with negative workup 03/29, continued pain, worsening, otherwise unchanged, bowel prep done today for colonoscopy with Dr. Llamas. Exam notable for tachycardia to 110s, TTP RUQ and epigastrium. - CBC, CMP, Lactate - Morphine, Percocet x2 - UA (UTI on 03/29, no ABX given since asymptomatic at that time) - S/p Recent CT, RUQ without acute findings 04/01/19 05:57 - Continued pain despite medication - Colonoscopy scheduled for 2PM with Dr. Llamas, patient s/p prep, NPO 04/01/19 06:17 - Additional 2mg Morphine given - UA Negative Dispo: Admit - Intractable Abdominal Pain Discharge - Discharge Information Problems reviewed: Yes Clinical Impression/Diagnosis: Intractable abdominal pain Abdominal pain Qualifiers: Abdominal location: right upper quadrant Qualified Code(s): R10.11 - Right upper quadrant pain Condition: Guarded - Admission Yes - Follow up/Referral Referrals: Yandel Johnson MD [Primary Care Provider] - - Patient Discharge Instructions - Post Discharge Activity
--- NOTE | 2019-04-01 03:11 | PDOC ---
Attending Attestation - Resident Resident Name: SherHarpal - ED Attending Attestation I have performed the following: I have examined & evaluated the patient, The case was reviewed & discussed with the resident, I agree w/resident's findings & plan - HPI HPI: 04/01/19 03:51 Pt comes with RUQ pain who was seen here 3 days ago for abd pain and again today for the same. - Physicial Exam PE: 04/01/19 06:10 Pt is afebrile VSS HEENT normal skin no rash RUQ and epigastric pain Pt has gassy bowel sounds. +GOLYTELY for colonoscopy today no edema of the legs Neuro intact. 04/05/19 20:40 Agree with resident exam - Medical Decision Making 04/05/19 20:40 04/01/19 04:13 58 yo F pmh HIV (on HAART), HLD, vertigo, and chronic back pain presenting with 10 days of abdominal pain (seen and evaluated 03/29 for the same pain and offered admission). History notable for 10 days of symptoms with negative workup 03/29, continued pain, worsening, otherwise unchanged, bowel prep done today for colonoscopy with Dr. Llamas. Exam notable for tachycardia to 110s, TTP RUQ and epigastrium. - CBC, CMP, Lactate - Morphine, Percocet x2 - UA (UTI on 03/29, no ABX given since asymptomatic at that time) - S/p Recent CT, RUQ without acute findings 04/01/19 05:57 - Continued pain despite medication - Colonoscopy scheduled for 2PM with Dr. Llamas, patient s/p prep, NPO 04/01/19 06:17 - Additional 2mg Morphine given - UA Negative Dispo: Admit - Intractable Abdominal Pain
[2019-04-01] MEDS ORDERED: SODIUM CHLORIDE 0.9% 500 ML INFUS.BAG IV ONE (03:14)
[2019-04-01] MEDS ORDERED: morphine CARPU-JECT 2 MG/1 ML DISP.SYRIN IVPUSH ONE ×2 (03:15→06:07)
[2019-04-01 04:07] LABS: BASO % 1.2 % (0-2.0); HEMATOCRIT 44.1 % (32.4-45.2); HEMOGLOBIN 15.4 GM/dL (10.7-15.3); LYMPH % 29.3 % (8-40); MCH 32.3 pg (25.7-33.7); MEAN CELL VOLUME 92.2 fl (80-96); MEAN PLT VOLUME 8.7 fl (7.5-11.1); MONO % 5.3 % (3.8-10.2); NEUT % 62.2 % (42.8-82.8); PLATELET COUNT 247 K/MM3 (134-434); RBC 4.78 M/mm3 (3.60-5.2); RDW 12.8 % (11.6-15.6); WHITE BLOOD COUNT 12.9 K/mm3 (4.0-10.0)
[2019-04-01] MEDS ORDERED: MORPHINE SULFATE 2 MG/ML VIAL ONE ×2 (04:11→06:14)
[2019-04-01 04:30] LABS: ALK PHOS 174 U/L (45-117); ANION GAP 8 MMOL/L (8-16); BILIRUBIN,TOTAL 0.6 mg/dL (0.2-1); BLOOD UREA NITROGEN 11.7 mg/dL (7-18); CALCIUM 9.8 mg/dL (8.5-10.1); CHLORIDE 111 mmol/L (98-107); CO2 21 mmol/L (21-32); CREATININE 0.7 mg/dL (0.55-1.3); GLUCOSE,RANDOM 114 mg/dL (74-106); POTASSIUM 4.5 mmol/L (3.5-5.1); SGOT/AST 45 U/L (15-37); SGPT/ALT 49 U/L (13-61); SODIUM 140 mmol/L (136-145); TOT PROT 7.6 g/dl (6.4-8.2)
[2019-04-01] MEDS ORDERED: MAG HYDROX/AL HYDROX/SIMETH 30 ML UNIT-DOSE CUP PO ONE (04:41)
[2019-04-01] MEDS ORDERED: MAG HYDROX/AL HYDROX/SIMETH 30 ML UNIT-DOSE CUP ONE (05:49)
[2019-04-01 05:58] LABS: URINE APPEARANCE CLEAR; URINE BILIRUBIN NEGATIVE (NEGATIVE); URINE COLOR YELLOW; URINE GLUCOSE (UA) NEGATIVE (NEGATIVE); URINE KETONE NEGATIVE (NEGATIVE); URINE LEUK ESTERASE NEGATIVE (NEGATIVE); URINE NITRITE NEGATIVE (NEGATIVE); URINE PROTEIN NEGATIVE (NEGATIVE); URINE UROBILINOGEN 0.2 mg/dL (0.2-1.0)
--- NOTE | 2019-04-01 07:38 | PDOC ---
*Physical Exam - Vital Signs Last Vital Signs Temp Pulse Resp BP Pulse Ox 98.0 F 115 H 18 132/97 97 04/01/19 02:34 04/01/19 02:34 04/01/19 02:34 04/01/19 02:34 04/01/19 02:34 ED Treatment Course - LABORATORY CBC & Chemistry Diagram: 04/01/19 03:36 04/01/19 03:36 - ADDITIONAL ORDERS Additional order review: Laboratory Results 04/01/19 04/01/19 04/01/19 05:48 03:36 03:36 Sodium 140 Potassium 4.5 Chloride 111 H Carbon Dioxide 21 Anion Gap 8 BUN 11.7 Creatinine 0.7 Est GFR (CKD-EPI)AfAm 111.47 Est GFR (CKD-EPI)NonAf 96.18 Random Glucose 114 H Lactic Acid 1.8 Calcium 9.8 Total Bilirubin 0.6 AST 45 H ALT 49 Alkaline Phosphatase 174 H Total Protein 7.6 Albumin 4.0 Urine Color Yellow Urine Appearance Clear Urine pH 6.0 Ur Specific [place] 1.008 L Urine Protein Negative Urine Glucose (UA) Negative Urine Ketones Negative Urine Blood Negative Urine Nitrite Negative Urine Bilirubin Negative Urine Urobilinogen 0.2 Ur Leukocyte Esterase Negative 04/01/19 03:36 RBC 4.78 MCV 92.2 MCHC 35.0 RDW 12.8 MPV 8.7 Neutrophils % 62.2 D Lymphocytes % 29.3 D Monocytes % 5.3 Eosinophils % 2.0 Basophils % 1.2 - Medications Given in the ED: ED Medications Discontinued Medications Generic Name Dose Route Start Last Admin Trade Name Freq PRN Reason Stop Dose Admin Al Hydroxide/Mg Hydroxide 30 ml 04/01/19 04:41 04/01/19 05:57 Mylanta Oral Suspension - PO 04/01/19 04:42 30 ml ONCE ONE Administration Diphenhydramine HCl 50 mg 04/01/19 06:07 04/01/19 06:52 Benadryl Injection - IVPB 04/01/19 06:08 50 mg ONCE ONE Administration Morphine Sulfate 2 mg 04/01/19 03:15 04/01/19 04:18 Morphine Injection - IVPUSH 04/01/19 03:16 2 mg ONCE ONE Administration Morphine Sulfate 2 mg 04/01/19 06:07 04/01/19 06:52 Morphine Injection - IVPUSH 04/01/19 06:08 2 mg ONCE ONE Administration Oxycodone/Acetaminophen 2 combo 04/01/19 03:13 04/01/19 04:02 Percocet 5/325 - PO 04/01/19 03:14 Not Given ONCE ONE Sodium Chloride 1,000 ml 04/01/19 03:14 04/01/19 04:18 Normal Saline - IV 04/01/19 03:15 1,000 ml ONCE ONE Administration ED Progress Note - Progress Note Progress Note: 04/01/19 08:04 She states her pain is 7/10 at the present time, worsened by laying flat on her back, and located in all 4 quadrants with radiation to the back. She has her GB intact. On exam pt no longer tachycardic HR 93. TTP in mid-epigastrium. Wong NEG. Rovsing NEG. No pain at McBurney's point. She is s/p 2mg morphine, percocet at 4:13am and then 2mg morphine at 6:17am. Medical Decision Making - Medical Decision Making 04/01/19 07:35 Pt handed off by PM Dr. Olivarez; intractable abdominal pain. Hand off provided to Dr. Womack for admission to med-surg. Currently pt concerned about going for scheduled colonoscopy today with Dr. Llamas. EKG NSR, prolonged QTc 490. Trop pending. Discharge - Discharge Information Problems reviewed: Yes Clinical Impression/Diagnosis: Intractable abdominal pain Abdominal pain Qualifiers: Abdominal location: right upper quadrant Qualified Code(s): R10.11 - Right upper quadrant pain Condition: Guarded - Admission Yes - Follow up/Referral Referrals: Yandel Johnson MD [Primary Care Provider] - - Patient Discharge Instructions - Post Discharge Activity
--- NOTE | 2019-04-01 08:58 | EKG ---
Test Reason : Blood Pressure : / mmHG Vent. Rate : 097 BPM Atrial Rate : 097 BPM P-R Int : 166 ms QRS Dur : 086 ms QT Int : 386 ms P-R-T Axes : 043 031 055 degrees QTc Int : 490 ms NORMAL SINUS RHYTHM NONSPECIFIC T WAVE ABNORMALITY PROLONGED QT ABNORMAL ECG WHEN COMPARED WITH ECG OF 29-MAR-2019 15:47, VENT. RATE HAS INCREASED BY 34 BPM NONSPECIFIC T WAVE ABNORMALITY, WORSE IN LATERAL LEADS QT HAS LENGTHENED Confirmed by Jasiel Pickett ([id number]) on 04/01/2019 8:57:46 AM Referred By: Confirmed By:Jasiel Pickett
[2019-04-01] MEDS ORDERED: PANTOPRAZOLE SODIUM 40 MG VIAL ONE (11:11)
[2019-04-01] MEDS: PANTOPRAZOLE SODIUM 40 MG VIAL IVPUSH SCH (11:15)
[2019-04-01] MEDS ORDERED: ACETAMINOPHEN 1000 MG/100 ML VIAL (NON FORMULARY) IVPB PRN (11:34)
--- NOTE | 2019-04-01 11:51 | HP ---
CHIEF COMPLAINT: abdominal pain PCP: Dr. Yandel Johnson HISTORY OF PRESENT ILLNESS: Patient is a 58 year old female with past medical history of HIV (on HAART), HLD , vertigo, and chronic back pain, presented to the ED due to severe, intermittent, 10/10 Right upper back pain, RUQ and epigastric pain that started about 8 days ago. Patient reports pain appears suddenly, unaware of any aggravating factors, but previously relieved by pain medications. She reports nausea and bloating, but denies vomiting or diarrhea. She also reported that normally, she would have on average about 8 bowel movements per day, but in the last week, has decreased to about one a day. She was seen 3 days ago at the ED due to intractable abdominal pain, where CT of abdomen/pelvis was done which did not show any acute pathology. RUQ US was also done with no evidence of cholelithiasis/cholecystitis or biliary duct dilatation. Last night, patient took miralax as part of her bowel prep for colonoscopy scheduled for today, which she reported aggravated her abdominal pain so she directly came to the ED. Of note, patient reported she has been having these symptoms of less severity for a few months, to which she follows up with Dr. Llamas as outpatient. Patient denies any fevers, chills, headache, dizziness, chest pain, SOB, urinary symptoms. ER course was notable for: (1)WBC 12.9, AST 45, ALT 49, ALP 174 (2) (3) Recent Travel: denies PAST MEDICAL HISTORY: HIV (on HAART) HLD vertigo chronic back pain PAST SURGICAL HISTORY: R rotator cuff surgery Social History: Smoking:smokes 1/2 ppd >30 years Alcohol:denies Drugs: denies Family History: Father - DM, Mother - DM, lung CA Sister - DM, heart disease, breast ca Allergies Iodinated Contrast Media [IV Dye, Iodine Containing Contrast ] Allergy (Severe, Verified 04/01/19 02:37) Hives levofloxacin [From Levaquin] Allergy (Unknown, Verified 04/01/19 02:37) prochlorperazine edisylate [From Compazine] Allergy (Unknown, Verified 04/01/19 02:37) Itching prochlorperazine maleate [From Compazine] Allergy (Unknown, Verified 04/01/19 02 :37) Itching pt states twitiching Sulfa (Sulfonamide Antibiotics) [Sulfa(Sulfonamide Antibiotics)] Allergy ( Unknown, Verified 04/01/19 02:37) doxycycline Adverse Reaction (Severe, Verified 04/01/19 02:37) Swelling famotidine [From Pepcid] Adverse Reaction (Intermediate, Verified 04/01/19 02:37 ) HOME MEDICATIONS: Home Medications Medication Instructions Recorded Efavirenz/Emtricit/Tenofovr Df 1 each PO HS 09/12/12 [Atripla Tablet] Omeprazole [Prilosec] 40 mg PO DAILY 06/12/14 Hydrocodone/Ibuprofen [Vicoprofen 1 each PO TID 09/29/16 7.5-200 mg Tablet] Cyclobenzaprine HCl [Flexeril -] 10 mg PO HS PRN 12/07/18 Simethicone 125 mg PO DAILY 03/29/19 REVIEW OF SYSTEMS CONSTITUTIONAL: Absent: fever, chills, diaphoresis, generalized weakness, malaise, loss of appetite, weight change HEENT: Absent: rhinorrhea, nasal congestion, throat pain, throat swelling, difficulty swallowing, mouth swelling, ear pain, eye pain, visual changes CARDIOVASCULAR: Absent: chest pain, syncope, palpitations, irregular heart rate, lightheadedness , peripheral edema RESPIRATORY: Absent: cough, shortness of breath, dyspnea with exertion, orthopnea, wheezing, stridor, hemoptysis GASTROINTESTINAL:abdominal pain, nausea Absent: abdominal distension, vomiting, diarrhea, constipation, melena, hematochezia GENITOURINARY: Absent: dysuria, frequency, urgency, hesitancy, hematuria, flank pain, genital pain MUSCULOSKELETAL: Absent: myalgia, arthralgia, joint swelling, back pain, neck pain SKIN: Absent: rash, itching, pallor HEMATOLOGIC/IMMUNOLOGIC: Absent: easy bleeding, easy bruising, lymphadenopathy, frequent infections ENDOCRINE: Absent: unexplained weight gain, unexplained weight loss, heat intolerance, cold intolerance NEUROLOGIC: Absent: headache, focal weakness or paresthesias, dizziness, unsteady gait, seizure, mental status changes, bladder or bowel incontinence PSYCHIATRIC: Absent: anxiety, depression, suicidal or homicidal ideation, hallucinations. PHYSICAL EXAMINATION Vital Signs - 24 hr 04/01/19 04/01/19 02:34 06:36 Temperature 98.0 F 98.0 F Pulse Rate 115 H Pulse Rate [ 97 H Left Radial] Respiratory 18 15 Rate Blood Pressure 132/97 Blood Pressure 110/63 [Right Arm] O2 Sat by Pulse 97 98 Oximetry (%) GENERAL: Awake, alert, and fully oriented, in no acute distress. HEAD: Normal with no signs of trauma. EYES: PERRLA, EOMI, sclera anicteric, conjunctiva clear. EARS, NOSE, THROAT: Dry mucous membranes. NECK: Normal range of motion, supple without lymphadenopathy, JVD, or masses. LUNGS: Breath sounds equal, clear to auscultation bilaterally. HEART: Regular rate and rhythm, normal S1 and S2 without murmur, rub or gallop. ABDOMEN: Soft, +RUQ/epigastric tenderness, not distended, normoactive bowel sounds, no guarding. MUSCULOSKELETAL: Normal range of motion at all joints. No CVA tenderness. UPPER EXTREMITIES: 2+ pulses, warm, well-perfused. No peripheral edema. LOWER EXTREMITIES: 2+ pulses, warm, well-perfused. No peripheral edema. NEUROLOGICAL: Cranial nerves II-XII intact. Normal speech. Normal gait. PSYCHIATRIC: Cooperative. Good eye contact. Appropriate mood and affect. SKIN: Warm, dry, normal turgor, no rashes or lesions noted. Laboratory Results - last 24 hr 04/01/19 04/01/19 04/01/19 03:36 03:36 03:36 WBC 12.9 H RBC 4.78 Hgb 15.4 H Hct 44.1 MCV 92.2 MCH 32.3 MCHC 35.0 RDW 12.8 Plt Count 247 MPV 8.7 Absolute Neuts (auto) 8.0 Neutrophils % 62.2 D Lymphocytes % 29.3 D Monocytes % 5.3 Eosinophils % 2.0 Basophils % 1.2 Nucleated RBC % 0 Sodium 140 Potassium 4.5 Chloride 111 H Carbon Dioxide 21 Anion Gap 8 BUN 11.7 Creatinine 0.7 Est GFR (CKD-EPI)AfAm 111.47 Est GFR (CKD-EPI)NonAf 96.18 Random Glucose 114 H Lactic Acid 1.8 Calcium 9.8 Total Bilirubin 0.6 AST 45 H ALT 49 Alkaline Phosphatase 174 H Total Protein 7.6 Albumin 4.0 Urine Color Urine Appearance Urine pH Ur Specific [place] Urine Protein Urine Glucose (UA) Urine Ketones Urine Blood Urine Nitrite Urine Bilirubin Urine Urobilinogen Ur Leukocyte Esterase 04/01/19 05:48 WBC RBC Hgb Hct MCV MCH MCHC RDW Plt Count MPV Absolute Neuts (auto) Neutrophils % Lymphocytes % Monocytes % Eosinophils % Basophils % Nucleated RBC % Sodium Potassium Chloride Carbon Dioxide Anion Gap BUN Creatinine Est GFR (CKD-EPI)AfAm Est GFR (CKD-EPI)NonAf Random Glucose Lactic Acid Calcium Total Bilirubin AST ALT Alkaline Phosphatase Total Protein Albumin Urine Color Yellow Urine Appearance Clear Urine pH 6.0 Ur Specific [place] 1.008 L Urine Protein Negative Urine Glucose (UA) Negative Urine Ketones Negative Urine Blood Negative Urine Nitrite Negative Urine Bilirubin Negative Urine Urobilinogen 0.2 Ur Leukocyte Esterase Negative ASSESSMENT/PLAN: Patient is a 58 year old female with past medical history of HIV (on HAART), HLD , vertigo, and chronic back pain, presented to the ED due to severe, intermittent, 10/10 Right upper back pain, RUQ and epigastric pain that started about 8 days ago. #Abdominal pain -CTAP and RUQ US done in 03/29 revealed no acute pathology -may be biliary colic vs pancreatitis vs MSK vs gastritis vs IBS -GI (Dr. Llamas) consulted. -will order lipase, HIV meds including efavirenz/tenofovir may cause acute pancreatitis -pantoprazole 40mg daily -will keep NPO for now #HIV -continue home meds - #Chronic back pain -Oxycodone prn for pain -hold NSAIDs for now #FEN -Not on any standing fluids -Electrolytes wnl, routine bmp monitoring -NPO #Prophylaxis -Lovenox 40mg sq daily #Disposition -full code -admit to med surg Visit type - Emergency Visit Emergency Visit: Yes ED Registration Date: 04/01/19 Care time: The patient presented to the Emergency Department on the above date and was hospitalized for further evaluation of their emergent condition. - New Patient This patient is new to me today: Yes Date on this admission: 04/01/19 - Critical Care Critical Care patient: No ATTENDING PHYSICIAN STATEMENT I saw and evaluated the patient. I reviewed the resident's note and discussed the case with the resident. I agree with the resident's findings and plan as documented. SUBJECTIVE: OBJECTIVE: ASSESSMENT AND PLAN:
--- NOTE | 2019-04-01 13:01 | PN ---
Teaching Attending Note Name of Resident: Kayleigh Adams ATTENDING PHYSICIAN STATEMENT I saw and evaluated the patient. I reviewed the resident's note and discussed the case with the resident. I agree with the resident's findings and plan as documented. SUBJECTIVE: CC: Abd pain HPI: patient refused to participate ininterview or in exam. she was screamign and yelling about the need to get her colonoscopy that was scheduled today otherwise she would leave AMA . per Dr. Fernandez interview and per ER notes, she was seen in ER on 03/29 fo the same reason . and CT of chest /Abd/P was done with no acute pathology. US also showed no stones and no cholecystitis . there is a report of NSAIds use. she follows with Dr. Llamas who was planning to do colonoscopy today. during her prep last night her pain became worse and she presented to ER. of note she is walking back and forth in ER, looks comfortable, screaming and yelling at staff. speaking in full sentences . in ER , blood work showed elevated Alk phos ( chronic ) and slightly elevated AST . WBC was 12.5 EKG was reviewed. prolonged QTc, sinus rhythm. OBJECTIVE: refused exam. VS reviewed. as above ASSESSMENT AND PLAN: 58 y/olady with h/o HIV (on HAART), HLD, vertigo, and chronic back pain , chrinci intermittent abd pain which is being worked up as out pt. She presented due to worsening abd pain during colonoscopy prep. 1- Abd pain: unfortunately with patient refusing Exam and interview, my evaluation is limited. pain could be MS or due to chronic cholecystitis , or due to disc herniation. IBS also In DDX. - check lipase - spoke to Dr. Llamas . he will perform colonoscopy today enema to be given in End[facility]. - He will help with her evaluation in a consult - if Morven is neg , then for out pt HIDA - can give semithecone , and PPI , and antiacids - gall bladder roxana found on previous CT to be followed as out pt in 12 month 2- H/o HIV: cont her home meds ( has with her ) . f.u as out pt with her MD . 3- Incidental findings of T2 vertebral body sclerotic lesion , stable splenic artery aortic anerysm, 1.1 cm L adrenal gland nodule, and L hepatic granulomas are to be followed as out pt. dispo : will decide after colo
[2019-04-01 14:48] LABS: LIPASE 87 U/L (73-393)
[2019-04-01 17:53] VITALS: BMI 33.5
[2019-04-01] MEDS ORDERED: PT OWN MED DRAWER 7, Y5N ONE ×2 (18:53→19:14)
[2019-04-01] MEDS: MAG HYDROX/AL HYDROX/SIMETH -MYLANTA- ORAL SUSPENSION PO SCH ×2 (19:17→21:03)
[2019-04-01] MEDS ORDERED: oxyCODONE HCL 5 MG TABLET PO ONE (19:17)
[2019-04-01] MEDS ORDERED: LACTATED RINGERS SOLUTION 1,000 ML/1,000 ML INFUS.BAG IV SCH (19:30)
[2019-04-01] MEDS ORDERED: EMTRICITABINE 200MG/TENOFOVIR 300MG PO SCH (22:00)
[2019-04-01] MEDS ORDERED: EFAVIRENZ 600 MG TABLET PO SCH (22:00)
[2019-04-02] MEDS ORDERED: ACETAMINOPHEN 1000 MG/100 ML VIAL (NON FORMULARY) IVPB ONE ×2 (01:47→16:17)
[2019-04-02] MEDS ORDERED: PT OWN MED DRAWER 7, Y5N ONE ×3 (01:55→19:03)
[2019-04-02] MEDS: MAG HYDROX/AL HYDROX/SIMETH -MYLANTA- ORAL SUSPENSION PO SCH ×2 (06:18→15:15)
--- NOTE | 2019-04-02 07:45 | CON.GI ---
Consult Consult Specialty:: GI Reason for Consultation:: Colonoscopy, RUQ pain - History of Present Illness History of Present Illness: Patient is a 58 y/o female with past medical history of HIV (on HAART), HLD, Vertigo, and Chronic Back Pain. Patient states a week and a half ago she developed RUQ pain radiating to back accompanied with nausea. She says on she presented to ER after worsening pain and then developed vomiting. CTAP was done and showed colonic diverticulosis, stable splenic artery aneurysm, 1.1cm left adrenal adenoma, punctate calcified left hepatic lobe granulomas. Patient was discharged home thenon 04/01/19 at 1am woke up with severe pain and then presented to ER. Colonoscopy performed yesterday as scheduled and previous endoscopy from 03/2017 showed multiple erosions. Denies further episodes of vomiting, no reports of rectal bleeding. - History Source History Provided By: Patient Limitations to Obtaining History: No Limitations - Past Medical History Cardio/Vascular: Yes: HTN, Hyperlipdemia Pulmonary: Yes: Asthma Gastrointestinal: Yes: GERD (?). No: Cancer, GI Bleed Renal/: Yes: Renal Calculi ...: No Infectious Disease: Yes: HIV - Past Surgical History Past Surgical History: Yes: Tubal Ligation - Alcohol/Substance Use Hx Alcohol Use: No - Smoking History Smoking history: Unknown if ever smoked Have you smoked in the past 12 months: No Aproximately how many cigarettes per day: 8 If you are a former smoker, when did you quit?: 3 weeks ago - Social History Usual Living Arrangement: With Significant Other ADL: Independent History of Recent Travel: No Home Medications - Allergies Allergies/Adverse Reactions: Allergies Allergy/AdvReac Type Severity Reaction Status Date / Time Iodinated Contrast Media Allergy Severe Hives Verified 04/01/19 02:37 [IV Dye, Iodine Containing Contrast ] levofloxacin [From Levaquin] Allergy Unknown Verified 04/01/19 02:37 prochlorperazine edisylate Allergy Unknown Itching Verified 04/01/19 02:37 [From Compazine] prochlorperazine maleate Allergy Unknown Itching Verified 04/01/19 02:37 [From Compazine] Sulfa (Sulfonamide Allergy Unknown Verified 04/01/19 02:37 Antibiotics) [Sulfa(Sulfonamide Antibiotics)] doxycycline AdvReac Severe Swelling Verified 04/01/19 02:37 famotidine [From Pepcid] AdvReac Intermediate Verified 04/01/19 02:37 - Home Medications Home Medications: Ambulatory Orders Efavirenz/Emtricit/Tenofovr Df [Atripla Tablet] 1 each PO HS 09/12/12 Omeprazole [Prilosec] 40 mg PO DAILY 06/12/14 Hydrocodone/Ibuprofen [Vicoprofen 7.5-200 mg Tablet] 1 each PO TID 09/29/16 Cyclobenzaprine HCl [Flexeril -] 10 mg PO HS PRN 12/07/18 Simethicone 125 mg PO DAILY 03/29/19 Review of Systems - Review of Systems Constitutional: reports: No Symptoms Eyes: reports: No Symptoms HENT: reports: No Symptoms Neck: reports: No Symptoms Cardiovascular: reports: No Symptoms Respiratory: reports: No Symptoms Gastrointestinal: reports: Abdominal Pain, Bloating, Nausea, Vomiting Genitourinary: reports: No Symptoms Breasts: reports: No Symptoms Reported Musculoskeletal: reports: No Symptoms Integumentary: reports: No Symptoms Neurological: reports: No Symptoms Endocrine: reports: No Symptoms Hematology/Lymphatic: reports: No Symptoms Psychiatric: reports: No Symptoms Physical Exam-GI Vital Signs: Vital Signs Temperature 98.6 F 04/02/19 06:36 Pulse Rate 70 04/02/19 06:36 Respiratory Rate 20 04/02/19 01:00 Blood Pressure 119/60 04/02/19 06:36 O2 Sat by Pulse Oximetry (%) 99 04/01/19 21:00 Constitutional: Yes: No Distress, Calm Eyes: Yes: Conjunctiva Clear HENT: Yes: Atraumatic Cardiovascular: Yes: Regular Rate and Rhythm Respiratory: Yes: Regular, CTA Bilaterally Gastrointestinal Inspection: Yes: WNL. No: Ascites, Distention, Hernia, Scars, Other ...Auscultate: Yes: Normoactive Bowel Sounds. No: Hyperactive Bowel Sounds, Hypoactive Bowel Sounds, No Bowel Sounds, Other ...Palpate: Yes: Soft, Tenderness (RUQ). No: Firm/Rigid, Guarding, Hepatomegaly , Mass, Pulsatile Mass, Splenomegaly, Tenderness, Epigastium, Tenderness, Rebound, Other ...Percussion: Yes: Tympanitic. No: Dullness, Fluid Wave, Other Neurological: Yes: Alert, Oriented Psychiatric: Yes: Alert, Oriented Labs: CBC, BMP 04/01/19 03:36 04/01/19 03:36 Problem List - Problems (1) Intractable abdominal pain Assessment/Plan: R. HIDA scan to rule out gallbladder dyskenisia low fiber lactose free made aware t followup Code(s): R10.9 - UNSPECIFIED ABDOMINAL PAIN
[2019-04-02 07:58] LABS: HEMOGLOBIN 15.1 GM/dL (10.7-15.3); RBC 4.68 M/mm3 (3.60-5.2); WHITE BLOOD COUNT 11.6 K/mm3 (4.0-10.0)
[2019-04-02 07:59] LABS: BASO % 0.3 % (0-2.0); EOS % 2.3 % (0-4.5); HEMATOCRIT 44.1 % (32.4-45.2); LYMPH % 47.6 % (8-40); MCH 32.2 pg (25.7-33.7); MCHC 34.2 g/dl (32.0-36.0); MEAN CELL VOLUME 94.2 fl (80-96); MEAN PLT VOLUME 8.9 fl (7.5-11.1); MONO % 6.1 % (3.8-10.2); NEUT % 43.7 % (42.8-82.8); PLATELET COUNT 221 K/MM3 (134-434); RDW 12.4 % (11.6-15.6)
[2019-04-02] MEDS ORDERED: morphine SULFATE 4 MG/ML VIAL IVPUSH ONE (08:00)
[2019-04-02] MEDS ORDERED: INSULIN (NOVOLOG) ASPART 100 UNITS/ML 10ML VIAL ONE (08:10)
[2019-04-02] MEDS ORDERED: INSULIN (LEVEMIR) 100 UNITS/ML UNITS SQ ONE (08:10)
[2019-04-02 08:36] LABS: ALBUMIN 3.9 g/dl (3.4-5.0); BILIRUBIN,TOTAL 0.6 mg/dL (0.2-1); BLOOD UREA NITROGEN 14.3 mg/dL (7-18); CALCIUM 9.5 mg/dL (8.5-10.1); CREATININE 0.7 mg/dL (0.55-1.3); MAGNESIUM 2.7 mg/dL (1.8-2.4); PHOSPHOROUS 3.8 mg/dL (2.5-4.9); POTASSIUM 3.9 mmol/L (3.5-5.1); TOT PROT 7.5 g/dl (6.4-8.2)
[2019-04-02] MEDS ORDERED: ENOXAPARIN NA (PORCINE) 40 MG/0.4 ML DISP.SYRIN SQ SCH (10:00)
[2019-04-02] MEDS: PANTOPRAZOLE SODIUM 40 MG VIAL IVPUSH SCH (11:23)
[2019-04-02] MEDS ORDERED: MORPHINE SULFATE 2 MG/ML VIAL IVPUSH PRN (12:00)
[2019-04-02 17:11] VITALS: BP 121/85; PULSE 111; TEMP 98.5
--- NOTE | 2019-04-02 17:49 | PN ---
Teaching Attending Note Name of Resident: Jona Monteiro ATTENDING PHYSICIAN STATEMENT I saw and evaluated the patient. I reviewed the resident's note and discussed the case with the resident. I agree with the resident's findings and plan as documented. SUBJECTIVE:seen earlier no fever or chills. No ZEE . abd pain is better in RUQ OBJECTIVE: NAD Cv : RRr Lungs: CTAB Abd:soft , ND, TTP in RUQ. neg Wong's ASSESSMENT AND PLAN: 58 y/olady with h/o HIV (on HAART), HLD, vertigo, and chronic back pain , chrinci intermittent abd pain which is being worked up as out pt. She presented due to worsening abd pain during colonoscopy prep. 1- Abd pain: colo with no pathology to explain pain. HIDA with no dysmotility of gall bladder. she is to cont f/u with dr. Llamas fro further w/u - gall bladder roxana found on previous CT to be followed as out pt in 12 month 2- H/o HIV: cont her home meds 3- Incidental findings of T2 vertebral body sclerotic lesion , stable splenic artery aortic anerysm, 1.1 cm L adrenal gland nodule, and L hepatic granulomas are to be followed as out pt. dc home
--- NOTE | 2019-04-02 19:31 | DS ---
Physical Exam: SUBJECTIVE: Patient seen and examined at the bedside. Endorsed RUQ pain. Stated she wanted to eat but is worried she may vomit. Denied cp, sob, diarrhea, constipation, fever, chills, headaches, dizziness, lightheadedness. OBJECTIVE: Vital Signs Period Temp Pulse Resp BP Sys/Eng Pulse Ox Last 24 Hr 98.1 F-99 F 70-111 18-22 119-139/60-85 99-99 PHYSICAL EXAM GENERAL: Awake, alert, and fully oriented, in mild acute distress. HEAD: Normal with no signs of trauma. EYES: PERRLA, EOMI, sclera anicteric, conjunctiva clear. EARS, NOSE, THROAT: Dry mucous membranes. NECK: Normal range of motion, supple without lymphadenopathy, JVD. LUNGS: Breath sounds equal, clear to auscultation bilaterally. HEART: Regular rate and rhythm, normal S1 and S2 without murmur, rub or gallop. ABDOMEN: Soft, +RUQ/epigastric tenderness, not distended, normoactive bowel sounds, no guarding, no rebound tenderness. MUSCULOSKELETAL: Normal range of motion at all joints. No CVA tenderness. UPPER EXTREMITIES: 2+ pulses, warm, well-perfused. No peripheral edema. LOWER EXTREMITIES: 2+ pulses, warm, well-perfused. No peripheral edema. NEUROLOGICAL: Cranial nerves II-XII intact. 5/5 muscle strength upper and lower extremities. PSYCHIATRIC: Upset mood. SKIN: Warm, dry, normal turgor, no rashes or lesions noted. LABS Laboratory Results - last 24 hr 04/02/19 04/02/19 07:10 07:10 WBC 11.6 H RBC 4.68 Hgb 15.1 Hct 44.1 MCV 94.2 MCH 32.2 MCHC 34.2 RDW 12.4 Plt Count 221 MPV 8.9 Absolute Neuts (auto) 5.1 Neutrophils % 43.7 D Lymphocytes % 47.6 H D Monocytes % 6.1 Eosinophils % 2.3 Basophils % 0.3 Nucleated RBC % 0 Sodium 142 Potassium 3.9 Chloride 111 H Carbon Dioxide 23 Anion Gap 8 BUN 14.3 Creatinine 0.7 Est GFR (CKD-EPI)AfAm 111.47 Est GFR (CKD-EPI)NonAf 96.18 Random Glucose 121 H Calcium 9.5 Phosphorus 3.8 Magnesium 2.7 H Total Bilirubin 0.6 AST 22 ALT 40 Alkaline Phosphatase 174 H Total Protein 7.5 Albumin 3.9 HOSPITAL COURSE: Yamilka Chance is a 58 year old female with past medical history of HIV (on HAART), HLD, vertigo, and chronic back pain, admitted for intractable abdominal pain. Patient underwent a colonoscopy which found diverticulosis and should follow up with a repeat colonoscopy in 10 years. Patient had a HIDA scan a normal filling gallbladder, EF of 80% (normal), delayed biliary transit of tracer after 60 minutes of imaging likely due to opiate medications causing spasm at ampulla. Was given Protonix, Mylanta, and pain medications. Was seen by GI and advised to have low fiber/low residue diet and to follow up with GI outpatient. No acute findings were found on imaging. On imaging chronic findings of stable splenic artery aneurysm, 1.1cm adrenal adenoma, L hepatic granulomas which the patient was advised to follow up outpatient and with a repeat abd CT scan in 6 months. Patient was advised to continue all home medications and to follow up with her PCP and GI outpatient. Patient was discharged in stable medical condition. Date of Admission:04/01/19 Date of Discharge: 04/02/19 Minutes to complete discharge: 35 Discharge Summary Problems reviewed: Yes Reason For Visit: RT UPPER QUARDRANT & INTRACTABLE ABD PAIN Condition: Improved - Instructions Diet, Activity, Other Instructions: You were admitted for abdominal pain. You had a colonoscopy performed by Dr. Llamas which showed some diverticulosis (outpouches of your colon) for which you should follow up with a routine colonoscopy in 10 years. You had a HIDA scan (scan of your gallbladder) which showed normal function of your gallbladder , no obstruction, but reduced transit into your intestines which is likely due to your pain medication use. You had a scan of your abdomen which showed a stable aneurysm in your splenic artery, adrenal gland nodule, lesions on your liver, and a lesion on one of your vertebrae , and apolyp in your gall bladder for which you should follow up with your primary care provider. You are advised to follow up with Dr. Llamas for your abdominal pain. MEDICATIONS Please continue to take all of your home medications as prescribed. REFERRALS Please follow up with your primary care provider, Dr. Johnson, within 1 week. Please follow up with your picture frame maker, Dr. Llamas, within 1 week. SPECIAL INSTRUCTIONS Please eat a low fiber diet to improve your pain. You are advised to have a repeat CT scan of your abdomen to follow up on the findings noted above. If you have any symptoms of inability to eat, non-stop vomiting, blood in the vomit, bloody or dark stool, chest pain, shortness of breath, or any other general feelings of unwellness, please call 911 or go to your nearest emergency room. Referrals: Yandel Johnson MD [Primary Care Provider] - 1 Week Chace Llamas MD [Staff Physician] - 1 Week Disposition: HOME - Home Medications Comprehensive Discharge Medication List: Ambulatory Orders Efavirenz/Emtricit/Tenofovr Df [Atripla Tablet] 1 each PO HS 09/12/12 Hydrocodone/Ibuprofen [Vicoprofen 7.5-200 mg Tablet] 1 each PO TID 09/29/16 Cyclobenzaprine HCl [Flexeril -] 10 mg PO HS PRN 12/07/18 Omeprazole 40 mg PO DAILY 04/02/19 Problem List - Problems (1) Asthma Code(s): J45.909 - UNSPECIFIED ASTHMA, UNCOMPLICATED (2) Diverticulosis Code(s): K57.90 - DVRTCLOS OF INTEST, PART UNSP, W/O PERF OR ABSCESS W/O BLEED (3) GERD (gastroesophageal reflux disease) Code(s): K21.9 - GASTRO-ESOPHAGEAL REFLUX DISEASE WITHOUT ESOPHAGITIS (4) HIV (human immunodeficiency virus infection) Code(s): Z21 - ASYMPTOMATIC HUMAN IMMUNODEFICIENCY VIRUS INFECTION STATUS (5) HLD (hyperlipidemia) Code(s): E78.5 - HYPERLIPIDEMIA, UNSPECIFIED (6) HTN (hypertension) Code(s): I10 - ESSENTIAL (PRIMARY) HYPERTENSION (7) Abdominal pain Code(s): R10.9 - UNSPECIFIED ABDOMINAL PAIN Qualifiers: Abdominal location: right upper quadrant Qualified Code(s): R10.11 - Right upper quadrant pain (8) Intractable abdominal pain Code(s): R10.9 - UNSPECIFIED ABDOMINAL PAIN This patient is new to me today: Yes Date on this admission: 04/02/19 Emergency Visit: Yes ED Registration Date: 04/01/19 Care time: The patient presented to the Emergency Department on the above date and was hospitalized for further evaluation of their emergent condition. Critical Care patient: No - Discharge Referral Referred to [facility] Med P.C[facility] No
== END 2019-04-02 18:38 | disposition home or self-care (01) | DRG 244 ==
LOC: JER 02:27 → JERBED 04:44 → J8W 17:14
PROVIDERS: ADMIT Internal Medicine; ATTEND Internal Medicine
PROC: 0DJD8ZZ Inspection of Lower Intestinal Tract, Via Natural or Artificial Opening Endoscopic (ICD-10-PCS; principal; 2019-04-01 14:30)
DX: K57.90 Diverticulosis of intestine, part unspecified, without perforation or abscess without bleeding (principal); I72.8 Aneurysm of other specified arteries; K75.3 Granulomatous hepatitis, not elsewhere classified; D35.00 Benign neoplasm of unspecified adrenal gland; M54.9 Dorsalgia, unspecified; K76.0 Fatty (change of) liver, not elsewhere classified; Z21 Asymptomatic human immunodeficiency virus [HIV] infection status; E78.5 Hyperlipidemia, unspecified; K21.9 Gastro-esophageal reflux disease without esophagitis
CPT/HCPCS: 36415; 78227-TC; 80053; 81003; 83605; 83690; 83735; 84100; 84484; 85025; 93005; 93010; 99285-25; A9537; J0131

== ENCOUNTER 2021-02-16 14:35 | Emergency (ER) | payer OTHER ==
[2021-02-16 14:45] VITALS: BMI 31.6
[2021-02-16] MEDS ORDERED: ACETAMINOPHEN 1000 MG/100 ML VIAL IVPB ONE (17:01)
[2021-02-16] MEDS ORDERED: LACTATED RINGERS SOLUTION 1000 ML INFUS.BAG IV ONE (17:01)
[2021-02-16] MEDS ORDERED: ONDANSETRON 4 MG/2 ML VIAL IVPUSH ONE (17:02)
[2021-02-16] MEDS ORDERED: ONDANSETRON 4 MG/2 ML VIAL ONE (17:06)
[2021-02-16] MEDS ORDERED: ACETAMINOPHEN INJECTION 100 ML IVPB ONE (17:06)
[2021-02-16 18:34] LABS: BASO % 0.9 % (0-2.0); EOS % 2.5 % (0-4.5); HEMATOCRIT 42.5 % (32.4-45.2); HEMOGLOBIN 14.8 GM/dL (10.7-15.3); MCH 32.2 pg (25.7-33.7); MCHC 34.9 g/dl (32.0-36.0); MEAN CELL VOLUME 92.4 fl (80-96); MEAN PLT VOLUME 8.6 fl (7.5-11.1); NEUT % 52.6 % (42.8-82.8); PLATELET COUNT 213 10^3/uL (134-434); RDW 12.8 % (11.6-15.6); WHITE BLOOD COUNT 9.3 K/mm3 (4.0-10.0)
[2021-02-16 18:50] LABS: CALCIUM 9.9 mg/dL (8.5-10.1)
[2021-02-16 18:51] LABS: ALBUMIN 4.1 g/dl (3.4-5.0); BLOOD UREA NITROGEN 13.9 mg/dL (7-18); EPI CELLS 9 /uL (0-25.1); HYALINE CASTS 1 /uL (0-3.1); MAGNESIUM 2.5 mg/dL (1.8-2.4); URINE APPEARANCE CLEAR; URINE BACTERIA 46 /uL (0-1359); URINE BILIRUBIN NEGATIVE (NEGATIVE); URINE COLOR YELLOW; URINE GLUCOSE (UA) NEGATIVE (NEGATIVE); URINE KETONE NEGATIVE (NEGATIVE); URINE LEUK ESTERASE TRACE (NEGATIVE); URINE NITRITE NEGATIVE (NEGATIVE); URINE PROTEIN NEGATIVE (NEGATIVE); URINE RBC 1 /uL (0-23.9); URINE UROBILINOGEN 0.2 mg/dL (0.2-1.0); URINE WBC 11 /uL (0-25.8)
[2021-02-16 18:54] LABS: CREATININE 0.7 mg/dL (0.55-1.3)
[2021-02-16 18:56] LABS: TOT PROT 7.6 g/dl (6.4-8.2)
[2021-02-16] MEDS ORDERED: morphine CARPU-JECT 2 MG/1 ML DISP.SYRIN IVPUSH ONE (19:50)
[2021-02-16] MEDS ORDERED: morphine CARPU-JECT 4 MG/1 ML DISP.SYRIN IVPUSH ONE ×2 (19:52→22:37)
[2021-02-16] MEDS ORDERED: morphine SULFATE 4 MG/ML VIAL ONE ×2 (19:54→22:41)
[2021-02-17] MEDS ORDERED: SODIUM CHLORIDE 1,000 ML IV ONE (00:34)
[2021-02-17] MEDS ORDERED: morphine CARPU-JECT 2 MG/1 ML DISP.SYRIN IVPUSH ONE (01:42)
[2021-02-17] MEDS ORDERED: ACETAMINOPHEN 1000 MG/100 ML VIAL IVPB ONE (04:59)
[2021-02-17 08:11] VITALS: BP 161/92; PULSE 86; TEMP 98.9
[2021-02-17] MEDS ORDERED: morphine CARPU-JECT 4 MG/1 ML DISP.SYRIN IVPUSH ONE (08:12)
== END 2021-02-17 08:25 | disposition short-term general hospital (02) ==
LOC: JER 14:35
PROC: 3E033GC Introduction of Other Therapeutic Substance into Peripheral Vein, Percutaneous Approach (ICD-10-PCS; principal; 2021-02-16)
DX: K80.50 Calculus of bile duct without cholangitis or cholecystitis without obstruction (principal)
CPT/HCPCS: 36415; 71046-TC-FY; 74176-TC; 76705-TC; 80053; 81003; 83605; 83690; 83735; 85025; 87086; 93005; 93010; 99285-25; C9803; J0131; U0003; U0005

== ENCOUNTER 2021-03-08 13:56 | Emergency (ER) | payer OTHER ==
[2021-03-08 14:28] VITALS: TEMP 97.7; BMI 31.5
[2021-03-08] MEDS ORDERED: morphine CARPU-JECT 4 MG/1 ML DISP.SYRIN IVPUSH ONE (15:01)
[2021-03-08] MEDS ORDERED: morphine SULFATE 4 MG/ML VIAL ONE (15:15)
[2021-03-08] MEDS ORDERED: SODIUM CHLORIDE 0.9% 500 ML INFUS.BAG IV ONE (15:31)
[2021-03-08 16:06] LABS: BASO % 1.2 % (0-2.0); HEMATOCRIT 42.8 % (32.4-45.2); HEMOGLOBIN 14.5 GM/dL (10.7-15.3); LYMPH % 52.6 % (8-40); MCH 31.4 pg (25.7-33.7); MCHC 33.8 g/dl (32.0-36.0); MEAN CELL VOLUME 92.7 fl (80-96); MEAN PLT VOLUME 8.8 fl (7.5-11.1); MONO % 4.6 % (3.8-10.2); NEUT % 38.6 % (42.8-82.8); PLATELET COUNT 253 10^3/uL (134-434); RBC 4.62 M/mm3 (3.60-5.2); RDW 12.6 % (11.6-15.6)
[2021-03-08] MEDS ORDERED: KETAMINE HCL 500 MG/10 ML VIAL IVPB ONE (16:48)
[2021-03-08 16:49] LABS: EPI CELLS 8 /uL (0-25.1); HYALINE CASTS 1 /uL (0-3.1); PH,URINE 6.5 (5.0-8.0); URINE APPEARANCE CLEAR; URINE BACTERIA 108 /uL (0-1359); URINE BILIRUBIN NEGATIVE (NEGATIVE); URINE COLOR YELLOW; URINE GLUCOSE (UA) NEGATIVE (NEGATIVE); URINE KETONE NEGATIVE (NEGATIVE); URINE LEUK ESTERASE TRACE (NEGATIVE); URINE NITRITE NEGATIVE (NEGATIVE); URINE PROTEIN NEGATIVE (NEGATIVE); URINE RBC 2 /uL (0-23.9); URINE UROBILINOGEN 0.2 mg/dL (0.2-1.0); URINE WBC 15 /uL (0-25.8)
[2021-03-08] MEDS ORDERED: LIDOCAINE 5% TOPICAL PATCH TP ONE (16:49)
[2021-03-08 17:09] LABS: CHLORIDE 110 mmol/L (98-107); SODIUM 143 mmol/L (136-145)
[2021-03-08] MEDS ORDERED: KETAMINE HCL 200 MG/20 ML VIAL ONE (17:11)
[2021-03-08] MEDS ORDERED: LIDOCAINE 5% TOPICAL PATCH ONE (17:11)
[2021-03-08 17:12] LABS: ALBUMIN 3.7 g/dl (3.4-5.0); ANION GAP 10 MMOL/L (8-16); CALCIUM 9.7 mg/dL (8.5-10.1); CO2 23 mmol/L (21-32); GLUCOSE,RANDOM 92 mg/dL (74-106)
[2021-03-08 17:13] LABS: BLOOD UREA NITROGEN 9.2 mg/dL (7-18); LIPASE 92 U/L (73-393)
[2021-03-08 17:15] LABS: CREATININE 0.6 mg/dL (0.55-1.3); SGOT/AST 20 U/L (15-37); SGPT/ALT 28 U/L (13-61)
[2021-03-08 17:16] LABS: BILIRUBIN,TOTAL 0.4 mg/dL (0.2-1); TOT PROT 6.9 g/dl (6.4-8.2)
[2021-03-08 17:18] LABS: ALK PHOS 169 U/L (45-117)
[2021-03-08 18:59] VITALS: BP 99/68; PULSE 86
[2021-03-08] MEDS ORDERED: LIDOCAINE PATCH REMOVAL MC ONE (22:00)
== END 2021-03-08 20:39 | disposition home or self-care (01) ==
LOC: JER 13:56
PROC: 3E033GC Introduction of Other Therapeutic Substance into Peripheral Vein, Percutaneous Approach (ICD-10-PCS; principal; 2021-03-08)
PROC: 3E033NZ Introduction of Analgesics, Hypnotics, Sedatives into Peripheral Vein, Percutaneous Approach (ICD-10-PCS; 2021-03-08)
DX: R10.9 Unspecified abdominal pain (principal); Z90.49 Acquired absence of other specified parts of digestive tract
CPT/HCPCS: 36415; 76705-TC; 80053; 81003; 82550; 83690; 84484; 85025; 87086; 93005; 93010; 99285-25

== ENCOUNTER 2023-07-28 09:02 | Emergency (ER) | payer OTHER ==
[2023-07-28 09:11] VITALS: BP 117/67; PULSE 94; RESP 18; TEMP 98; BMI 29.9
[2023-07-28] MEDS ORDERED: MAG HYDROX/AL HYDROX/SIMETH 30 ML UNIT-DOSE CUP PO ONE (09:38)
[2023-07-28] MEDS ORDERED: ONDANSETRON 4 MG/2 ML VIAL ONE (09:43)
[2023-07-28] MEDS ORDERED: FAMOTIDINE 20 MG/50 ML IVPB 20 MG/50 ML MG IVPB ONE (09:43)
[2023-07-28] MEDS ORDERED: ACETAMINOPHEN INJECTION 100 ML IVPB ONE (10:12)
[2023-07-28] MEDS: ONDANSETRON 4 MG/2 ML VIAL IVPUSH ONE (10:24)
[2023-07-28] MEDS: LACTATED RINGERS SOLUTION 1000 ML INFUS.BAG IV ONE (10:24)
[2023-07-28] MEDS: FAMOTIDINE 20 MG/50 ML IVPB 20 MG/50 ML MG IVPB ONE (10:24)
[2023-07-28 10:25] LABS: BASO % 0.9 % (0-2.0); EOS % 2.3 % (0-4.5); HEMATOCRIT 42.1 % (32.4-45.2); HEMOGLOBIN 14.9 GM/dL (10.7-15.3); LYMPH % 26.4 % (8-40); MCH 32.6 pg (25.7-33.7); MCHC 35.3 g/dl (32.0-36.0); MEAN CELL VOLUME 92.3 fl (80-96); MEAN PLT VOLUME 8.4 fl (7.5-11.1); MONO % 7.5 % (3.8-10.2); NEUT % 62.9 % (42.8-82.8); PLATELET COUNT 201 10^3/uL (134-434); RBC 4.56 M/mm3 (3.60-5.2); RDW 13.1 % (11.6-15.6); WHITE BLOOD COUNT 7.2 K/mm3 (4.0-10.0)
[2023-07-28] MEDS: ACETAMINOPHEN 1000 MG/100 ML BAG IVPB ONE (10:30)
[2023-07-28 10:43] LABS: POTASSIUM 4.1 mmol/L (3.5-5.1)
[2023-07-28 10:47] LABS: BLOOD UREA NITROGEN 17.4 mg/dL (7-18); CALCIUM 9.6 mg/dL (8.5-10.1)
[2023-07-28 10:48] LABS: ALBUMIN 3.9 g/dl (3.4-5.0); MAGNESIUM 2.1 mg/dL (1.8-2.4)
[2023-07-28 10:51] LABS: CREATININE 0.9 mg/dL (0.55-1.3)
[2023-07-28 10:52] LABS: BILIRUBIN,TOTAL 0.4 mg/dL (0.2-1)
== END 2023-07-28 11:33 | disposition home or self-care (01) ==
LOC: JER 09:02
PROC: 3E033NZ Introduction of Analgesics, Hypnotics, Sedatives into Peripheral Vein, Percutaneous Approach (ICD-10-PCS; principal; 2023-07-28)
PROC: 3E033GC Introduction of Other Therapeutic Substance into Peripheral Vein, Percutaneous Approach (ICD-10-PCS; 2023-07-28)
DX: R19.7 Diarrhea, unspecified (principal); R10.9 Unspecified abdominal pain; Z20.822 Contact with and (suspected) exposure to COVID-19
CPT/HCPCS: 0241U-QW; 36415; 80053; 83690; 83735; 85025; 99284-25; J0131

== ENCOUNTER 2023-09-09 17:08 | Emergency (ER) | payer OTHER ==
[2023-09-09 17:13] VITALS: BP 124/69; PULSE 101; RESP 18; TEMP 98.3; BMI 29.9
[2023-09-09] MEDS ORDERED: ACETAMINOPHEN INJECTION 100 ML IVPB ONE (18:41)
[2023-09-09] MEDS ORDERED: METOCLOPRAMIDE HCL INJECTION 10 MG/2 ML VIAL ONE (18:41)
[2023-09-09 18:47] LABS: BASO % 0.1 % (0-2.0); HEMATOCRIT 41.4 % (32.4-45.2); HEMOGLOBIN 14.5 GM/dL (10.7-15.3); LYMPH % 34.4 % (8-40); MCH 32.5 pg (25.7-33.7); MEAN CELL VOLUME 92.9 fl (80-96); MEAN PLT VOLUME 8.1 fl (7.5-11.1); MONO % 5.6 % (3.8-10.2); NEUT % 56.9 % (42.8-82.8); PLATELET COUNT 212 10^3/uL (134-434); RBC 4.45 M/mm3 (3.60-5.2); RDW 12.5 % (11.6-15.6); WHITE BLOOD COUNT 9.1 K/mm3 (4.0-10.0)
[2023-09-09] MEDS: SODIUM CHLORIDE 0.9% 500 ML INFUS.BAG IV ONE (18:53)
[2023-09-09] MEDS: ACETAMINOPHEN 1000 MG/100 ML BAG IVPB ONE (18:53)
[2023-09-09] MEDS: METOCLOPRAMIDE HCL INJECTION 10 MG/2 ML VIAL IVPB ONE (18:55)
[2023-09-09 19:05] LABS: POTASSIUM 4.6 mmol/L (3.5-5.1)
[2023-09-09 19:06] LABS: MAGNESIUM 2.1 mg/dL (1.8-2.4)
[2023-09-09 19:07] LABS: ALBUMIN 3.8 g/dl (3.4-5.0); BLOOD UREA NITROGEN 16.4 mg/dL (7-18); CALCIUM 9.6 mg/dL (8.5-10.1)
[2023-09-09 19:10] LABS: CREATININE 0.7 mg/dL (0.55-1.3)
[2023-09-09 19:12] LABS: BILIRUBIN,TOTAL 0.3 mg/dL (0.2-1)
== END 2023-09-09 20:23 | disposition home or self-care (01) ==
LOC: JER 17:08
DX: R51.9 Headache, unspecified (principal); R11.2 Nausea with vomiting, unspecified; R19.7 Diarrhea, unspecified; R07.89 Other chest pain
CPT/HCPCS: 0241U-QW; 36415; 70450-TC; 71045-TC-FY; 80053; 83735; 84443; 84484; 85025; 93005; 93010; 99285-25; J0131